=== PATIENT | male | born 2000 | race Caucasian/White ===

== ENCOUNTER 2021-04-06 00:28 | Emergency (ER) | payer OTHER, SELFPAY ==
[2021-04-06 00:33] VITALS: BP 146/77; PULSE 90; RESP 18; TEMP 37; O2SAT 99; BMI 29.0
--- NOTE | 2021-04-06 00:48 | PC.NURSE ---
Mom is in waiting room able to give information- [phone]
--- NOTE | 2021-04-06 02:03 | ED_ITS ---
HPI - Psych General Chief Complaint: Psychiatric Symptoms Stated Complaint: suicidal, depressed Time Seen by Provider: 04/06/21 00:45 Source: patient and family (Mother) Mode of arrival: ambulatory History of Present Illness HPI Narrative: This is a 20-year-old male with a longstanding history of depression who is brought in by his mother for communicating to her that he wished to kill himself. Patient initially is stating that he had overdosed previously on Benadryl and states that that is what his plan is, but when the mother informed the patient that those pills are no longer available patient then states ?I do not know what I would do, but I do not feel like I want to live?. He then asks his mother to leave the room and proceeds to inform me that he had a girlfriend for approximately 1 week and that she ?broke up with me to day and still wants to be friends?. Patient states that this is very difficult and that he is unable to deal with this. He states that while he was with her he felt the best he has in his life and that things were ?possible?. He states that since they have broken up he feels ?worse than before?. He denies any homicidal ideation denies any AVH. Related Data Home Medications Medication Instructions Recorded Confirmed epinephrine 0.3 mg IM NEEDED PRN 04/06/21 04/06/21 fluoride (sodium) 1 appl PO DIRECTED 04/06/21 04/06/21 temazepam 2 cap PO DAILY 04/06/21 04/06/21 trazodone 1 tab PO DAILY 04/06/21 04/06/21 Allergies Allergy/AdvReac Type Severity Reaction Status Date / Time peanut [PEANUT] Allergy Severe ANAPHYLAXIS Verified 04/06/21 00:57 Review of Systems Review of Systems: Pertinent positives and negatives as stated in HPI 10 point review of systems is otherwise negative. PMFSH Past Medical History Source: nursing notes reviewed Medical History Autism Depression Hypospadias Infected dog bite of face OCD (obsessive compulsive disorder) Surgical History History of tonsillectomy Social History Social History Advance Directives: No Advance Directives Information Provided: No Physical Exam Vital Signs: Vital Signs: Last Vital Signs Temp 98.6 F 04/06/21 00:33 Pulse 90 04/06/21 00:33 Resp 18 04/06/21 00:33 BP 146/77 H 04/06/21 00:33 Pulse Ox 99 04/06/21 00:33 Body Mass Index 29.0 VITAL SIGNS: Reviewed. GENERAL: Well developed, well nourished, in no acute distress. HEAD: Normocephalic/atraumatic EYES: PERRLA, EOMI OROPHARYNX: no oral lesions noted, posterior pharynx clear NECK: Supple, no adenopathy LUNGS: Normal breath sounds. SpO2<99> CARDIOVASCULAR: Regular rate and rhythm without noted murmurs ABDOMEN: Soft, non-tender, non-distended with bowel sounds. SKIN: Inspection of the skin reveals no rashes NEUROLOGIC: Alert and oriented x 4. Course Course Course Narrative: 20-year-old male with history and clinical presentation consistent with depression and prior SI with attempt with pills. Of note, mother endorses that his medication was recently decreased and patient admitted during interview that this may contribute to his overall increase in feelings of sadness. Patient to undergo evaluation by the crisis team. Discussion with the crisis team, they feel that patient has excellent support systems and that although he is feeling very sad and depressed he does not have concerning features or plans for killing himself and they feel that he is a safe discharge with enrollment in partial outpatient program for therapy. Patient and mother are agreeable to the partial care plan and prefer this as the patient states that last time he was an inpatient it was a traumatic experience. Therefore, given patient has strong support systems, lack of access to pills as his mother is actively involved in his care, and combination with plans for re- evaluation by the crisis team in the outpatient setting with a safety plan in place patient will be discharged home in the care of his mother. Discharge Plan Discharge Clinical Impression: Depression Patient Disposition: Home, Self-Care Instructions: Depression (ED) Additional Instructions: Resume all home medications as prescribed. Return to the ER for any acute worsening thoughts or feelings about hurting yourself. Prescriptions: No Action trazodone 50 mg tablet 1 tab PO DAILY RF: 0 temazepam 15 mg capsule 2 cap PO DAILY RF: 0 epinephrine 0.3 mg/0.3 mL auto-injector 0.3 mg IM NEEDED PRN (Reason: Anaphylaxis) RF: 0 fluoride (sodium) 1.1 % paste 1 appl PO DIRECTED RF: 0 Referrals: Physician,Unknown [Primary Care Provider] - 2 days
--- NOTE | 2021-04-06 03:22 | MHC.CARE ---
Pt presents to the ED accompanied by his mother for worsening depression and suicidal ideation. Pt's mother reports pt was diagnosed with asphergres d/0 at 6 years old and pt struggles with social interactions therefore internalizes a lot of thoughts/feelings. Mother reports that at baseline, he is depressed and reports suicidal ideation, however today was different. She reports that he disclosed that he wanted to end his life and and I'm really going to do it this time . Pt reports he is painfully tired and shares that he has been hopeless/helpless for many years. He shares that the pandemic and isolation was somewhat comforting to him as he felt now people can get a sense of how I feel every day and for my entire life . He states the pandemic actually did the opposite for him and motivated him, gave him hope and he met many people online that he doesn't feel he would if there was not an pandemic. Pt reports his sleep is poor but has always been poor and appetite is WNL. He appears depressed with no eye contact and affect is flat. He talks about the precipitant being a recent break up. He explains that he met a girl online, had talked to her constantly and at one point in my life I was happy . he ended up going to [place] to meet her and spent the day with her. The following day, she terminated the relationship reporting they are better suited as friends and that the distance could strain their relationship. He reports that she still is interested in remaining friends with him and talk to him everyday but this destroyed him and I want more than what she can give me . He states he is devastated and keeps asking himself if life is really worth it. He shares that one of his moms, he is really close to but the other one he struggles with. He states she recently had a stroke and explains this did some damage on her brain. He shares that it is challenging for him because she just isn't the same . Pt discloses suicidal thinking, denies plan or intent. 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 He states I really don't want to do anything, but I think about it a lot. I have been picking up extra jobs to commit to so that I can say to myself that people need me . He is able to verbalize that he can remain safe and return home. He denies current suicidal ideation and a safety plan was discussed and written. Pt's mother reports that when he was in 7th grade, he ingested several pills of Benadryl and was admitted to ICU and then to [facility]. [place] was not helpful to him and was very traumatizing that this always deterred him from any suicide attempt. Mom ([place]) reports that she does not believe pt has the energy or motivation to carry out a plan or attempt. She adds that he wouldn't know how, he doesn't know what to do with a knife and he would be too scared to . She describes when he ingested the Benadryl this was not classified as a suicide attempt, she reports he just wanted to sleep, in his mind he thought was an reasonable action. Both mother and pt deny any recent attempts. Pt has a therapist, Dr. Timoteo Duarte that pt sees for individual therapy and family sessions. His psychiatrist is Dr. Parker Reyes. Mom reports that he has been tapered off of his antidepressants and has not seen any difference than when he was on them. 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 [facility] was discussed with him and mom in which he was receptive to. He will call [facility] tomorrow to clarify if it is all remote or in person. He will then complete an intake when necessary and start treatment. Safety plan was conducted and he agreed to follow. Pt is requesting to be discharged and wants to sleep.
--- NOTE | 2021-04-06 03:28 | PC.NURSE ---
Patient calm and quiet in his room with mother at bedside, care team completed assessment, disposition is to d/c home with safety plan, patient and provider aware of it, awaiting d/c paper, no distress reported, will continue to monitor
== END 2021-04-06 04:30 | disposition home or self-care (01) ==
PROVIDERS: Emergency Provider Student in an Organized Health Care Education/Training Program
DX: F32.9 Major depressive disorder, single episode, unspecified (principal); F84.0 Autistic disorder; Z91.5 Personal history of self-harm
CPT/HCPCS: 99283

== ENCOUNTER 2023-03-19 23:09 | Inpatient (IN) | payer OTHER, SELFPAY ==
[2023-03-19 23:11] VITALS: BP 146/88; PULSE 127; RESP 18; TEMP 36.6; O2SAT 97; BMI 24.2
[2023-03-19 23:50] VITALS: BP 149/102; PULSE 114; RESP 20; TEMP 37.1; O2SAT 97
[2023-03-19 23:53] LABS: MANUAL DIFF FLAG NO
[2023-03-19 23:54] LABS: Basophils Percent Auto 0.2 % (0-2); Eosinophils Percent Auto 0.2 % (0-4); Hematocrit 45.7 % (42.0-52.0); Hemoglobin 15.6 g/dl (14.0-18.0); Imm Gran Abs Auto 0.03 X10*3/uL (0.00-0.03); Imm Gran Pct Auto 0.2 % (0.0-0.4); Lymphocytes Absolute Auto 2.4 X10*3/uL (1.2-4.9); Lymphocytes Percent Auto 19.8 % (20-40); Mean Corpuscular HGB Conc 34.1 g/dl (31.0-36.0); Mean Corpuscular Hemoglobin 31.3 pg (27.0-33.0); Mean Corpuscular Volume 91.8 fL (80.0-98.0); Mean Platelet Volume 9.7 fL (9.4-12.4); Monocytes Absolute Auto 0.5 X10*3/uL (0.1-1.2); Neutrophils Absolute Auto 9.2 x10*3/uL (2.0-8.3); Neutrophils Percent Auto 75.6 % (45-73); Platelet Count 306 X10*3/uL (160-400); Red Blood Count 4.98 X10*6/uL (4.60-5.80); Red Cell Distribution Width 11.8 % (11.0-16.0); White Blood Count 12.1 X10*3/uL (4.8-10.8)
[2023-03-19 23:58] LABS: Appearance Urine Clear; Color Urine Yellow; Glucose Urine UA Negative (Negative); Leukocyte Esterase Urine Negative (Negative); Nitrite Urine Negative (Negative); PH 8.5 (5.0-9.0); Urine Blood Negative (Negative); Urine Ketones Negative (Negative); Urine Protein Trace mg/dL (Neg-Trace)
[2023-03-20] MEDS: LORazepam 1 MG TABLET 2 MG PO
[2023-03-20 00:04] LABS: Amphetamine Screen Urine Not Detected (Not Detect); Barbiturates, Urine Not Detected (Not Detect); Benzodiazepines Screen Urine Not Detected (Not Detect); Cannabinoid Screen Urine POSITIVE (Not Detect); Cocaine Screen Urine Not Detected (Not Detect); Fentanyl, urine Not Detected (Not Detect); Opiate Screen Urine Not Detected (Not Detect); Phencyclidine Screen Urine Not Detected (Not Detect)
[2023-03-20 00:11] LABS: Alanine Aminotransferase 17 U/L (0-40); Albumin Level 4.9 g/dL (3.5-5.0); Alkaline Phosphatase 73 U/L (39-117); Anion Gap 16 (12-20); Aspartate Amino Transferase 17 U/L (5-37); Bilirubin Total 0.7 mg/dL (0.0-1.0); Blood Urea Nitrogen 8 mg/dL (9-16); Calcium 9.6 mg/dL (8.4-10.2); Carbon Dioxide 21 mmol/L (22-29); Chloride 108 mmol/L (96-108); Estimated Glomerular Filt Rate > 60; Ethanol < 10 mg/dL; Glucose Random 102 mg/dL (60-115); Potassium 3.9 mmol/L (3.3-5.1); Sodium 141 mmol/L (135-145); Total Protein 8.2 g/dL (6.5-8.0)
--- NOTE | 2023-03-20 00:36 | ED_ITS ---
HPI - Psych General Chief Complaint: Psychiatric Symptoms Stated Complaint: psych, hand lac Time Seen by Provider: 03/19/23 23:52 Source: patient Mode of arrival: ambulatory Limitations: no limitations History of Present Illness HPI Narrative: Patient's history of autism feeling increasingly depressed with suicidal thought tried to hurt himself with history of same in the past selling all his belongings in preparation for SI attempt. Related Data Home Medications Medication Instructions Recorded Confirmed temazepam 15 mg capsule 30 mg PO DAILY 03/19/23 03/19/23 trazodone 50 mg tablet 75 mg PO DAILY 03/19/23 03/19/23 venlafaxine 37.5 mg 37.5 mg PO DAILY 03/19/23 03/19/23 capsule,extended release 24 hr cetirizine 10 mg tablet (Zyrtec) 10 mg PO BEDTIME 03/20/23 03/20/23 Allergies Allergy/AdvReac Type Severity Reaction Status Date / Time peanut [PEANUT] Allergy Severe ANAPHYLAXIS Verified 04/06/21 00:57 Review of Systems Review of Systems: Yes all other systems are reviewed and are negative PMF Past Medical History Medical History Autism Depression Hypospadias Infected dog bite of face OCD (obsessive compulsive disorder) Surgical History History of tonsillectomy Social History Social History Advance Directives: No Advance Directives Information Provided: No Physical Exam Vital Signs: Vital Signs: Last Vital Signs Temp 98.8 F 03/19/23 23:50 Pulse 114 H 03/19/23 23:50 Resp 17 03/20/23 06:23 BP 149/102 H 03/19/23 23:50 Pulse Ox 97 03/19/23 23:50 O2 Del Method Room Air 03/20/23 06:23 BMI result Body Mass Index 24.2 Appearance: Alert. Oriented X3. No acute distress. Looks anxious Eyes: PERRLA, No Nystagmus ENT: Pharynx normal. Oral Mucosa moist Neck: Normal inspection. Neck supple. CVS: Normal heart rate and rhythm. Pulses normal. Respiratory: No respiratory distress. Equal air entry bilateral, no wheezing/rales/rhonchi Abdomen: Soft and nontender. Bowel sounds are present, no mass palpable, no CVA tenderness Skin: Skin warm and dry. Normal skin color. Normal skin turgor. Extremities: No lower extremity edema. No calf tenderness psych: Anxious with SI thoughts no HI or hallucination Neuro: Oriented X 3. No motor deficit. No sensory deficit.No cerebellar signs , cranial nerves II-XII intact Medications Administered Generic Name Dose Route Start Last Admin Trade Name Freq PRN Reason Stop Dose Admin Temazepam 30 mg 03/20/23 09:00 03/20/23 02:13 Temazepam 15 Mg Capsule PO 30 mg DAILY ALAN Administration Trazodone HCl 75 mg 03/20/23 09:00 03/20/23 02:13 Trazodone Hcl 25 Mg Halftab PO 75 mg DAILY ALAN Administration Venlafaxine HCl 37.5 mg 03/20/23 09:00 03/20/23 02:13 Venlafaxine Hcl Er 37.5 Mg Cap.Er.24h PO 37.5 mg DAILY ALAN Administration Discontinued Medications Generic Name Dose Route Start Last Admin Trade Name Freq PRN Reason Stop Dose Admin Loratadine 10 mg 03/20/23 02:20 03/20/23 02:26 Loratadine 10 Mg Tablet PO 03/20/23 02:21 10 mg ONCE ONE Administration Lorazepam 2 mg 03/19/23 23:57 03/20/23 00:00 Lorazepam 1 Mg Tablet PO 03/19/23 23:58 2 mg ONCE ONE Administration Medical Decision Making Medical Decision Making [facility] Narrative: Patient with autism spectrum depression will be seen by [facility] time disposition according to their decision Lab Data [facility] Lab Attestation statement: I reviewed the patient's lab results. 03/19/23 23:48 03/19/23 23:48 Labs: Lab Results 03/19/23 03/19/23 03/19/23 Range/Units 23:48 23:48 23:48 WBC 12.1 H (4.8-10.8) X10*3/uL RBC 4.98 (4.60-5.80) X10*6/uL Hgb 15.6 (14.0-18.0) g/dl Hct 45.7 (42.0-52.0) % MCV 91.8 (80.0-98.0) fL MCH 31.3 (27.0-33.0) pg MCHC 34.1 (31.0-36.0) g/dl RDW 11.8 (11.0-16.0) % Plt Count 306 (160-400) X10*3/uL MPV 9.7 (9.4-12.4) fL Immature Gran % (Auto) 0.2 (0.0-0.4) % Neut % (Auto) 75.6 H (45-73) % Lymph % (Auto) 19.8 L (20-40) % [place] % (Auto) 4.0 (2-11) % Eos % (Auto) 0.2 (0-4) % Baso % (Auto) 0.2 (0-2) % Lymph # (Auto) 2.4 (1.2-4.9) X10*3/uL [place] # (Auto) 0.5 (0.1-1.2) X10*3/uL Eos # (Auto) 0.0 (0.0-0.4) X10*3/uL Baso # (Auto) 0.0 (0.0-0.2) X10*3/uL Abs Immat Gran (auto) 0.03 (0.00-0.03) X10*3/uL Absolute Neuts (auto) 9.2 H (2.0-8.3) x10*3/uL Absolute Nucleated RBC 0.000 (0.0-0.012) X10*3/uL Nucleated RBC % (auto) 0.0 (0.0-0.2) /100WBC Sodium 141 (135-145) mmol/L Potassium 3.9 (3.3-5.1) mmol/L Chloride 108 (96-108) mmol/L Carbon Dioxide 21 L (22-29) mmol/L Anion Gap 16 (12-20) BUN 8 L (9-16) mg/dL Creatinine 0.83 (0.5-1.4) mg/dL Estim Creat Clear Calc 127.0 Estimated GFR > 60 Random Glucose 102 (60-115) mg/dL Calcium 9.6 (8.4-10.2) mg/dL Total Bilirubin 0.7 (0.0-1.0) mg/dL AST 17 (5-37) U/L ALT 17 (0-40) U/L Alkaline Phosphatase 73 (39-117) U/L Total Protein 8.2 H (6.5-8.0) g/dL Albumin 4.9 (3.5-5.0) g/dL Urine Color Urine Appearance Urine pH (5.0-9.0) Ur Specific [place] (1.005-1.025) Urine Protein (Neg-Trace) mg/dL Urine Glucose (UA) (Negative) mg/dL Urine Ketones (Negative) mg/dL Urine Blood (Negative) Urine Nitrite (Negative) Ur Leukocyte Esterase (Negative) Urine Opiates Screen Not Detected (Not Detect) Urine Fentanyl Screen Not Detected (Not Detect) Ur Barbiturates Screen Not Detected (Not Detect) Ur Phencyclidine Scrn Not Detected (Not Detect) Ur Amphetamines Screen Not Detected (Not Detect) U Benzodiazepines Scrn Not Detected (Not Detect) Urine Cocaine Screen Not Detected (Not Detect) U Marijuana (THC) Screen POSITIVE H (Not Detect) Ethyl Alcohol < 10 mg/dL 03/19/23 Range/Units 23:48 WBC (4.8-10.8) X10*3/uL RBC (4.60-5.80) X10*6/uL Hgb (14.0-18.0) g/dl Hct (42.0-52.0) % MCV (80.0-98.0) fL MCH (27.0-33.0) pg MCHC (31.0-36.0) g/dl RDW (11.0-16.0) % Plt Count (160-400) X10*3/uL MPV (9.4-12.4) fL Immature Gran % (Auto) (0.0-0.4) % Neut % (Auto) (45-73) % Lymph % (Auto) (20-40) % [place] % (Auto) (2-11) % Eos % (Auto) (0-4) % Baso % (Auto) (0-2) % Lymph # (Auto) (1.2-4.9) X10*3/uL [place] # (Auto) (0.1-1.2) X10*3/uL Eos # (Auto) (0.0-0.4) X10*3/uL Baso # (Auto) (0.0-0.2) X10*3/uL Abs Immat Gran (auto) (0.00-0.03) X10*3/uL Absolute Neuts (auto) (2.0-8.3) x10*3/uL Absolute Nucleated RBC (0.0-0.012) X10*3/uL Nucleated RBC % (auto) (0.0-0.2) /100WBC Sodium (135-145) mmol/L Potassium (3.3-5.1) mmol/L Chloride (96-108) mmol/L Carbon Dioxide (22-29) mmol/L Anion Gap (12-20) BUN (9-16) mg/dL Creatinine (0.5-1.4) mg/dL Estim Creat Clear Calc Estimated GFR Random Glucose (60-115) mg/dL Calcium (8.4-10.2) mg/dL Total Bilirubin (0.0-1.0) mg/dL AST (5-37) U/L ALT (0-40) U/L Alkaline Phosphatase (39-117) U/L Total Protein (6.5-8.0) g/dL Albumin (3.5-5.0) g/dL Urine Color Yellow Urine Appearance Clear Urine pH 8.5 (5.0-9.0) Ur Specific [place] 1.020 (1.005-1.025) Urine Protein Trace (Neg-Trace) mg/dL Urine Glucose (UA) Negative (Negative) mg/dL Urine Ketones Negative (Negative) mg/dL Urine Blood Negative (Negative) Urine Nitrite Negative (Negative) Ur Leukocyte Esterase Negative (Negative) Urine Opiates Screen (Not Detect) Urine Fentanyl Screen (Not Detect) Ur Barbiturates Screen (Not Detect) Ur Phencyclidine Scrn (Not Detect) Ur Amphetamines Screen (Not Detect) U Benzodiazepines Scrn (Not Detect) Urine Cocaine Screen (Not Detect) U Marijuana (THC) Screen (Not Detect) Ethyl Alcohol mg/dL Discharge Plan Discharge Clinical Impression: Autism, Depression Patient Disposition: Still a Patient Prescriptions: No Action venlafaxine 37.5 mg capsule,extended release 24hr 37.5 mg PO DAILY trazodone 50 mg tablet 75 mg PO DAILY temazepam 15 mg capsule 30 mg PO DAILY cetirizine [Zyrtec] 10 mg Tablet 10 mg PO BEDTIME Interventions: [place]-Suicide Risk Severity Scale Last Done: 03/20/23 00:43
[2023-03-20] MEDS: Venlafaxine HCl ER 37.5 MG CAP.ER.24H PO ×2 (02:13→22:16)
[2023-03-20] MEDS: traZODone HCL 25 MG HALFTAB 75 MG PO ×2 (02:13→22:15)
[2023-03-20] MEDS: Temazepam 15 MG CAPSULE 30 MG PO ×2 (02:13→22:15)
[2023-03-20] MEDS: Loratadine 10 MG TABLET PO ×2 (02:26→22:22)
--- NOTE | 2023-03-20 06:21 | PC.NURSE ---
Patient struggle to fall sleep but slept through the night, Ativan 2 mg PO administered at 0000 followed by HS medication, medication compliant, no distress observed/reported, emotionally labile behavior non concerning but unpredictable, care consult ordered/pending evaluation, will continue to monitor
[2023-03-20 06:23] VITALS: RESP 17
[2023-03-20 13:31] VITALS: BP 134/79; PULSE 100; RESP 20; TEMP 37; O2SAT 99
--- NOTE | 2023-03-20 19:40 | MHC.CARE ---
Patient evaluated by the CARE Team, disposition inpatient psychiatric admission. Is pre-accepted for tomorrow but there are detail to work out, mainly if will patient be able to listen to music while on a unit. CARE Team/ Director will discuss at Rounds tomorrow morning.
[2023-03-20 23:51] VITALS: BP 115/70; PULSE 81; RESP 17; TEMP 36.4; O2SAT 95
[2023-03-20 23:55] LABS: IDNOW Serial# 08D9AD1C
[2023-03-20 23:56] LABS: COVID-19 Test Negative (Negative)
--- NOTE | 2023-03-21 08:00 | PC.NURSE ---
Pt visualized on room camera. Sleeping comfortably on stretcher.
--- NOTE | 2023-03-21 10:06 | PC.NURSE ---
Pt visualized on camera. He is resting comfortably on stretcher, repositioning self.
--- NOTE | 2023-03-21 10:30 | PC.NURSE ---
Pt sleeping all morning. pt awake at this time, reports intrusive thoughts and feeling unsafe at home. pt offered food and declined at this time.
--- NOTE | 2023-03-21 12:02 | PC.NURSE ---
Pt sitting in common area visiting with mother. Calm and cooperative at this time.
--- NOTE | 2023-03-21 13:03 | PC.NURSE ---
Meal offered. pt declined. pt was offered cereal that mom brought in, declined that as well.
--- NOTE | 2023-03-21 16:15 | PC.NURSE ---
Pt sitting in common area watching TV. calm and cooperative.
--- NOTE | 2023-03-21 17:03 | PC.NURSE ---
Nurse to nurse to Will, RN on M5
[2023-03-21 17:07] VITALS: BP 123/73; PULSE 92; RESP 16; TEMP 37.2; O2SAT 96
[2023-03-21 18:20] VITALS: BP 129/83; PULSE 93; RESP 18; TEMP 36.4; O2SAT 99
[2023-03-21 19:35] VITALS: BMI 23.5
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
[2023-03-22] MEDS: Temazepam 15 MG CAPSULE 30 MG PO ×2 (00:05→21:56)
[2023-03-22] MEDS: traZODone HCL 25 MG HALFTAB 75 MG PO ×2 (00:08→21:56)
[2023-03-22 08:00] VITALS: BP 118/78; PULSE 81; RESP 18; TEMP 36.5; O2SAT 98
[2023-03-22] MEDS: Venlafaxine HCl ER 37.5 MG CAP.ER.24H PO ×2 (08:17→13:44)
[2023-03-22 08:53] LABS: Estimated Average Glucose 91 mg/dL; Hemoglobin A1c % 4.8 %
[2023-03-22 09:08] LABS: Alanine Aminotransferase 15 U/L (0-40); Alkaline Phosphatase 64 U/L (39-117); Anion Gap 17 (12-20); Aspartate Amino Transferase 17 U/L (5-37); Bilirubin Total 1.6 mg/dL (0.0-1.0); Blood Urea Nitrogen 10 mg/dL (9-16); Calcium 10.1 mg/dL (8.4-10.2); Carbon Dioxide 23 mmol/L (22-29); Chloride 105 mmol/L (96-108); Cholesterol 178 mg/dL; Creatinine Clr Calc Pharmacy 103.3; Estimated Glomerular Filt Rate > 60; Glucose Fasting 89 mg/dL (60-99); HDL Cholesterol 42 mg/dL; LDL Cholesterol Calculated 115 mg/dl; Potassium 3.8 mmol/L (3.3-5.1); Sodium 141 mmol/L (135-145); Total Protein 8.4 g/dL (6.5-8.0); Triglycerides 106 mg/dL
[2023-03-22 09:25] LABS: Thyroid Stimulating Hormone 1.22 uIU/mL (0.32-4.0)
[2023-03-22 09:33] LABS: Folate 16.1 ng/mL (> or = 4.0); Vitamin B12 1454 pg/mL (200-900)
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
[2023-03-22] MEDS: lamoTRIgine 25 MG TABLET PO (13:44)
[2023-03-22 18:00] VITALS: BP 128/86; PULSE 92; RESP 18; TEMP 36.1; O2SAT 98
[2023-03-22] MEDS: cloNIDine HCL 0.1 MG TABLET PO ×2 (18:08→23:02)
[2023-03-22] MEDS: hydrOXYzine HCL 25 MG TABLET PO (21:56)
[2023-03-22 22:50] VITALS: BP 118/69; PULSE 81; RESP 18; O2SAT 99
[2023-03-23 09:35] VITALS: BP 122/65; PULSE 76; RESP 18; TEMP 36.2; O2SAT 99
[2023-03-23] MEDS: Venlafaxine HCl ER 75 MG CAP.ER.24H PO (09:39)
[2023-03-23] MEDS: lamoTRIgine 25 MG TABLET PO (09:39)
[2023-03-23 15:45] VITALS: BP 119/72; PULSE 82; TEMP 36; O2SAT 99
[2023-03-23] MEDS: cloNIDine HCL 0.1 MG TABLET PO ×2 (15:47→22:12)
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
[2023-03-23] MEDS: Temazepam 15 MG CAPSULE 30 MG PO (22:50)
[2023-03-23] MEDS: traZODone HCL 25 MG HALFTAB 75 MG PO (22:50)
--- NOTE | 2023-03-24 08:55 | HO.PSYCHPN ---
Subjective Subjective Date of Service: 03/24/23 Reason For Visit: SI Interim History: Pt engaged in milieu, and interacting with peers. Discussed with the team. Plan of care reviewed. Reports appetite and sleep are adequate, no dangerous behavioral symptoms reported. No medication changes today. Medication Compliance: Yes Side effects from medications: No Attending Groups: Intermittent Review of Systems Acute medical concerns: No Medical Review of Systems: unchanged Mental Status Exam Mental Status Exam Patient Appearance: Appropriate Patient Orientation: Person, Place, Time and Situation Level of Consciousness: Alert Patient Behavior: Talkative and Good Eye Contact Mood Description: Anxious Affect Description: Anxious Patient Cognition Impaired: No Ability to Follow Directions: Good Speech Pattern: Spontaneous Speech Memory Description: Intact Hallucinations: None Delusions: Not Present Perceptual Disturbances: Derealization Thought Process: Rumination Thought Content: positive for Perseveration Depressive Symptoms: Increased Anxiety Abnormal Motor Activity Signs and Symptoms: Restlessness Judgement: Fair Diagnostics Vital Signs (24Hr): Vital Signs - 24 hr 03/23/23 09:35 03/23/23 15:45 Temperature 97.1 F 96.8 F Pulse Rate 76 82 Respiratory Rate 18 Blood Pressure 122/65 119/72 Pulse Oximetry 99 99 Oxygen Delivery Method Room Air Room Air BMI result Body Mass Index 23.5 Labs 03/19/23 23:48 03/22/23 08:13 Labs: Laboratory Results - last 48 hr 03/22/23 03/22/23 08:13 08:13 Sodium 141 Potassium 3.8 Chloride 105 Carbon Dioxide 23 Anion Gap 17 BUN 10 Creatinine 1.02 Estim Creat Clear Calc 103.3 Estimated GFR > 60 Fasting Glucose 89 Calcium 10.1 Total Bilirubin 1.6 H AST 17 ALT 15 Alkaline Phosphatase 64 Total Protein 8.4 H Albumin 5.0 Triglycerides 106 Cholesterol 178 LDL Cholesterol, Calc 115 HDL Cholesterol 42 Vitamin B12 1454 H Folate 16.1 TSH 1.22 Medications Medications Current Medications Acetaminophen (Acetaminophen 325 Mg Tablet) 650 mg PO Q6H PRN PRN Reason: Headache/Pain Mild Scale (1-3) Al Hydroxide/Mg Hydroxide (Magnesium Hydrox/Alum Hydrox 30 Ml Oral.Susp) 30 ml PO Q6H PRN PRN Reason: Heartburn/Nausea Clonidine HCl (Clonidine Hcl 0.1 Mg Tablet) 0.1 mg PO Q4H PRN; Protocol PRN Reason: anxiety Last Admin: 03/23/23 22:12 Dose: 0.1 mg Hydroxyzine HCl (Hydroxyzine Hcl 25 Mg Tablet) 25 mg PO Q6H PRN PRN Reason: Anxiety Last Admin: 03/22/23 21:56 Dose: 25 mg Lamotrigine (Lamotrigine 25 Mg Tablet) 25 mg PO DAILY [facility] Last Admin: 03/23/23 09:39 Dose: 25 mg Magnesium Hydroxide (Milk Of Magnesia 30 Ml Oral.Susp) 30 ml PO DAILY PRN PRN Reason: Constipation Temazepam (Temazepam 15 Mg Capsule) 30 mg PO BEDTIME ALAN Last Admin: 03/23/23 22:50 Dose: 30 mg Trazodone HCl (Trazodone Hcl 25 Mg Halftab) 75 mg PO BEDTIME ALAN Last Admin: 03/23/23 22:50 Dose: 75 mg Trazodone HCl (Trazodone Hcl 50 Mg Tablet) 50 mg PO BEDTIME PRN PRN Reason: Insomnia Venlafaxine HCl (Venlafaxine Hcl Er 75 Mg Cap.Er.24h) 75 mg PO DAILY [facility] Last Admin: 03/23/23 09:39 Dose: 75 mg Allergies Allergies Allergy/AdvReac Type Severity Reaction Status Date / Time peanut [PEANUT] Allergy Severe ANAPHYLAXIS Verified 04/06/21 00:57 Assessment & Plan Assessment & Plan (1) MDD (major depressive disorder), recurrent episode, severe: Status: Acute Code(s): F33.2 - Major depressive disorder, recurrent severe without psychotic features (2) Chronic post-traumatic stress disorder (PTSD): Status: Acute Code(s): F43.12 - Post-traumatic stress disorder, chronic (3) OCD (obsessive compulsive disorder): Status: Acute Code(s): F42.9 - Obsessive-compulsive disorder, unspecified (4) Autism: Status: Acute Code(s): F84.0 - Autistic disorder (5) Bulimia: Status: Acute Code(s): F50.2 - Bulimia nervosa Plan Patient is a 22-year-old male with history of ASD, PTSD, depression, chronic SI and emotional reactivity who presents with SI, feeling emotionally dysregulated due to continued upsetting interactions with mother (Dione), and other psychosocial stressors. -patient meets criteria for OCD in addition to PTSD, depression; patient has diagnosis of ASD with some accompanied symptoms though patient is quite high functioning, makes good eye contact, welcomes touch... Patient also exhibiting borderline traits which are very likely contributory. -patient has not had any adequate medication trials. Will increase venlafaxine since he has tolerated thus far; will also start Lamictal for combination of PTSD, OCD, borderline traits and depression; reviewed risks/side effects with both patient and his mother and they both agree. -Patient reports that he has chronic SI in the form of passive wish but that all active SI has now fully resolved and he is able to ignore the intermittent chronic passive wish thoughts. Allowed to use ear buds 15/04 including during sleep; iPhone and I phone labeling associate to be kept at nurse's station; patient can request music changes; cleared with administration Patient explains that he damián with his autism by listening to specific music, almost consistently throughout the day and night. Patient has specific albums on his phone that he listens to to help him cope through specific activities. He says that without it he has a very hard time thinking clearly or even talking with this insurance underwriter. Patient's mother Philly corroborates that patient has been utilizing this coping strategy since young childhood and that for his entire life time they have carried around CDs which he listens to near continuously and without, quickly gets emotionally dysregulated. Philly explains that as a part of his IEP in school, he was allowed to use his ear phone/music even while taking tests. She corroborates that Without it patient has a hard time eating and is unable to sleep. PLAN: CV Q 15 minute checks Increase venlafaxine ER to 75 mg daily; will likely continue to titrate as patient has OCD and will likely need higher than normal doses Start Lamictal 25 mg daily; discussed risks/side effects with patient and his mother who both understand and would like to proceed with this medication HOSPITAL COURSE 03/24/23: Continue current regime and plan of care. Informed Consent: understands Reason for continued inpatient stay Substantial Risk for: harm to self and rapid decompensation Time Spent With Patient Time: Total time managing care of this patient today ____ minutes.
[2023-03-24 09:10] VITALS: BP 127/66; PULSE 67; RESP 18; TEMP 36.5; O2SAT 100
[2023-03-24] MEDS: lamoTRIgine 25 MG TABLET PO (09:13)
[2023-03-24] MEDS: Venlafaxine HCl ER 75 MG CAP.ER.24H PO (09:13)
[2023-03-24] MEDS: cloNIDine HCL 0.1 MG TABLET PO ×3 (13:51→22:46)
[2023-03-24 18:00] VITALS: BP 128/76; PULSE 84; RESP 18; TEMP 36.5; O2SAT 99
[2023-03-24] MEDS: traZODone HCL 50 MG TABLET PO (22:46)
[2023-03-24] MEDS: Temazepam 15 MG CAPSULE 30 MG PO (22:47)
[2023-03-24] MEDS: traZODone HCL 25 MG HALFTAB 75 MG PO (22:47)
[2023-03-25] MEDS: lamoTRIgine 25 MG TABLET PO (08:13)
[2023-03-25] MEDS: Venlafaxine HCl ER 75 MG CAP.ER.24H PO (08:13)
[2023-03-25 08:15] VITALS: BP 119/71; PULSE 83; RESP 18; TEMP 35.9; O2SAT 100
--- NOTE | 2023-03-25 10:06 | HO.PSYCHPN ---
Subjective Subjective Date of Service: 03/25/23 Reason For Visit: SI Interim History: met with patient; Discussed with team Patient reports he is feeling better. Still dealing with anxiety however feels it is under better control. Patient shared he remains struggling with self-deprecating thoughts or self defeating thoughts that he will never achieve his goals; patient says he is working to challenge himself on how he thinks and how he perceives things. Still has intermittent daily suicidality since he would no longer have the struggles he does if he were however this is the chronic low level type that can be ignored and he is without an active plan or intent; patient remains future oriented, wanting to learn how to cope through such feelings. Engaged in CBT discussion about automatic thoughts. Discussed some of the rigidity associated with ASD Mental Status Exam Mental Status Exam Narrative: Pt is alert and oriented; behavior is cooperative, friendly and calm; patient is not in distress; dressed in casual attire with unkempt hair and scruffy sands but adequate hygiene; mood is described as good and affect congruent; eye contact appropriate; Speech is normal rate, volume and prosody and not pressured; no psychomotor agitation/retardation present; thought process is organized and goal directed; Thought content is on tx; otherwise pertinent to relevant topics and without any delusional content, paranoid ideations or grandiosity; intermittent SI but chronic and able to be ignored; no HI. There is no evidence of perceptual disturbance. Patients insight and judgment improved, fair and at baseline. Diagnostics Vital Signs (24Hr): Vital Signs - 24 hr 03/24/23 18:00 03/25/23 08:15 Temperature 97.7 F 96.7 F L Pulse Rate 84 83 Respiratory Rate 18 18 Blood Pressure 128/76 119/71 Pulse Oximetry 99 100 Oxygen Delivery Method Room Air Room Air BMI result Body Mass Index 23.5 Labs 03/19/23 23:48 03/22/23 08:13 Medications Medications Current Medications Acetaminophen (Acetaminophen 325 Mg Tablet) 650 mg PO Q6H PRN PRN Reason: Headache/Pain Mild Scale (1-3) Al Hydroxide/Mg Hydroxide (Magnesium Hydrox/Alum Hydrox 30 Ml Oral.Susp) 30 ml PO Q6H PRN PRN Reason: Heartburn/Nausea Clonidine HCl (Clonidine Hcl 0.1 Mg Tablet) 0.1 mg PO Q4H PRN; Protocol PRN Reason: anxiety Last Admin: 03/24/23 22:46 Dose: 0.1 mg Hydroxyzine HCl (Hydroxyzine Hcl 25 Mg Tablet) 25 mg PO Q6H PRN PRN Reason: Anxiety Last Admin: 03/22/23 21:56 Dose: 25 mg Lamotrigine (Lamotrigine 25 Mg Tablet) 25 mg PO DAILY [facility] Last Admin: 03/25/23 08:13 Dose: 25 mg Magnesium Hydroxide (Milk Of Magnesia 30 Ml Oral.Susp) 30 ml PO DAILY PRN PRN Reason: Constipation Temazepam (Temazepam 15 Mg Capsule) 30 mg PO BEDTIME [facility] Last Admin: 03/24/23 22:47 Dose: 30 mg Trazodone HCl (Trazodone Hcl 25 Mg Halftab) 75 mg PO BEDTIME [facility] Last Admin: 03/24/23 22:47 Dose: 75 mg Trazodone HCl (Trazodone Hcl 50 Mg Tablet) 50 mg PO BEDTIME PRN PRN Reason: Insomnia Last Admin: 03/24/23 22:46 Dose: 50 mg Venlafaxine HCl (Venlafaxine Hcl Er 75 Mg Cap.Er.24h) 75 mg PO DAILY [facility] Last Admin: 03/25/23 08:13 Dose: 75 mg Allergies Allergies Allergy/AdvReac Type Severity Reaction Status Date / Time peanut [PEANUT] Allergy Severe ANAPHYLAXIS Verified 04/06/21 00:57 Assessment & Plan Assessment & Plan (1) MDD (major depressive disorder), recurrent episode, severe: Status: Acute Code(s): F33.2 - Major depressive disorder, recurrent severe without psychotic features (2) Chronic post-traumatic stress disorder (PTSD): Status: Acute Code(s): F43.12 - Post-traumatic stress disorder, chronic (3) OCD (obsessive compulsive disorder): Status: Acute Code(s): F42.9 - Obsessive-compulsive disorder, unspecified (4) Autism: Status: Acute Code(s): F84.0 - Autistic disorder (5) Bulimia: Status: Acute Code(s): F50.2 - Bulimia nervosa Plan Patient is a 22-year-old male with history of ASD, PTSD, depression, chronic SI and emotional reactivity who presents with SI, feeling emotionally dysregulated due to continued upsetting interactions with mother (Dione), and other psychosocial stressors. -patient meets criteria for OCD in addition to PTSD, depression; patient has diagnosis of ASD with some accompanied symptoms though patient is quite high functioning, makes good eye contact, welcomes touch... Patient also exhibiting borderline traits which are very likely contributory. -patient has not had any adequate medication trials. Will increase venlafaxine since he has tolerated thus far; will also start Lamictal for combination of PTSD, OCD, borderline traits and depression; reviewed risks/side effects with both patient and his mother and they both agree. -Patient reports that he has chronic SI in the form of passive wish but that all active SI has now fully resolved and he is able to ignore the intermittent chronic passive wish thoughts. Allowed to use ear buds 15/04 including during sleep; iPhone and I phone home care aide to be kept at nurse's station; patient can request music changes; cleared with administration Patient explains that he damián with his autism by listening to specific music, almost consistently throughout the day and night. Patient has specific albums on his phone that he listens to to help him cope through specific activities. He says that without it he has a very hard time thinking clearly or even talking with this personal lines underwriter. Patient's mother Philly corroborates that patient has been utilizing this coping strategy since young childhood and that for his entire life time they have carried around CDs which he listens to near continuously and without, quickly gets emotionally dysregulated. Philly explains that as a part of his IEP in school, he was allowed to use his ear phone/music even while taking tests. She corroborates that Without it patient has a hard time eating and is unable to sleep. HOSPITAL COURSE 03/24/23: Continue current regime and plan of care. 03/25 improving. Social in the milieu. Coping; increasing Effexor; patient reports doing better and no SI. Feels like he will be able to handle upsetting feelings from his mother PLAN: CV Q 15 minute checks Increased venlafaxine ER to 112.5 mg daily; will likely continue to titrate as patient has OCD and will likely need higher than normal doses Start Lamictal 25 mg daily; discussed risks/side effects with patient and his mother who both understand and would like to proceed with this medication Patient educated on: diagnosis, medication risk/benefits and therapeutic strategies Informed Consent: understands Reason for continued inpatient stay Substantial Risk for: stable for discharge Time Spent With Patient Time: Total time managing care of this patient today ____ minutes.
[2023-03-25] MEDS: cloNIDine HCL 0.1 MG TABLET PO ×2 (18:21→22:56)
[2023-03-25 18:25] VITALS: BP 120/60; PULSE 87; RESP 18; TEMP 35.8; O2SAT 99
[2023-03-25] MEDS: traZODone HCL 25 MG HALFTAB 75 MG PO (22:52)
[2023-03-25] MEDS: Temazepam 15 MG CAPSULE 30 MG PO (22:52)
[2023-03-26 08:40] VITALS: BP 123/66; PULSE 84; RESP 18; TEMP 36.1; O2SAT 100
[2023-03-26] MEDS: lamoTRIgine 25 MG TABLET PO (08:47)
[2023-03-26] MEDS: Venlafaxine HCl ER 75 MG CAP.ER.24H PO (08:47)
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
[2023-03-26 12:35] VITALS: BP 112/69
[2023-03-26] MEDS: cloNIDine HCL 0.1 MG TABLET PO ×2 (12:43→19:11)
[2023-03-26 19:10] VITALS: BP 115/64; PULSE 95; RESP 16; TEMP 36.1; O2SAT 100
[2023-03-26] MEDS: Temazepam 15 MG CAPSULE 30 MG PO (23:31)
[2023-03-26] MEDS: traZODone HCL 25 MG HALFTAB 75 MG PO (23:32)
[2023-03-27 08:05] VITALS: BP 132/74; PULSE 83; RESP 18; TEMP 36.2; O2SAT 100
[2023-03-27] MEDS: Venlafaxine HCl ER 75 MG CAP.ER.24H PO (08:47)
[2023-03-27] MEDS: lamoTRIgine 25 MG TABLET PO (08:47)
[2023-03-27] MEDS: cloNIDine HCL 0.1 MG TABLET PO ×2 (08:49→13:59)
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
[2023-03-27 18:00] VITALS: BP 130/77; PULSE 90; TEMP 36.4; O2SAT 98
[2023-03-27] MEDS: hydrOXYzine HCL 25 MG TABLET PO (18:54)
[2023-03-27] MEDS: Temazepam 15 MG CAPSULE 30 MG PO (22:58)
[2023-03-27] MEDS: traZODone HCL 25 MG HALFTAB 75 MG PO (22:58)
[2023-03-28] MEDS: Venlafaxine HCl ER 75 MG CAP.ER.24H PO (08:46)
[2023-03-28] MEDS: lamoTRIgine 25 MG TABLET PO (08:46)
[2023-03-28 08:55] VITALS: BP 121/64; PULSE 77; RESP 18; TEMP 36.4; O2SAT 100
--- NOTE | 2023-03-28 09:53 | HO.PSYCHPN ---
Subjective Subjective Date of Service: 03/28/23 Reason For Visit: SI Interim History: Met with patient; discussed with team Patient continues to feel that he is doing well. Had an unpleasant interaction with a peer but was able to walk away and collect himself and stay calm and in good behavioral and impulse control. Patient feels ready for discharge. Mental Status Exam Mental Status Exam Narrative: Pt is alert and oriented; behavior is cooperative, friendly and calm; patient is not in distress; dressed in casual attire with unkempt hair and scruffy sands but adequate hygiene; mood is described as good and affect congruent; eye contact appropriate; Speech is normal rate, volume and prosody and not pressured; no psychomotor agitation/retardation present; thought process is organized and goal directed, though also circumstantial; Thought content is on tx, future oriented plans; otherwise pertinent to relevant topics and without any delusional content, paranoid ideations or grandiosity; intermittent SI but able to be ignored/no HI. There is no evidence of perceptual disturbance. Patients insight and judgment fair Diagnostics Vital Signs (24Hr): Vital Signs - 24 hr 03/27/23 18:00 03/28/23 08:55 Temperature 97.6 F 97.6 F Pulse Rate 90 77 Respiratory Rate 18 Blood Pressure 130/77 121/64 Pulse Oximetry 98 100 Oxygen Delivery Method Room Air Room Air BMI result Body Mass Index 23.5 Labs 03/19/23 23:48 03/22/23 08:13 Medications Medications Current Medications Acetaminophen (Acetaminophen 325 Mg Tablet) 650 mg PO Q6H PRN PRN Reason: Headache/Pain Mild Scale (1-3) Al Hydroxide/Mg Hydroxide (Magnesium Hydrox/Alum Hydrox 30 Ml Oral.Susp) 30 ml PO Q6H PRN PRN Reason: Heartburn/Nausea Clonidine HCl (Clonidine Hcl 0.1 Mg Tablet) 0.1 mg PO Q4H PRN; Protocol PRN Reason: anxiety Last Admin: 03/27/23 13:59 Dose: 0.1 mg Hydroxyzine HCl (Hydroxyzine Hcl 25 Mg Tablet) 25 mg PO Q6H PRN PRN Reason: Anxiety Last Admin: 03/27/23 18:54 Dose: 25 mg Lamotrigine (Lamotrigine 25 Mg Tablet) 25 mg PO DAILY [facility]AN Last Admin: 03/28/23 08:46 Dose: 25 mg Magnesium Hydroxide (Milk Of Magnesia 30 Ml Oral.Susp) 30 ml PO DAILY PRN PRN Reason: Constipation Temazepam (Temazepam 15 Mg Capsule) 30 mg PO BEDTIME [facility] Last Admin: 03/27/23 22:58 Dose: 30 mg Trazodone HCl (Trazodone Hcl 25 Mg Halftab) 75 mg PO BEDTIME [facility]AN Last Admin: 03/27/23 22:58 Dose: 75 mg Trazodone HCl (Trazodone Hcl 50 Mg Tablet) 50 mg PO BEDTIME PRN PRN Reason: Insomnia Last Admin: 03/24/23 22:46 Dose: 50 mg Venlafaxine HCl (Venlafaxine Hcl Er 75 Mg Cap.Er.24h) 75 mg PO DAILY [facility] Last Admin: 03/28/23 08:46 Dose: 75 mg Venlafaxine HCl (Venlafaxine Hcl Er 37.5 Mg Cap.Er.24h) 37.5 mg PO DAILY [facility] Last Admin: 03/28/23 08:46 Dose: 37.5 mg Allergies Allergies Allergy/AdvReac Type Severity Reaction Status Date / Time peanut [PEANUT] Allergy Severe ANAPHYLAXIS Verified 04/06/21 00:57 Assessment & Plan Assessment & Plan (1) MDD (major depressive disorder), recurrent episode, severe: Status: Acute Code(s): F33.2 - Major depressive disorder, recurrent severe without psychotic features (2) Chronic post-traumatic stress disorder (PTSD): Status: Acute Code(s): F43.12 - Post-traumatic stress disorder, chronic (3) OCD (obsessive compulsive disorder): Status: Acute Code(s): F42.9 - Obsessive-compulsive disorder, unspecified (4) Autism: Status: Acute Code(s): F84.0 - Autistic disorder (5) Bulimia: Status: Acute Code(s): F50.2 - Bulimia nervosa Plan Patient is a 22-year-old male with history of ASD, PTSD, depression, chronic SI and emotional reactivity who presents with SI, feeling emotionally dysregulated due to continued upsetting interactions with mother (Dione), and other psychosocial stressors. -patient meets criteria for OCD in addition to PTSD, depression; patient has diagnosis of ASD with some accompanied symptoms though patient is quite high functioning, makes good eye contact, welcomes touch... Patient also exhibiting borderline traits which are very likely contributory. -patient has not had any adequate medication trials. Will increase venlafaxine since he has tolerated thus far; will also start Lamictal for combination of PTSD, OCD, borderline traits and depression; reviewed risks/side effects with both patient and his mother and they both agree. -Patient reports that he has chronic SI in the form of passive wish but that all active SI has now fully resolved and he is able to ignore the intermittent chronic passive wish thoughts. Allowed to use ear buds 15/04 including during sleep; iPhone and I phone precision devices inspector/tester to be kept at nurse's station; patient can request music changes; cleared with administration Patient explains that he damián with his autism by listening to specific music, almost consistently throughout the day and night. Patient has specific albums on his phone that he listens to to help him cope through specific activities. He says that without it he has a very hard time thinking clearly or even talking with this financial underwriter. Patient's mother Philly corroborates that patient has been utilizing this coping strategy since young childhood and that for his entire life time they have carried around CDs which he listens to near continuously and without, quickly gets emotionally dysregulated. Philly explains that as a part of his IEP in school, he was allowed to use his ear phone/music even while taking tests. She corroborates that Without it patient has a hard time eating and is unable to sleep. HOSPITAL COURSE 03/24/23: Continue current regime and plan of care. 03/25 improving. Social in the milieu. Coping; increasing Effexor; patient reports doing better and no SI. Feels like he will be able to handle upsetting feelings from his mother 03/26: Tolerating med changes. Continue current treatment plan. 03/27 patient remains significantly improved, no SI, no AVH, future oriented and feeling much more stable, hopeful; feels much more able to navigate problematic relationship with 1 of his parent's. Discussing aftercare. Will leave medications as they are for now. 03/28 patient remains stable, intermittent passive SI but patient says it is low level and able to be ignored; remains optimistic and feeling ready for discharge. Patient is not in imminent risk for harm to self or others; he is appropriate to continue treatment in the community and request for discharge honored. PLAN: CV Q 15 minute checks Continue venlafaxine ER to 112.5 mg daily; will likely continue to titrate as patient has OCD and will likely need higher than normal doses continue Lamictal 25 mg daily; discussed risks/side effects with patient and his mother who both understand and would like to proceed with this medication Patient educated on: diagnosis, medication risk/benefits and therapeutic strategies Informed Consent: understands Reason for continued inpatient stay Substantial Risk for: stable for discharge Time Spent With Patient Time: Total time managing care of this patient today ____ minutes.
[2023-03-28 13:05] VITALS: BP 113/62; PULSE 91
[2023-03-28 13:35] VITALS: BP 129/84; PULSE 78
[2023-03-28] MEDS: cloNIDine HCL 0.1 MG TABLET PO ×2 (13:35→19:49)
[2023-03-28 14:51] VITALS: BMI 23.2
[2023-03-28 16:27] VITALS: BP 115/63; PULSE 94; RESP 18; TEMP 36; O2SAT 98
[2023-03-28] MEDS: traZODone HCL 25 MG HALFTAB 75 MG PO (22:36)
[2023-03-28] MEDS: Temazepam 15 MG CAPSULE 30 MG PO (22:36)
--- NOTE | 2023-03-29 07:17 | P.DS_ITS ---
DS: Providers Provider Date of Service: 03/29/23 Date of admission: 03/21/23 17:37 Date of discharge: 03/29/23 Primary care physician: Unknown Physician Attending physician on admission: Rick Goncalves Attending physician on discharge: Rick Goncalves DS: Diagnosis Discharge Diagnosis (1) MDD (major depressive disorder), recurrent episode, severe: Status: Acute (2) Chronic post-traumatic stress disorder (PTSD): Status: Acute (3) OCD (obsessive compulsive disorder): Status: Acute (4) Autism: Status: Acute (5) Bulimia: Status: Acute DS: Medications Discharge Medications Home Medications: Previous Rx's Medication Instructions Recorded clonidine HCl 0.1 mg tablet 0.1 mg PO Q4H PRN anxiety 30 days 03/29/23 #120 tabs hydroxyzine HCl 25 mg tablet 25 mg PO Q6H PRN Anxiety 30 days 03/29/23 #90 tabs lamotrigine 100 mg tablet 100 mg PO DAILY 30 days #30 tabs 03/29/23 (Lamictal) lamotrigine 25 mg tablet See Rx Instructions .Route 03/29/23 .COMPLEX #35 tabs temazepam 15 mg capsule 30 mg PO DAILY PRN sleep 30 days 03/29/23 #60 caps trazodone 50 mg tablet 75 mg PO DAILY PRN insomnia 30 03/29/23 days #45 tabs venlafaxine 37.5 mg 37.5 mg PO DAILY 30 days #30 caps 03/29/23 capsule,extended release 24 hr venlafaxine 75 mg capsule,extended 75 mg PO DAILY 30 days #30 caps 03/29/23 release 24 hr Mental Status Exam Mental Status Exam Narrative: Pt is alert and oriented; behavior is cooperative, friendly and calm; patient is not in distress; dressed in casual attire with unkempt hair and scruffy sands but adequate hygiene; mood is described as good and affect congruent; eye contact appropriate; Speech is normal rate, volume and prosody and not pressured; no psychomotor agitation/retardation present; thought process is organized and goal directed, though also circumstantial; Thought content is on tx, future oriented plans; otherwise pertinent to relevant topics and without any delusional content, paranoid ideations or grandiosity; intermittent SI but able to be ignored/no HI. There is no evidence of perceptual disturbance. Patients insight and judgment fair Data Data Completed and Pending Completed studies during hospitalization [Text1]: 03/22/23 03/22/23 03/22/23 08:13 08:13 08:13 Sodium 141 Potassium 3.8 Chloride 105 Carbon Dioxide 23 Anion Gap 17 BUN 10 Creatinine 1.02 Estim Creat Clear Calc 103.3 Estimated GFR > 60 Fasting Glucose 89 Estimat Average Glucose 91 Hemoglobin A1c % 4.8 Calcium 10.1 Total Bilirubin 1.6 H AST 17 ALT 15 Alkaline Phosphatase 64 Total Protein 8.4 H Albumin 5.0 Triglycerides 106 Cholesterol 178 LDL Cholesterol, Calc 115 HDL Cholesterol 42 Vitamin B12 1454 H Folate 16.1 TSH 1.22 DS: Summary Hospital Course Hospital Course: Patient is a 22-year-old male with history of ASD, PTSD, depression, chronic SI and emotional reactivity who presents with SI, feeling emotionally dysregulated due to continued upsetting interactions with mother (Dione), and other psychosocial stressors.? -patient meets criteria for OCD in addition to PTSD, depression; patient has diagnosis of ASD with some accompanied symptoms though patient is quite high functioning, makes good eye contact, welcomes touch...? Patient also exhibiting borderline traits which are very likely contributory. -patient has not had any adequate medication trials.? Will increase venlafaxine since he has tolerated thus far; will also start Lamictal for combination of PTSD, OCD, borderline traits and depression; reviewed risks/side effects with both patient and his mother and they both agree.? -Patient reports that he has chronic SI in the form of passive wish but that all active SI has now fully resolved and he is able to ignore the intermittent chronic passive wish thoughts. Allowed to use ear buds 15/04 including during sleep;?iPhone and I phone electric frying pan repairer to be kept at nurse's station; patient can request music changes; cleared with administration Patient explains that he damián with his autism by listening to specific music, almost consistently throughout the day and night.? Patient has specific albums on his phone that he listens to to help him cope through specific activities.? He says that without it he has a very hard time thinking clearly or even talking with this medical technical writer.? Patient's mother Philly corroborates that patient has been utilizing this coping strategy since young childhood and that for his entire life time they have carried around CDs which he listens to near continuously and without, quickly gets emotionally dysregulated.? Philly explains that as a part of his IEP in school, he was allowed to use his ear phone/music even while taking tests.? She corroborates that Without it patient has a hard time eating and is unable to sleep. HOSPITAL COURSE Very anxious on admission, agreed to titrating venlafaxine which proved effective. He was also started on Lamictal. SI resolved, with only some chronic intermittent passive SI that was able to be ignored. Mood improved as well as affect which was clearly brighter and more calm. Anxiety significantly decreased and eventually patient did not need ear buds or music all the time, something he typically uses every day all day long.? Feels like he will be able to handle upsetting feelings from his mother. Throughout the admission patient remained in good behavioral and impulse control. He was appropriate with peers and staff and engaged in treatment, attending groups and forthcoming in 1 on 1 sessions. His symptoms remained significantly improved, no SI, no AVH, future oriented and feeling much more stable, hopeful; feels much more able to navigate problematic relationship with 1 of his parent's.? Discussing aftercare.? Will leave medications as they are for now. Patient optimistic and feeling ready for discharge.? Patient is not in imminent risk for harm to self or others; he is appropriate to continue treatment in the community and request for discharge honored. Time spent discussing smoking cessation with patient: 3 to 10 minutes Status at Discharge Functional status at discharge: independent ambulation Overall status at discharge: patient is back to baseline Time Spent with Patient Time attestation: Total time managing care of this patient today ____ minutes. Time spent: Less than 30 minutes Discharge Plan Discharge Anticipated Discharge Date/Time: 03/29/23 11:30 Patient Disposition: Home, Self-Care Discharge Diagnosis: OCD, ASD Referrals: Medication Management [facility] [Other] - 04/25/23 9:30 am (Texting Amber is best, calling secondary preference. Per Александр's request, Philly's contact information will also be given to Amber.) Therapy with Timoteo Duarte [Other] - 04/10/23 12:00 pm [facility] [place] [facility] Partial Hospitalization Program [Other] - 04/23/23 8:00 am (Parking lot C in the Behavioral Health Building. You are also on the cancellation wait-list - please be advised you will receive short notice for an appointment. Per Александр's request Philly's contact information has been included for contact.) [facility] [Other] (Walk in if needed) Discharge Medications: New clonidine HCl 0.1 mg Tablet 0.1 mg PO Q4H PRN (Reason: anxiety) 30 Days Qty: 120 2RF Protocol: Hold for SBP< HOLD for SBP < : 90 venlafaxine 75 mg Capsule,Extended Release 24hr 75 mg PO DAILY 30 Days Qty: 30 2RF Rx Instructions: take with 37.5mg capsule hydroxyzine HCl 25 mg Tablet 25 mg PO Q6H PRN (Reason: Anxiety) 30 Days Qty: 90 2RF venlafaxine 37.5 mg Capsule,Extended Release 24hr 37.5 mg PO DAILY 30 Days Qty: 30 2RF Rx Instructions: take with 75mg capsule lamotrigine 25 mg Tablet See Rx Instructions .ROUTE .COMPLEX Qty: 35 0RF Rx Instructions: take 1 tab daily for 7 days; then take 2 tabs daily for 14 days lamotrigine [Lamictal] 100 mg tablet 100 mg PO DAILY 30 Days Qty: 30 1RF Rx Instructions: take daily AFTER completed 2 weeks of 50mg Changed trazodone 50 mg tablet 75 mg PO DAILY PRN (Reason: insomnia) 30 Days Qty: 45 2RF temazepam 15 mg capsule 30 mg PO DAILY PRN (Reason: sleep) 30 Days Qty: 60 1RF Discontinued venlafaxine 37.5 mg capsule,extended release 24hr 37.5 mg PO DAILY cetirizine [Zyrtec] 10 mg Tablet 10 mg PO BEDTIME Discharge Orders: Discharge Order (Routine); Ordered 03/29/23 Ordered By: Rick Goncalves Diet: Regular diet Activity on Discharge: As tolerated Stand Alone Forms: Patient Portal Discharge page, Community Support Care Plan Goals: Maintain mood and safe behaviors Take medications as prescribed Practice coping skills Continue with outpatient providers and reach out to them as needed Health Concerns: Mood stability and behaviors Plan of Treatment: Follow up with your PCP, psychiatric provider and other outpatient providers regarding above concerns Take medications as prescribed Assessment: Risk assessment at time of discharge:? Patient was interviewed prior to discharge and found to be fully oriented and without any SI or HI. Patient has insight and demonstrates good judgment in terms of wanting to pursue treatment. Patient is not in imminent risk of harm to self or others and has a safety plan that includes presenting to the closest ER or calling 911 if feeling unsafe.? Patient has been observed closely by nursing and unit staff throughout admission; patient has not engaged in any behaviors that suggest dangerousness to self or others and has demonstrated appropriate behaviors and impulse control Discharge Date/Time: 03/29/23 11:43
[2023-03-29 08:19] VITALS: BP 124/70; PULSE 72; RESP 16; TEMP 36.6; O2SAT 100
[2023-03-29] MEDS: Venlafaxine HCl ER 75 MG CAP.ER.24H PO (09:02)
[2023-03-29] MEDS: lamoTRIgine 25 MG TABLET PO (09:02)
== END 2023-03-29 11:43 | disposition home or self-care (01) | DRG 751 ==
LOC: HO.ED 03-20 06:29 → HO.PM5 03-21 17:51
PROVIDERS: Admitting Provider Social Worker; Emergency Provider Internal Medicine; Visit Provider Psychiatry & Neurology Psychiatry
DX: F33.2 Major depressive disorder, recurrent severe without psychotic features (principal); F50.2 Bulimia nervosa; R45.851 Suicidal ideations; F84.0 Autistic disorder; F43.12 Post-traumatic stress disorder, chronic; F42.9 Obsessive-compulsive disorder, unspecified; Z68.23 Body mass index [BMI] 23.0-23.9, adult; Z79.899 Other long term (current) drug therapy
CPT/HCPCS: 36415; 80053; 80061; 80307; 81003; 82607; 82746; 83036; 84443; 85025; 87635; 99285; S9485

== ENCOUNTER → 2023-03-21 17:37 | Outpatient (BNV) | payer OTHER, SELFPAY | PROVIDERS: Admitting Provider Social Worker; Emergency Provider Internal Medicine; Visit Provider Psychiatry & Neurology Psychiatry | DX: F33.2 Major depressive disorder, recurrent severe without psychotic features (principal); F43.12 Post-traumatic stress disorder, chronic; F42.9 Obsessive-compulsive disorder, unspecified; F84.0 Autistic disorder; F50.2 Bulimia nervosa | CPT/HCPCS: 90792; 99231; 99232; 99238 ==

== ENCOUNTER → 2023-04-16 08:00 | Outpatient (BNV) | payer OTHER, SELFPAY | PROVIDERS: Visit Provider Psychiatry & Neurology Psychiatry | DX: F50.2 Bulimia nervosa (principal); F42.9 Obsessive-compulsive disorder, unspecified; F43.12 Post-traumatic stress disorder, chronic; F33.2 Major depressive disorder, recurrent severe without psychotic features; F84.0 Autistic disorder | CPT/HCPCS: 90792 ==

== ENCOUNTER 2023-04-20 18:52 | Emergency (ER) | payer OTHER, SELFPAY ==
--- NOTE | ~2023-04-20 | CT_ITS ---
EXAMINATION: CT ABDOMEN AND PELVIS WITH CONTRAST CLINICAL INFORMATION: Right lower quadrant pain, rule out acute appendicitis COMPARISON: None available. TECHNIQUE: Multidetector volumetric images were obtained from the superior aspect of the liver through the pubic symphysis following administration 85 mL of Omnipaque 350 intravenous contrast. Sagittal and coronal reformatted images were obtained on the technologist's workstation. Oral contrast: No This CT examination was performed using dose optimization techniques as appropriate, variously including the following: *Automated exposure control *Adjustment of mA and/or kV according to patient size (this includes techniques or standardized protocols for targeted exams where dose is matched to indication/reason for exam; i.e. extremities or head) *Use of iterative reconstruction technique DLP: 396 mGy-cm FINDINGS: LUNG BASES: The visualized lung bases are unremarkable. LIVER, GALLBLADDER, AND BILIARY TREE: The liver is normal in size, shape, and attenuation. No focal hepatic lesion or biliary ductal dilatation is present. The gallbladder is unremarkable with no evidence of radiopaque gallstones, gallbladder wall thickening, or obvious pericholecystic inflammatory changes. PANCREAS: Unremarkable. SPLEEN: Unremarkable. ADRENAL GLANDS: Unremarkable. KIDNEYS AND URETERS: Bilateral nephrograms are symmetric. No hydronephrosis or obstructing calculus identified. A few tiny subcentimeter hypodensities bilaterally favor cysts; no follow-up recommended. BLADDER: Unremarkable. GASTROINTESTINAL TRACT: No evidence of bowel obstruction or significant wall thickening. The appendix is unremarkable. No free fluid or free air is seen. ABDOMINAL WALL: No significant hernia is appreciated. LYMPH NODES: Normal. VASCULAR: Unremarkable. PELVIC VISCERA: Unremarkable. OSSEOUS STRUCTURES: Unremarkable. CT/CT abdomen pelvis w IV con IMPRESSION: No acute findings identified in the abdomen/pelvis. Normal appendix.
--- NOTE | 2023-04-20 19:18 | ED.GENADULT ---
HPI - General Adult General Chief complaint: Abdominal Pain Stated complaint: right lower abd pain Time Seen by Provider: 04/20/23 20:29 Source: patient Mode of arrival: ambulatory Limitations: no limitations History of Present Illness HPI narrative: 22 yo male with history of depression, OCD, PTSD, autism, bulimia here with complaints of 2 hrs of right lower abdominal pain. No nausea, vomiting, diarrhea, constipation, urinary symptoms, fevers, chills. Last BM today. Patient also concerned because he has been unable to maintain an erection x 2 weeks. He tells me he violently masturbates and has been trying to masturbate but has been unable to maintain an erection. States I might have overdone it as I am a little sore. No testicular pain, penile discharge. No new sexual partners. Feels his inability to maintain an erection may be related to this abdominal pain. Related Data Previous Rx's Medication Instructions Recorded clonidine HCl 0.1 mg tablet 0.1 mg PO Q4H PRN anxiety 30 days 03/29/23 #120 tabs hydroxyzine HCl 25 mg tablet 25 mg PO Q6H PRN Anxiety 30 days 03/29/23 #90 tabs lamotrigine 100 mg tablet 100 mg PO DAILY 30 days #30 tabs 03/29/23 (Lamictal) lamotrigine 25 mg tablet See Rx Instructions .Route 03/29/23 .COMPLEX #35 tabs temazepam 15 mg capsule 30 mg PO DAILY PRN sleep 30 days 03/29/23 #60 caps trazodone 50 mg tablet 75 mg PO DAILY PRN insomnia 30 03/29/23 days #45 tabs venlafaxine 37.5 mg 37.5 mg PO DAILY 30 days #30 caps 03/29/23 capsule,extended release 24 hr venlafaxine 75 mg capsule,extended 75 mg PO DAILY 30 days #30 caps 03/29/23 release 24 hr Allergies Allergy/AdvReac Type Severity Reaction Status Date / Time peanut [PEANUT] Allergy Severe ANAPHYLAXIS Verified 04/20/23 19:18 Review of Systems Review of Systems: Yes all other systems are reviewed and are negative Constitutional: Constitutional: Reports no additional constitutional complaints, Denies body ache(s), Denies chills, Denies fever(s), Denies headache(s) and Denies weakness Eyes: Eyes: Reports no additional eye complaints and Denies change in vision ENT: Reports system reviewed and no additional complaints, except as documented, Denies dizziness, Denies headache(s), Denies nasal congestion, Denies nasal discharge and Denies neck pain Cardiovascular: Cardiovascular: Reports no additional cardiovascular complaints, Denies chest pain, Denies leg edema and Denies dyspnea Respiratory: Respiratory: Reports no additional respiratory complaints, Denies cough and Denies dyspnea Gastrointestinal: Gastrointestinal: Reports no additional gastrointestinal complaints, Reports abdominal pain, Denies constipation, Denies diarrhea, Denies nausea and Denies vomiting Genitourinary: Genitourinary: Denies urinary incontinence Musculoskeletal: Musculoskeletal: Reports no additional musculoskeletal complaints, Denies back pain, Denies arthralgias, Denies joint swelling, Denies neck pain, Denies numbness and Denies tingling Integumentary/Breasts: Skin/Breast: Reports system reviewed and no additional complaints, except as docu and Denies rash Neurologic: Reports system reviewed and no additional complaints, except as documented, Denies dizziness, Denies headache(s), Denies numbness, Denies tingling and Denies weakness PMFSH Past Medical History Attestation statement: The following information was validated with the patient. Source: old records reviewed and nursing notes reviewed Medical History Autism Bulimia Chronic post-traumatic stress disorder (PTSD) Depression Hypospadias Infected dog bite of face MDD (major depressive disorder), recurrent episode, severe OCD (obsessive compulsive disorder) Surgical History History of tonsillectomy Social History Social History Household Members: Family Housing: House Do you presently have visiting nurse or other home services: No Alcohol intake: former Patient Tobacco Use Status: Never used Tobacco Smoked in Last 30 Days: No Second Hand Smoke Exposure: No Use of substances other than those prescribed or required for medical reasons: No Substance Use Type: Marijuana Advance Directives: No Advance Directives Information Provided: No service: No Sexual orientation: Straight/Heterosexual Physical Exam ED Vital Signs: Vital Signs - 24 hr 04/20/23 19:19 04/20/23 19:52 Temperature 97.6 F 98.3 F Pulse Rate 104 H 80 Respiratory Rate 18 16 Blood Pressure 130/87 143/87 H Pulse Oximetry 96 96 Oxygen Delivery Method Room Air Room Air BMI result Body Mass Index 23.3 Const General: cooperative, healthy appearing, comfortable and no acute distress Orientation/consciousness: patient oriented x3 Limitations: no limitations HENMT Head: Yes normal to inspection Ears: hearing grossly normal bilaterally Eyes General: appearance normal, both eyes and all related structures Pupils: Equal, round and reactive pupils present Neck Neck: Yes normal visual inspection and Yes full ROM Chest Chest palpation & inspection: normal inspection of the chest Resp Effort & Inspection: normal respiratory effort Auscultation: clear to auscultation bilaterally Cardio Rate: regular rate Rhythm: regular rhythm Peripheral pulses: Peripheral pulses 2+ throughout GI Inspection: Yes normal to inspection Palpation (GI): Soft to palpation, Tenderness to palpation present (GI) in the RLQ; with no rebound tenderness and no guarding Auscultation: normal bowel sounds 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: 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 General: Yes no CVA tenderness Male General Exam: Yes normal external exam Penis: normal penis Meatus: meatus normal Scrotum: scrotum normal Testes: Testes normal Back/Spine/Pelvis Back: no CVA tenderness Thoracic/Lumbar Spine: thoracic and lumbar spine normal to inspection Skin General skin exam: no rashes or lesions noted Neuro General: patient oriented x3 and moves all extremities Cranial nerves: Yes Equal, round and reactive pupils present Cognition (Neuro): normal cognition Gait exam (Neuro): Normal gait present Extrem General: Yes normal to inspection Course Course Course Narrative: This is a rapid medical exam: Additional HPI, ROS, PE not included below will be deferred to primary provider. Patient is a 22-year-old male with history of autism, MDD, PTSD, OCD, and bulemia presenting to the emergency department with complaint of acute lower abdominal pain 1-2 hours ago. Nausea which has since resolved. Denies vomiting, diarrhea, or constipation. Denies fevers. Denies urinary symptoms. Abdomen soft, nontender. Patient slightly tachycardic in triage, afebrile, appears anxious. Plan: labs, UA Reevaluation(s) Reevaluation #1: CT shows no acute finding. I did independently visualized the CT scan and the patient has quite a bit of stool specially in the ascending colon. He may have some mild constipation. Recommend follow regimen, increasing fluids and fiber at home. Reviewed worrisome signs and symptoms of when to return to the emergency room. Comfortable plan for discharge home. Medications Administered Discontinued Medications Generic Name Dose Route Start Last Admin Trade Name Mark Anthony PRN Reason Stop Dose Admin Sodium Chloride 1,000 mls @ 999 mls/hr 04/20/23 21:13 04/20/23 21:31 Ns IV 04/20/23 22:13 999 mls/hr .Q1H1M STA Administration Iohexol 100 ml 04/20/23 22:10 04/20/23 22:11 Iohexol 350 Mg/Ml 100 Ml Infus..Btl IV 04/20/23 22:11 85 ml ONCE ONE Administration Ketorolac Tromethamine 15 mg 04/20/23 21:13 04/20/23 21:30 Ketorolac Tromethamine 15 Mg/Ml Vial IVPUSH 04/20/23 21:14 15 mg ONCE ONE Administration Lorazepam 0.5 mg 04/20/23 21:47 04/20/23 21:52 Lorazepam 2 Mg/Ml Vial IVPUSH 04/20/23 21:48 0.5 mg STAT STA Administration Medical Decision Making Medical Decision Making MDM Narrative: 22-year-old male with a history of depression, OCD, PTSD presents to the ER with complaints of right lower quadrant abdominal pain which began today with no complaints of nausea, vomiting, diarrhea, constipation, urinary symptoms, fevers, chills. Patient also complaining of inability to maintain an erection for the last 2 weeks with no complaints of urinary symptoms, penile discharge, testicular pain, rashes or lesions. No new sexual partners or concern for STD. On exam patient tenderness of right lower quadrant no rebound or guarding. Normal bowel sounds. Normal exam. Will check labs, UA, CT Will provide analgesia Differential Diagnosis Differential Diagnoses: The differential diagnosis associated with the presentation includes appendicitis, renal colic, UTI low concern for testicular torsion based on clinical exam, STI-low concern no new sexual partners Lab Data MDM Lab Attestation statement: I reviewed the patient's lab results. I reviewed labs which show mild acidosis w/ elavated anion gap which may be secondary to history of bulimia/purging 04/20/23 19:31 04/20/23 19:31 Labs: Lab Results 07/04/20/23 04/21/23 Range/Units 19:31 19:31 00:27 WBC 10.0 (4.8-10.8) X10*3/uL RBC 5.33 (4.60-5.80) X10*6/uL Hgb 16.8 (14.0-18.0) g/dl Hct 47.3 (42.0-52.0) % MCV 88.7 (80.0-98.0) fL MCH 31.5 (27.0-33.0) pg MCHC 35.5 (31.0-36.0) g/dl RDW 11.6 (11.0-16.0) % Plt Count 343 (160-400) X10*3/uL MPV 9.7 (9.4-12.4) fL Immature Gran % (Auto) 0.3 (0.0-0.4) % Neut % (Auto) 71.4 (45-73) % Lymph % (Auto) 19.7 L (20-40) % [place] % (Auto) 7.8 (2-11) % Eos % (Auto) 0.4 (0-4) % Baso % (Auto) 0.4 (0-2) % Lymph # (Auto) 2.0 (1.2-4.9) X10*3/uL [place] # (Auto) 0.8 (0.1-1.2) X10*3/uL Eos # (Auto) 0.0 (0.0-0.4) X10*3/uL Baso # (Auto) 0.0 (0.0-0.2) X10*3/uL Abs Immat Gran (auto) 0.03 (0.00-0.03) X10*3/uL Absolute Neuts (auto) 7.1 (2.0-8.3) x10*3/uL Absolute Nucleated RBC 0.000 (0.0-0.012) X10*3/uL Nucleated RBC % (auto) 0.0 (0.0-0.2) /100WBC Sodium 141 (135-145) mmol/L Potassium 3.6 (3.3-5.1) mmol/L Chloride 107 (96-108) mmol/L Carbon Dioxide 17 L (22-29) mmol/L Anion Gap 21 H (12-20) BUN 9 (9-16) mg/dL Creatinine 0.95 (0.5-1.4) mg/dL Estim Creat Clear Calc 110.9 Estimated GFR > 60 Random Glucose 137 H (60-115) mg/dL Calcium 10.4 H (8.4-10.2) mg/dL Total Bilirubin 0.7 (0.0-1.0) mg/dL AST 18 (5-37) U/L ALT 17 (0-40) U/L Alkaline Phosphatase 79 (39-117) U/L Total Protein 8.7 H (6.5-8.0) g/dL Albumin 5.2 H (3.5-5.0) g/dL Lipase 22 (8-78) U/L Urine Color Yellow Urine Appearance Clear Urine pH >= 9.0 (5.0-9.0) Ur Specific [place] >= 1.030 H (1.005-1.025) Urine Protein 30 (1+) H (Neg-Trace) mg/dL Urine Glucose (UA) Negative (Negative) mg/dL Urine Ketones Negative (Negative) mg/dL Urine Blood Negative (Negative) Urine Nitrite Negative (Negative) Ur Leukocyte Esterase Negative (Negative) Independent Interpretation I performed an independent interpretation of an: CT Scan Interpretation: I independently reviewed the CT scan of the abdomen/pelvis and agree with the rad report. Radiology Impression Discussion of test interpretation with radiology: I have reviewed the radiologist's reading. Radiologist Impression: [place] [id number] CT Scan Report Signed Patient: Александр Molina MR#: [id number] : 2000 Acct:[id number] Age/Sex: 22 / M ADM Date: 04/20/23 Loc: HO.ED Attending Dr: Ordering Physician: Lilibeth Davis NP Date of Service: 04/20/23 Procedure(s): CT abdomen pelvis w IV con Accession Number(s): [id number] cc: Lilibeth Davis NP~ EXAMINATION: CT ABDOMEN AND PELVIS WITH CONTRAST? CLINICAL INFORMATION: Right lower quadrant pain, rule out acute appendicitis? COMPARISON: None available. TECHNIQUE: Multidetector volumetric images were obtained from the superior aspect of the liver through the pubic symphysis following administration 85 mL of Omnipaque 350 intravenous contrast. Sagittal and coronal reformatted images were obtained on the technologist's workstation.? Oral contrast: No This CT examination was performed using dose optimization techniques as appropriate, variously including the following: *Automated exposure control *Adjustment of mA and/or kV according to patient size (this includes techniques or standardized protocols for targeted exams where dose is matched to indication/reason for exam; i.e. extremities or head) *Use of iterative reconstruction technique DLP: 396 mGy-cm FINDINGS: LUNG BASES: The visualized lung bases are unremarkable.? LIVER, GALLBLADDER, AND BILIARY TREE: The liver is normal in size, shape, and attenuation. No focal hepatic lesion or biliary ductal dilatation is present. The gallbladder is unremarkable with no evidence of radiopaque gallstones, gallbladder wall thickening, or obvious pericholecystic inflammatory changes.? PANCREAS: Unremarkable.? SPLEEN: Unremarkable.? ADRENAL GLANDS: Unremarkable.? KIDNEYS AND URETERS: Bilateral nephrograms are symmetric. No hydronephrosis or obstructing calculus identified. A few tiny subcentimeter hypodensities bilaterally favor cysts; no follow-up recommended. BLADDER: Unremarkable.? GASTROINTESTINAL TRACT: No evidence of bowel obstruction or significant wall thickening. The appendix is unremarkable. No free fluid or free air is seen.? ABDOMINAL WALL: No significant hernia is appreciated.? LYMPH NODES: Normal. VASCULAR: Unremarkable. PELVIC VISCERA: Unremarkable.? OSSEOUS STRUCTURES: Unremarkable.? CT/CT abdomen pelvis w IV con IMPRESSION: No acute findings identified in the abdomen/pelvis. Normal appendix. ? Discharge Plan Discharge Clinical Impression: Abdominal pain Patient Disposition: Still a Patient Instructions: Abdominal Pain (ED) Additional Instructions: Your labwork and urine testing is normal Your CT scan shows no evidence of appendicitis. You do have quite a bit of stool on CT scan so please increase fluids and fiber in the diet. Consider adding a stool softener and miralax for the next few days. Return for any worsening symptoms Prescriptions: No Action clonidine HCl 0.1 mg Tablet 0.1 mg PO Q4H PRN (Reason: anxiety) 30 Days Qty: 120 2RF Protocol: Hold for SBP< HOLD for SBP < : 90 venlafaxine 75 mg Capsule,Extended Release 24hr 75 mg PO DAILY 30 Days Qty: 30 2RF Rx Instructions: take with 37.5mg capsule hydroxyzine HCl 25 mg Tablet 25 mg PO Q6H PRN (Reason: Anxiety) 30 Days Qty: 90 2RF venlafaxine 37.5 mg Capsule,Extended Release 24hr 37.5 mg PO DAILY 30 Days Qty: 30 2RF Rx Instructions: take with 75mg capsule trazodone 50 mg tablet 75 mg PO DAILY PRN (Reason: insomnia) 30 Days Qty: 45 2RF temazepam 15 mg capsule 30 mg PO DAILY PRN (Reason: sleep) 30 Days Qty: 60 1RF lamotrigine 25 mg Tablet See Rx Instructions .ROUTE .COMPLEX Qty: 35 0RF Rx Instructions: take 1 tab daily for 7 days; then take 2 tabs daily for 14 days lamotrigine [Lamictal] 100 mg tablet 100 mg PO DAILY 30 Days Qty: 30 1RF Rx Instructions: take daily AFTER completed 2 weeks of 50mg Referrals: Physician,None [Primary Care Provider] - 1 week
[2023-04-20 19:19] VITALS: BP 130/87; PULSE 104; RESP 18; TEMP 36.4; O2SAT 96; BMI 23.3
[2023-04-20 19:35] LABS: MANUAL DIFF FLAG NO
[2023-04-20 19:40] LABS: Basophils Percent Auto 0.4 % (0-2); Eosinophils Percent Auto 0.4 % (0-4); Hematocrit 47.3 % (42.0-52.0); Hemoglobin 16.8 g/dl (14.0-18.0); Imm Gran Abs Auto 0.03 X10*3/uL (0.00-0.03); Imm Gran Pct Auto 0.3 % (0.0-0.4); Lymphocytes Percent Auto 19.7 % (20-40); Mean Corpuscular HGB Conc 35.5 g/dl (31.0-36.0); Mean Corpuscular Hemoglobin 31.5 pg (27.0-33.0); Mean Corpuscular Volume 88.7 fL (80.0-98.0); Mean Platelet Volume 9.7 fL (9.4-12.4); Monocytes Absolute Auto 0.8 X10*3/uL (0.1-1.2); Monocytes Percent Auto 7.8 % (2-11); Neutrophils Absolute Auto 7.1 x10*3/uL (2.0-8.3); Neutrophils Percent Auto 71.4 % (45-73); Platelet Count 343 X10*3/uL (160-400); Red Blood Count 5.33 X10*6/uL (4.60-5.80); Red Cell Distribution Width 11.6 % (11.0-16.0)
[2023-04-20 19:52] VITALS: BP 143/87; PULSE 80; RESP 16; TEMP 36.8; O2SAT 96
[2023-04-20 20:08] LABS: Alanine Aminotransferase 17 U/L (0-40); Albumin Level 5.2 g/dL (3.5-5.0); Alkaline Phosphatase 79 U/L (39-117); Anion Gap 21 (12-20); Aspartate Amino Transferase 18 U/L (5-37); Bilirubin Total 0.7 mg/dL (0.0-1.0); Blood Urea Nitrogen 9 mg/dL (9-16); Calcium 10.4 mg/dL (8.4-10.2); Carbon Dioxide 17 mmol/L (22-29); Chloride 107 mmol/L (96-108); Creatinine Clr Calc Pharmacy 110.9; Estimated Glomerular Filt Rate > 60; Glucose Random 137 mg/dL (60-115); Lipase 22 U/L (8-78); Potassium 3.6 mmol/L (3.3-5.1); Sodium 141 mmol/L (135-145); Total Protein 8.7 g/dL (6.5-8.0)
[2023-04-20] MEDS: Ketorolac Tromethamine 15 MG/ML VIAL IVPUSH (21:30)
[2023-04-20] MEDS: 0.9 % Sodium Chloride 1,000 ML 999 ML IV (21:31)
[2023-04-20] MEDS: LORazepam 2 MG/ML VIAL 0.5 MG IVPUSH (21:52)
[2023-04-20] MEDS: iohexoL 350 MG/ML 100 ML INFUS..BTL IV (22:11)
[2023-04-21 00:53] LABS: Appearance Urine Clear; Color Urine Yellow; Glucose Urine UA Negative (Negative); Leukocyte Esterase Urine Negative (Negative); Nitrite Urine Negative (Negative); PH >= 9.0 (5.0-9.0); Specific Gravity - Urine >= 1.030 (1.005-1.025); UMIC TRIGGER UACC YES; Urine Blood Negative (Negative); Urine Ketones Negative (Negative); Urine Protein 30 (1+) mg/dL (Neg-Trace)
[2023-04-21 00:58] LABS: Bacteria Urine None Seen (None Seen); Hyaline Casts Urine 0-2 /LPF (0-2); RBC Urine 0-2 /HPF (0-2); Squamous Epithelial Cell Urine 0-2 /HPF (0-2); WBC Urine 0-5 /HPF (0-5)
== END 2023-04-21 01:25 | disposition home or self-care (01) ==
PROVIDERS: Registered Nurse Emergency; Emergency Provider Emergency Medicine Emergency Medical Services
DX: R10.31 Right lower quadrant pain (principal); F41.9 Anxiety disorder, unspecified; F84.0 Autistic disorder; Z79.899 Other long term (current) drug therapy
CPT/HCPCS: 36415; 74177; 80053; 81001; 83690; 85025; 96361; 96374; 96375; 99284; J1885; J2060; Q9967

== ENCOUNTER 2023-04-24 14:21 | Outpatient (AMB) | payer OTHER, SELFPAY ==
--- NOTE | 2023-04-24 14:22 | MHC.OFFWIV ---
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 Patient believes he has a penile fracture. He is not sexually active for the last 2 years. Heterosexual. Patient masturbates regularly and up to 5 times a day. In the past month patient reports he is having difficulty with maintaining erections. His erections are not that strong. He is receiving treatment for mental health. Recently Lamictal and clonidine has been added to the regimen. [facility] Medical History Autism Bulimia Chronic post-traumatic stress disorder (PTSD) Depression Hypospadias Infected dog bite of face MDD (major depressive disorder), recurrent episode, severe OCD (obsessive compulsive disorder) Surgical History History of tonsillectomy Social History Household Members: Family Housing: House Do you presently have visiting nurse or other home services: No Alcohol intake: former Patient Tobacco Use Status: Never used Tobacco Second Hand Smoke Exposure: No Substance Use Type: Marijuana service: No Sexual orientation: Straight/Heterosexual Physical Exam Vital Signs: Last Vital Signs Pulse 97 04/24/23 14:33 BP 102/70 04/24/23 14:33 Pulse Ox 100 04/24/23 14:33 Oxygen Delivery Method Room Air 04/24/23 14:33 Other: Genital area: Penis appears normal. Testicles are normal. Epididymis is nontender. Assessment & Plan Assessment & Plan (1) Erectile dysfunction: Code(s): N52.9 - Male erectile dysfunction, unspecified Plan: Patient was reassured that he has no penile fracture. The mental health medications may be causing his erectile dysfunction. I encouraged him to see his mental health counselor and psychiatrist and discuss the problem with them. 20 minutes was spent in counseling the patient. Coding Level of Care Code New Pt Level 3 (52676) Diagnoses Erectile dysfunction N52.9
[2023-04-24 14:33] VITALS: BP 102/70; PULSE 97; O2SAT 100
== END 2023-04-24 15:06 | disposition home or self-care (01) ==
LOC: HO.HMGWI 14:21
PROVIDERS: Visit Provider Internal Medicine
DX: N52.9 Male erectile dysfunction, unspecified (principal)
CPT/HCPCS: 99203

== ENCOUNTER 2023-04-29 08:00 | Outpatient (RCR) | payer OTHER, SELFPAY ==
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
[2023-04-16 12:45] VITALS: BP 99/84; PULSE 69; RESP 14; TEMP 36.9
--- NOTE | 2023-04-16 15:16 | PC.ADMIT ---
22 year old single male admitted to [facility] on 04/16/23 as a step down after a inpatient stay at [facility]. Diagnosis include: MDD, PTSD, OCD, Autistic disorder, Bulimia Nervosa. Per hospital record patient was feeling emotionally dysregulated due to upsetting relationship with his mother (Dione). Patient lives at home with his two mothers. Patient was brought to the ED because of self harm (cutting) and his report of wanting to end his life. Today patient states SI but clearly states no plan or intent. Patient states he is more able to use his coping skills. Patient is alert and oriented, mood stable. Please note patient is allowed to use ear buds 15/04, patient reports he deals with his autism by listening to music. All medications reconciled with patient and pharmacy. Copy of Safety plan given to patient. Notification of admission to [facility] faxed to out patient provider. Nursing admission assessment completed and charted.
[2023-04-16 16:47] VITALS: BMI 22.3
--- NOTE | 2023-04-18 15:57 | HO.PHP ---
Clients case was reviewed and opened today in treatment team.
--- NOTE | 2023-04-19 11:35 | HO.PHP ---
[facility] staff met with Александр after group two. Александр informed the clinician that he would like to find more tools to utilize to help with expressing himself in group. Александр disclosed that he feels like he does well in a one on one setting but in a group setting he doesn't know how to communicate. [facility] staff provided ways to support Александр by giving him cues in group and encouraged him to write down one thing he would like to talk about in group for the day. Александр was receptive. [facility] staff also encouraged Александр to focus on the here and now and not to dig too deep into past situations, due to that being more for him and his individual therapist. Александр was receptive.
--- NOTE | 2023-04-19 14:41 | HO.PHP ---
[facility] staff followed up with Александр after the third group, since he had made a comment around SI with Intent. Александр mentioned that he has intent. PHP staff asked for clarification by exploring if he has a plan. Александр mentioned he does not have a plan. PHP staff assessed for safety. Александр reported that he is safe and mentioned that he has no plans to act on anything over the weekend and will be here Saturday. Александр disclosed that he is more so struggling with the thoughts of SI at the moment. Александр mentioned he is going to work on writing by changing those distorted thoughts into rational thoughts. Александр presented with no concerns around harming himself.
--- NOTE | 2023-04-22 12:28 | HO.PHP ---
[facility] staff followed up with Александр regarding his comment in the first group around not feeling the program is a good fit. Александр mentioned that he is feeling okay now that he had opened up. Александр talked about the challenges he has with reading others and feeling comfortable enough to open up. Александр disclosed that he would like to still continue in the program and felt more comfortable today, with being in a smaller group and feeling heard. [facility] staff was receptive and encouraged Александр if at any point he does not feel this is a good fit, to inform staff members. Александр was receptive.
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
== END 2023-04-29 23:59 | disposition home or self-care (01) ==
LOC: HO.PHPA 08:00
PROVIDERS: Visit Provider Psychiatry & Neurology Psychiatry
DX: F33.2 Major depressive disorder, recurrent severe without psychotic features (principal); F43.12 Post-traumatic stress disorder, chronic; F50.2 Bulimia nervosa; F42.9 Obsessive-compulsive disorder, unspecified; F84.0 Autistic disorder; Z79.899 Other long term (current) drug therapy
CPT/HCPCS: 90791; 90853

== ENCOUNTER 2023-07-24 19:12 | Emergency (ER) | payer OTHER, SELFPAY ==
[2023-07-24 19:28] VITALS: BP 146/94; PULSE 119; RESP 20; TEMP 37.6; O2SAT 95; BMI 23.7
--- NOTE | 2023-07-24 19:59 | ECG_ITS ---
Test Reason : medical clearance Blood Pressure : / mmHG Vent. Rate : 095 BPM Atrial Rate : 095 BPM P-R Int : 144 ms QRS Dur : 094 ms QT Int : 336 ms P-R-T Axes : 056 070 051 degrees QTc Int : 422 ms Normal sinus rhythm Normal ECG No previous ECGs available Referred By: Generic ED Physician Electronically Signed By:SUKH GARCIA MD
[2023-07-24 20:30] LABS: MANUAL DIFF FLAG NO
[2023-07-24 20:32] LABS: Basophils Absolute Auto 0.1 X10*3/uL (0.0-0.2); Basophils Percent Auto 0.3 % (0-2); Eosinophils Percent Auto 0.2 % (0-4); Hematocrit 46.7 % (42.0-52.0); Hemoglobin 16.4 g/dl (14.0-18.0); Imm Gran Abs Auto 0.32 X10*3/uL (0.00-0.03); Imm Gran Pct Auto 1.7 % (0.0-0.4); Lymphocytes Absolute Auto 2.2 X10*3/uL (1.2-4.9); Lymphocytes Percent Auto 11.5 % (20-40); Mean Corpuscular HGB Conc 35.1 g/dl (31.0-36.0); Mean Corpuscular Hemoglobin 32.2 pg (27.0-33.0); Mean Corpuscular Volume 91.6 fL (80.0-98.0); Mean Platelet Volume 9.5 fL (9.4-12.4); Monocytes Percent Auto 5.5 % (2-11); Neutrophils Absolute Auto 15.2 x10*3/uL (2.0-8.3); Neutrophils Percent Auto 80.8 % (45-73); Platelet Count 349 X10*3/uL (160-400); Red Cell Distribution Width 11.8 % (11.0-16.0); White Blood Count 18.9 X10*3/uL (4.8-10.8)
[2023-07-24 20:34] LABS: Appearance Urine Turbid; Color Urine Dark Yellow; Glucose Urine UA Negative (Negative); Leukocyte Esterase Urine Negative (Negative); Nitrite Urine Negative (Negative); Specific Gravity - Urine 1.025 (1.005-1.025); Urine Blood Negative (Negative); Urine Ketones Negative (Negative); Urine Protein Trace mg/dL (Neg-Trace)
[2023-07-24 20:44] LABS: Alanine Aminotransferase 32 U/L (0-40); Albumin Level 4.7 g/dL (3.5-5.0); Alkaline Phosphatase 77 U/L (39-117); Amphetamine Screen Urine Not Detected (Not Detect); Anion Gap 14 (12-20); Aspartate Amino Transferase 27 U/L (5-37); Barbiturates, Urine Not Detected (Not Detect); Benzodiazepines Screen Urine Not Detected (Not Detect); Bilirubin Total 0.3 mg/dL (0.0-1.0); Blood Urea Nitrogen 14 mg/dL (9-16); Calcium 9.6 mg/dL (8.4-10.2); Cannabinoid Screen Urine POSITIVE (Not Detect); Carbon Dioxide 23 mmol/L (22-29); Chloride 106 mmol/L (96-108); Cocaine Screen Urine Not Detected (Not Detect); Creatinine Clr Calc Pharmacy 137.1; Estimated Glomerular Filt Rate > 60; Fentanyl, urine Not Detected (Not Detect); Glucose Random 98 mg/dL (60-115); Opiate Screen Urine Not Detected (Not Detect); Phencyclidine Screen Urine Not Detected (Not Detect); Sodium 139 mmol/L (135-145); Total Protein 7.9 g/dL (6.5-8.0)
[2023-07-24 20:56] LABS: COVID-19 Test Negative (Negative); IDNOW Serial# BCCEAD1C
--- NOTE | 2023-07-24 21:12 | ED.PSYCH ---
HPI - Psych General Chief Complaint: Psychiatric Symptoms Stated Complaint: crisis eval Time Seen by Provider: 07/24/23 21:00 Source: patient Mode of arrival: ambulatory Limitations: no limitations History of Present Illness HPI Narrative: Comes to the emergency room complaining of chronic suicidal ideation, difficulty coping after an argument with 1 of his parents. According to the patient, when it was at home arguing with 1 of his parents, patient states he was not thinking straight, overwhelmed. States that his parents mean well but sometimes they hurt him on intentionally with thinks that they say. Patient states that he has severe anxiety and depression, 1 of his parents is very understanding while the other 1 gets very frustrated when the patient ?cannot use his words to communicate. Patient states that he has chronic suicidal ideation but never has a plan. 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 Patient states that now that he had time to decompress and has mental clarity, patient states that he has been seen by several therapies, states that he has several tools that help him cope, but when he is extremely stressed, he forgets all about them. Related Data Home Medications Medication Instructions Recorded Confirmed amoxicillin 500 mg capsule 500 mg PO TID 07/24/23 07/24/23 ibuprofen 600 mg tablet 600 mg PO Q6H PRN pain 07/24/23 07/24/23 Previous Rx's Medication Instructions Recorded clonidine HCl 0.1 mg tablet 0.1 mg PO Q4H PRN anxiety 30 days 03/29/23 #120 tabs hydroxyzine HCl 25 mg tablet 25 mg PO Q6H PRN Anxiety 30 days 03/29/23 #90 tabs lamotrigine 100 mg tablet 100 mg PO DAILY 30 days #30 tabs 03/29/23 (Lamictal) lamotrigine 25 mg tablet See Rx Instructions .Route 03/29/23 .COMPLEX #35 tabs temazepam 15 mg capsule 30 mg (2 x 15 mg) PO DAILY PRN 03/29/23 sleep 30 days #60 caps trazodone 50 mg tablet 75 mg (1.5 x 50 mg) PO DAILY PRN 03/29/23 insomnia 30 days #45 tabs venlafaxine 37.5 mg 37.5 mg PO DAILY 30 days #30 caps 03/29/23 capsule,extended release 24 hr venlafaxine 75 mg capsule,extended 75 mg PO DAILY 30 days #30 caps 03/29/23 release 24 hr Allergies Allergy/AdvReac Type Severity Reaction Status Date / Time peanut [PEANUT] Allergy Severe ANAPHYLAXIS Verified 07/24/23 19:27 Review of Systems Review of Systems: Constitutional : No Weight loss, No Fever, No Chills, No Night Sweats, No Fatigue, No Malaise ENT/Mouth : No Hearing loss, No Ear Pain, No Nasal Congestion, No Sinus Pain, No Hoarseness, No sore throat, No Rhinorrhea, No Swallowing Difficulty Eyes: No Eye Pain, No Swelling, No Redness, No Foreign Body, No Discharge, No Vision Changes Cardiovascular : No Chest Pain, No SOB, No Dyspnea on Exertion, No Orthopnea, No Edema, No Palpitations Respiratory : No Cough, No Sputum, No Wheezing, No Smoke Exposure, No Dyspnea Gastrointestinal : No Nausea, No Vomiting, No Diarrhea, No Constipation, No abdominal Pain, No Hematochezia, No Melena Genitourinary : no irregular bleeding, No Dysuria, No Urinary Frequency, No Hematuria, No Urinary Incontinence, No Urgency, No Flank Pain, No Urinary Flow Changes, No Hesitancy Musculoskeletal : No joint pain, No Myalgias, No Joint Swelling Skin : No Skin Lesions, No rash Neuro : No Weakness, No Numbness, No Paresthesias, No Loss of Consciousness, No Dizziness, No Headache Psych : Chronic SI with no plan although no active SI at this time, no HI, feeling overwhelmed and misunderstood by 1 of his parents Heme/Lymph: No Bruising, No Bleeding,No Lymphadenopathy Endocrine : No Polyuria, No Polydipsia, No Temperature Intolerance [facility] Past Medical History Medical History Bulimia Chronic post-traumatic stress disorder (PTSD) MDD (major depressive disorder), recurrent episode, severe Infected dog bite of face Hypospadias OCD (obsessive compulsive disorder) Depression Autism Surgical History History of tonsillectomy Social History Social History Household Members: Family Housing: House Do you presently have visiting nurse or other home services: No Alcohol intake: former Patient Tobacco Use Status: Never used Tobacco Smoked in Last 30 Days: No Second Hand Smoke Exposure: No Use of substances other than those prescribed or required for medical reasons: No Substance Use Type: Marijuana Advance Directives: No Advance Directives Information Provided: No service: No Sexual orientation: Straight/Heterosexual Physical Exam Vital Signs: Vital Signs: Last Vital Signs Temp 99.6 F 07/24/23 19:28 Pulse 119 H 07/24/23 19:28 Resp 20 07/24/23 19:28 BP 146/94 H 07/24/23 19:28 Pulse Ox 95 07/24/23 19:28 O2 Del Method Room Air 07/24/23 19:28 BMI result Body Mass Index 23.7 Const: Other: Appearance: Alert. Oriented X3. No acute distress. Eyes: Pupils equal, round and reactive to light. ENT: Pharynx normal. Neck: Normal inspection. Neck supple. No lymph nodes noted. No crepitus CVS: Normal heart rate and rhythm. Pulses normal. Normal S1 and S2 Respiratory: No respiratory distress. Breath sounds normal. No Wheezing. No rales Abdomen: Soft and nontender. No rigidity. No distention. Skin: Skin warm and dry. Normal skin color. Normal skin turgor. Extremities: No lower extremity edema. No Lacerations. No Rash Neuro: Oriented X 3. No motor deficit. No sensory deficit. Moving all extremities. No slurred speech. CN 2 through 12 grossly intact Psych: calm, cooperative, normal affect Course Course Course Narrative: -care Team consult pending -patient is not suicidal or homicidal, calm, cooperative. At this time, patient is not on a Section 12 -physician observation started at 21:15 Medical Decision Making Medical Decision Making MDM Narrative: My interpretation of labs: Hematology has a white blood cell count of 18.9, patient does not have any signs of infection, no URI or UTI symptoms. Chemistry and urinalysis unremarkable, U tox positive for THC -patient has been calm, cooperative, alert and oriented x3, coherent. Patient states that now that he had his moment of clarity and able to decompress, he is not suicidal, would not act on hurting himself or others, not homicidal. Patient states that he feels mentally well to return home. Patient's other parent who the patient states is understanding, is going to come and pick him up. Patient no longer wants to wait for the care team. -patient is not SI, no HI, not on a Section 12 Differential Diagnosis Differential Diagnoses: The differential diagnosis associated with the presentation includes (Anxiety, depression, anger) Admission/Observation Consideration of admission/observation: Escalation of care including admission/observation considered (Patient will be under observation until care team determines the patient's disposition.) Lab Data 07/24/23 20:22 07/24/23 20:22 Labs: Lab Results 07/24/23 Range/Units 20:22 WBC 18.9 H (4.8-10.8) X10*3/uL RBC 5.10 (4.60-5.80) X10*6/uL Hgb 16.4 (14.0-18.0) g/dl Hct 46.7 (42.0-52.0) % MCV 91.6 (80.0-98.0) fL MCH 32.2 (27.0-33.0) pg MCHC 35.1 (31.0-36.0) g/dl RDW 11.8 (11.0-16.0) % Plt Count 349 (160-400) X10*3/uL MPV 9.5 (9.4-12.4) fL Immature Gran % (Auto) 1.7 H (0.0-0.4) % Neut % (Auto) 80.8 H (45-73) % Lymph % (Auto) 11.5 L (20-40) % [place] % (Auto) 5.5 (2-11) % Eos % (Auto) 0.2 (0-4) % Baso % (Auto) 0.3 (0-2) % Lymph # (Auto) 2.2 (1.2-4.9) X10*3/uL [place] # (Auto) 1.0 (0.1-1.2) X10*3/uL Eos # (Auto) 0.0 (0.0-0.4) X10*3/uL Baso # (Auto) 0.1 (0.0-0.2) X10*3/uL Abs Immat Gran (auto) 0.32 H (0.00-0.03) X10*3/uL Absolute Neuts (auto) 15.2 H (2.0-8.3) x10*3/uL Absolute Nucleated RBC 0.000 (0.0-0.012) X10*3/uL Nucleated RBC % (auto) 0.0 (0.0-0.2) /100WBC Sodium 139 (135-145) mmol/L Potassium 4.0 (3.3-5.1) mmol/L Chloride 106 (96-108) mmol/L Carbon Dioxide 23 (22-29) mmol/L Anion Gap 14 (12-20) BUN 14 (9-16) mg/dL Creatinine 0.79 (0.5-1.4) mg/dL Estim Creat Clear Calc 137.1 Estimated GFR > 60 Random Glucose 98 (60-115) mg/dL Calcium 9.6 D (8.4-10.2) mg/dL Total Bilirubin 0.3 (0.0-1.0) mg/dL AST 27 (5-37) U/L ALT 32 (0-40) U/L Alkaline Phosphatase 77 (39-117) U/L Total Protein 7.9 (6.5-8.0) g/dL Albumin 4.7 (3.5-5.0) g/dL Urine Color Dark Yellow Urine Appearance Turbid Urine pH 8.0 (5.0-9.0) Ur Specific [place] 1.025 (1.005-1.025) Urine Protein Trace (Neg-Trace) mg/dL Urine Glucose (UA) Negative (Negative) mg/dL Urine Ketones Negative (Negative) mg/dL Urine Blood Negative (Negative) Urine Nitrite Negative (Negative) Ur Leukocyte Esterase Negative (Negative) Urine Opiates Screen Not Detected (Not Detect) Urine Fentanyl Screen Not Detected (Not Detect) Ur Barbiturates Screen Not Detected (Not Detect) Ur Phencyclidine Scrn Not Detected (Not Detect) Ur Amphetamines Screen Not Detected (Not Detect) U Benzodiazepines Scrn Not Detected (Not Detect) Urine Cocaine Screen Not Detected (Not Detect) U Marijuana (THC) Screen POSITIVE H (Not Detect) COVID-19 (BENJAMIN) Negative (Negative) COVID-19 Clin Com See Note Discharge Plan Discharge Clinical Impression: Acute anxiety Patient Disposition: Home, Self-Care Instructions: Anxiety (ED) Additional Instructions: Please follow-up with your primary care physician tomorrow. If you have any worsening or new symptoms, please return to the emergency room or call 911 Prescriptions: No Action clonidine HCl 0.1 mg Tablet 0.1 mg PO Q4H PRN (Reason: anxiety) 30 Days Qty: 120 2RF Protocol: Hold for SBP< HOLD for SBP < : 90 venlafaxine 75 mg Capsule,Extended Release 24hr 75 mg PO DAILY 30 Days Qty: 30 2RF Rx Instructions: take with 37.5mg capsule hydroxyzine HCl 25 mg Tablet 25 mg PO Q6H PRN (Reason: Anxiety) 30 Days Qty: 90 2RF venlafaxine 37.5 mg Capsule,Extended Release 24hr 37.5 mg PO DAILY 30 Days Qty: 30 2RF Rx Instructions: take with 75mg capsule trazodone 50 mg tablet 75 mg PO DAILY PRN (Reason: insomnia) 30 Days Qty: 45 2RF temazepam 15 mg capsule 30 mg PO DAILY PRN (Reason: sleep) 30 Days Qty: 60 1RF lamotrigine 25 mg Tablet See Rx Instructions .ROUTE .COMPLEX Qty: 35 0RF Rx Instructions: take 1 tab daily for 7 days; then take 2 tabs daily for 14 days lamotrigine [Lamictal] 100 mg tablet 100 mg PO DAILY 30 Days Qty: 30 1RF Rx Instructions: take daily AFTER completed 2 weeks of 50mg amoxicillin 500 mg capsule 500 mg PO TID ibuprofen 600 mg tablet 600 mg PO Q6H PRN (Reason: pain) Interventions: [place]-Suicide Risk Severity Scale Last Done: 07/24/23 21:41
--- NOTE | 2023-07-24 22:04 | PC.NURSE ---
Med req completed
--- NOTE | 2023-07-24 22:23 | PC.NURSE ---
Pt reports wanting to leave against medical advise as pt is not having any SI at this time and having family providing positive support. notified.
[2023-07-24 23:19] VITALS: BP 135/86; PULSE 105; RESP 12; O2SAT 97
== END 2023-07-24 23:21 | disposition home or self-care (01) ==
PROVIDERS: Emergency Provider Emergency Medicine
DX: F41.9 Anxiety disorder, unspecified (principal); R45.851 Suicidal ideations; Z11.52 Encounter for screening for COVID-19; F33.2 Major depressive disorder, recurrent severe without psychotic features; F42.9 Obsessive-compulsive disorder, unspecified; F43.12 Post-traumatic stress disorder, chronic; F84.0 Autistic disorder; F12.90 Cannabis use, unspecified, uncomplicated; Z79.899 Other long term (current) drug therapy
CPT/HCPCS: 36415; 80053; 80307; 81003; 85025; 87635; 93005; 99285

== ENCOUNTER → 2023-10-07 10:15 | Outpatient (BNV) | payer OTHER, SELFPAY | PROVIDERS: Visit Provider Psychiatry & Neurology Psychiatry | DX: F33.3 Major depressive disorder, recurrent, severe with psychotic symptoms (principal); F43.10 Post-traumatic stress disorder, unspecified; F42.9 Obsessive-compulsive disorder, unspecified; F84.0 Autistic disorder | CPT/HCPCS: 90792; 99213 ==

== ENCOUNTER 2023-10-09 15:08 | Emergency (ER) | payer OTHER, SELFPAY ==
[2023-10-09 15:14] VITALS: BP 135/82; PULSE 94; RESP 20; TEMP 37; O2SAT 99; BMI 25.1
--- NOTE | 2023-10-09 15:14 | ED_ITS ---
HPI - General Adult General Chief complaint: Psychiatric Symptoms Stated complaint: Crisis Time Seen by Provider: 10/09/23 15:22 Source: patient Mode of arrival: ambulatory Limitations: no limitations History of Present Illness HPI narrative: Patient is a 23 year old male who present to the ED for SI without a specific plan. Patient is withdrawn and frustrated, reporting to me that he can not answer any uestions of speak to me unless he can listen to music, as he can not function or be social without music. He does state that I can call his mother to get more histry as he feels unable to speak with me. When ased if he is having any HI he shakes his head no. When asked whether he uses an recreational drugs or alcohol, he shakes his head no. Patient reported initially to triage provider that he previously has a plan but would never act upon it, no attempts at self harm, s unable to enjoy things he typically finds enjoyable. Currently in [facility] outpatient program. He is currently being titrated off of effexor and recently started riperidone. Related Data Home Medications Medication Instructions Recorded Confirmed cetirizine 10 mg tablet (Zyrtec) 10 mg PO BEDTIME PRN allergies 10/01/23 10/09/23 trazodone 50 mg tablet 50 mg PO BEDTIME PRN insomnia 10/01/23 10/09/23 venlafaxine 37.5 mg 75 mg PO DAILY 10/09/23 10/09/23 capsule,extended release 24 hr Previous Rx's Medication Instructions Recorded risperidone 0.25 mg tablet 0.125 mg (1/2 x 0.25 mg) PO 10/03/23 BEDTIME #20 tabs clonazepam 0.5 mg tablet 0.5 mg PO BID as directed #14 tabs 10/08/23 lamotrigine 200 mg tablet 200 mg PO DAILY 30 days #30 tabs 10/08/23 Allergies Allergy/AdvReac Type Severity Reaction Status Date / Time peanut [PEANUT] Allergy Severe ANAPHYLAXIS Verified 10/09/23 15:34 Review of Systems 2 Review of Systems: Yes all other systems are reviewed and are negative PMFSH Past Medical History Attestation statement: The following information was validated with the patient. Source: old records reviewed Onset Date is defined in the Problem List Problems that require an onset date and time if occurred within 24 hrs of arrival to the ED Aortic Dissection and Rupture; Neurologic impairment; Cardiopulmonary Arrest; Endotracheal Intubation; Insertion or Replacement of Mechanical Circulatory Assist Device Medical History Bulimia Chronic post-traumatic stress disorder (PTSD) MDD (major depressive disorder), recurrent episode, severe Infected dog bite of face Hypospadias OCD (obsessive compulsive disorder) Depression Autism Surgical History History of tonsillectomy Social History Social History Household Members: Family Housing: House Do you presently have visiting nurse or other home services: No Alcohol intake: former Patient Tobacco Use Status: Never used Tobacco Smoked in Last 30 Days: No Second Hand Smoke Exposure: No Use of substances other than those prescribed or required for medical reasons: No Substance Use Type: Marijuana Advance Directives: No Advance Directives Information Provided: No service: No Sexual orientation: Straight/Heterosexual Physical Exam ED Vital Signs: Vital Signs - 24 hr 10/09/23 15:14 10/09/23 16:52 Temperature 98.6 F 97.9 F Pulse Rate 94 64 Respiratory Rate 20 16 Blood Pressure 135/82 124/60 Pulse Oximetry 99 96 Oxygen Delivery Method Room Air Room Air BMI result Body Mass Index 25.1 Appearance: Alert.?Oriented to person, place and time. No acute distress.?Normal affect. Eyes: Pupils equal, round and reactive to light.? ENT: Pharynx normal.?? Neck: Normal inspection.? Neck supple.?? CVS: Heart sounds normal. Normal heart rate and rhythm.? Pulses normal.?? Respiratory: No respiratory distress.? Lung sounds clear to auscultation bilaterally?? Abdomen: Soft and non-tender. Normoactive bowel sounds. ? Skin: Skin warm and dry.? Normal skin color.? ?? Extremities: No lower extremity edema.? Neuro: Moves all extremities spontaneously. Sensation intact bilaterally. CN II- XII intact. No focal neuro deficits. Ambulates with normal steady gait. Course Course Course Narrative: RME:?23 yo male hx of OCD, PTSD, MDD, autism here for crisis. Endorses depression and SI wtihout plan. Reports having a plan previously however states he would never act on it. no attempts at self harm. is unable to enjoy things he typically finds enjoyable. denies HI. Currently in [facility] outpatient program. He is currently being titrated off of effexor and recently started riperidone. no physical complaints. plan for medical clearance and care team Full HPI, ROS and PE to be performed by the primary ED provider. Reevaluation(s) Reevaluation #1: Physician observation ended. Patient was evaluated by care to, continues to deny any specific plan or intent, reports baseline suicidality secondary to his depression. Care team also spoke with mother who feels comfortable with bringing him back home. He will complete his outpatient partial program throughout this week. We discussed strict return precautions. Close follow-up with his care providers. Worrisome signs and symptoms that would warrant re- evaluation. Stable for discharge. Time: 20:43 Medical Decision Making Medical Decision Making [facility] Narrative: PAtient is a 23 year old male with pmhx of OCD, PTSD, MDD, autism, bulimia who presents with SI, no specific plan at this time. He is calm, but withdrawn and frustrated, as he does not have personal belonging including ability to listen to music. Vitals stable. Physical examination is benign. Differential Diagnosis Differential Diagnoses: The differential diagnosis associated with the presentation includes (depression, SI, withdrawal SNRI) Admission/Observation Consideration of admission/observation: Escalation of care including admission/observation considered (will require physician observation for CARE team evaluation and determiniation as to whether inpatient psych is required) Placed in physician observation at 18:00 Consult Healthcare Provider Management of the patient was discussed with: Behavioral Health Provider (CARE team) Lab Data [facility] Lab Attestation statement: I reviewed the patient's lab results. CBC and CMP are overall unremarkable. Urinalysis without evidence of infection. Toxicology unremarkable aside from positive for marijuana. 10/09/23 15:50 10/09/23 15:50 Labs: Lab Results 10/09/23 10/09/23 Range/Units 15:50 16:58 WBC 6.7 (4.8-10.8) X10*3/uL RBC 4.93 (4.60-5.80) X10*6/uL Hgb 16.2 (14.0-18.0) g/dl Hct 46.0 (42.0-52.0) % MCV 93.3 (80.0-98.0) fL MCH 32.9 (27.0-33.0) pg MCHC 35.2 (31.0-36.0) g/dl RDW 11.8 (11.0-16.0) % Plt Count 311 (160-400) X10*3/uL MPV 9.3 L (9.4-12.4) fL Immature Gran % (Auto) 0.3 (0.0-0.4) % Neut % (Auto) 58.2 (45-73) % Lymph % (Auto) 31.9 (20-40) % [place] % (Auto) 6.7 (2-11) % Eos % (Auto) 2.5 (0-4) % Baso % (Auto) 0.4 (0-2) % Lymph # (Auto) 2.2 (1.2-4.9) X10*3/uL [place] # (Auto) 0.5 (0.1-1.2) X10*3/uL Eos # (Auto) 0.2 (0.0-0.4) X10*3/uL Baso # (Auto) 0.0 (0.0-0.2) X10*3/uL Abs Immat Gran (auto) 0.02 (0.00-0.03) X10*3/uL Absolute Neuts (auto) 3.9 (2.0-8.3) x10*3/uL Absolute Nucleated RBC 0.000 (0.0-0.012) X10*3/uL Nucleated RBC % (auto) 0.0 (0.0-0.2) /100WBC Sodium 140 (135-145) mmol/L Potassium 3.8 (3.3-5.1) mmol/L Chloride 106 (96-108) mmol/L Carbon Dioxide 25 (22-29) mmol/L Anion Gap 13 (12-20) BUN 11 (9-16) mg/dL Creatinine 0.94 (0.5-1.4) mg/dL Estim Creat Clear Calc 119.2 Estimated GFR > 60 Random Glucose 91 (60-115) mg/dL Calcium 9.8 (8.4-10.2) mg/dL Magnesium 2.3 (1.6-2.6) mg/dL Lipase 33 (8-78) U/L Urine Color Yellow Urine Appearance Turbid Urine pH 8.5 (5.0-9.0) Ur Specific [place] 1.010 (1.005-1.025) Urine Protein Trace (Neg-Trace) mg/dL Urine Glucose (UA) Negative (Negative) mg/dL Urine Ketones Negative (Negative) mg/dL Urine Blood Negative (Negative) Urine Nitrite Negative (Negative) Ur Leukocyte Esterase Negative (Negative) Salicylates < 5.0 L (15-30) mg/dL Urine Opiates Screen Not Detected (Not Detect) Urine Fentanyl Screen Not Detected (Not Detect) Ur Barbiturates Screen Not Detected (Not Detect) Ur Phencyclidine Scrn Not Detected (Not Detect) Ur Amphetamines Screen Not Detected (Not Detect) U Benzodiazepines Scrn Not Detected (Not Detect) Urine Cocaine Screen Not Detected (Not Detect) U Marijuana (THC) Screen POSITIVE H (Not Detect) Ethyl Alcohol < 10 mg/dL Independent Historian Clinical information obtained from an independent historian. History obtained from or confirmed by: Parent (Mother) External Record Review External record reviewed: Outpatient record Discharge Plan Discharge Clinical Impression: Depression, Suicidal ideation Patient Disposition: Home, Self-Care Instructions: Depression (ED), Suicide Prevention (ED) Additional Instructions: Continue taking your medication as prescribed by your doctor. Follow-up closely with your providers. Complete partial program. Return back to emergency department any new or worsening symptoms or concerns. Prescriptions: No Action venlafaxine 37.5 mg capsule,extended release 24hr 75 mg PO DAILY Patient Comments: Patient's mother Philly stated this medication has been decreased from 75 mg to 37.5 mg daily. Rx Instructions: take with 75mg capsule trazodone 50 mg tablet 50 mg PO BEDTIME PRN (Reason: insomnia) Patient Comments: Patient's mother Philly stated patient is taking this at night. cetirizine [Zyrtec] 10 mg Tablet 10 mg PO BEDTIME PRN (Reason: allergies) risperidone 0.25 mg tablet 0.125 mg PO BEDTIME Qty: 20 0RF clonazepam 0.5 mg tablet 0.5 mg PO BID Qty: 14 0RF lamotrigine 200 mg tablet 200 mg PO DAILY 30 Days Qty: 30 0RF Referrals: Raheem Montemayor MD [Primary Care Provider] - Interventions: [place]-Suicide Risk Severity Scale Last Done: 10/09/23 17:20
[2023-10-09 16:00] LABS: MANUAL DIFF FLAG NO
[2023-10-09 16:02] LABS: Basophils Percent Auto 0.4 % (0-2); Eosinophils Absolute Auto 0.2 X10*3/uL (0.0-0.4); Eosinophils Percent Auto 2.5 % (0-4); Hemoglobin 16.2 g/dl (14.0-18.0); Imm Gran Abs Auto 0.02 X10*3/uL (0.00-0.03); Imm Gran Pct Auto 0.3 % (0.0-0.4); Lymphocytes Absolute Auto 2.2 X10*3/uL (1.2-4.9); Lymphocytes Percent Auto 31.9 % (20-40); Mean Corpuscular HGB Conc 35.2 g/dl (31.0-36.0); Mean Corpuscular Hemoglobin 32.9 pg (27.0-33.0); Mean Corpuscular Volume 93.3 fL (80.0-98.0); Mean Platelet Volume 9.3 fL (9.4-12.4); Monocytes Absolute Auto 0.5 X10*3/uL (0.1-1.2); Monocytes Percent Auto 6.7 % (2-11); Neutrophils Absolute Auto 3.9 x10*3/uL (2.0-8.3); Neutrophils Percent Auto 58.2 % (45-73); Platelet Count 311 X10*3/uL (160-400); Red Blood Count 4.93 X10*6/uL (4.60-5.80); Red Cell Distribution Width 11.8 % (11.0-16.0); White Blood Count 6.7 X10*3/uL (4.8-10.8)
[2023-10-09 16:18] LABS: Anion Gap 13 (12-20); Blood Urea Nitrogen 11 mg/dL (9-16); Calcium 9.8 mg/dL (8.4-10.2); Carbon Dioxide 25 mmol/L (22-29); Chloride 106 mmol/L (96-108); Creatinine Clr Calc Pharmacy 119.2; Estimated Glomerular Filt Rate > 60; Ethanol < 10 mg/dL; Glucose Random 91 mg/dL (60-115); Lipase 33 U/L (8-78); Magnesium 2.3 mg/dL (1.6-2.6); Potassium 3.8 mmol/L (3.3-5.1); Salicylate < 5.0 mg/dL (15-30); Sodium 140 mmol/L (135-145)
--- OUTSIDE RECORDS SUMMARY | 2023-10-09 16:19 | XMS_ITS | Continuity of Care Document ---
Author Name [facility] Care Team Providers Care Regional Property Manager Name Role Phone [facility] Unavailable Unavailable
[2023-10-09 16:52] VITALS: BP 124/60; PULSE 64; RESP 16; TEMP 36.6; O2SAT 96
[2023-10-09 17:07] LABS: Appearance Urine Turbid; Color Urine Yellow; Glucose Urine UA Negative (Negative); Leukocyte Esterase Urine Negative (Negative); Nitrite Urine Negative (Negative); PH 8.5 (5.0-9.0); Urine Blood Negative (Negative); Urine Ketones Negative (Negative); Urine Protein Trace mg/dL (Neg-Trace)
[2023-10-09 17:17] LABS: Amphetamine Screen Urine Not Detected (Not Detect); Barbiturates, Urine Not Detected (Not Detect); Benzodiazepines Screen Urine Not Detected (Not Detect); Cannabinoid Screen Urine POSITIVE (Not Detect); Cocaine Screen Urine Not Detected (Not Detect); Fentanyl, urine Not Detected (Not Detect); Opiate Screen Urine Not Detected (Not Detect); Phencyclidine Screen Urine Not Detected (Not Detect)
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
--- NOTE | 2023-10-09 18:56 | PHA.MEDREC ---
Pharmacy Consult ? Medication Reconciliation Pharmacy has reviewed the medication reconciliation completed by Bri. Cat Quinn, AlessiaD
== END 2023-10-09 21:11 | disposition home or self-care (01) ==
PROVIDERS: Physician Assistant Medical; Emergency Provider Internal Medicine; PCP Internal Medicine
DX: F33.2 Major depressive disorder, recurrent severe without psychotic features (principal); F84.0 Autistic disorder; F43.12 Post-traumatic stress disorder, chronic; F42.9 Obsessive-compulsive disorder, unspecified; Z79.899 Other long term (current) drug therapy
CPT/HCPCS: 36415; 80048; 80179; 80307; 81003; 83690; 83735; 85025; 99284; 99285; S9485

== ENCOUNTER 2023-10-14 09:45 | Outpatient (RCR) | payer OTHER, SELFPAY ==
[2023-10-01 11:42] VITALS: BP 111/68; PULSE 72; TEMP 36.8
[2023-10-01 11:44] VITALS: BMI 23.3
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
--- NOTE | 2023-10-03 17:49 | HO.PHP ---
[facility] staff member met with Александр, who expressed concerns around struggling with developing relationships. Александр shared that he feels it is challenging due to there being a stigma around males and how they behave. Александр feels as though he is going to come off as manipulative and does not want that to occur. Александр also voiced that he knows this is something that he needs to process while in program but is worried about being judged. PHP staff member expressed that we are here to support him throughout the groups with being able to process his thoughts and feelings appropriately. Александр was receptive. Александр continued to express his challenges in relationships, in which PHP staff member suggested that he brings this to the group to receive group members support. Александр was able to return to the last group of the day.
--- NOTE | 2023-10-03 18:02 | HO.PHP ---
PHP staff member and Ami were informed that Александр left the group upset and if we could check on him. Александр disclosed that he was frustrated with the conversation being had in group. Александр shared that they were talking about a movie, which then led to talking about one of the actors dating another actor. Александр got upset with this because he does not feel that is love and internalized those emotions. PHP staff explored with Александр what he can do when he is triggered by something group members are talking about. Александр voiced that he can leave. PHP staff asked him what if he is unable to leave, how can he handle that within the group setting. Александр stated he can tell the group his feelings. Александр then expressed worrying about being judged or not understood due to having a different thought process then others. Александр mentioned it is challenging to relate to others. PHP staff validated Raul feelings and voiced that it is okay if he is unable to relate. Александр talked about supressing situations that were traumatic for him and how those are currently impacting him. PHP staff assessed what Александр's goals are while here in the program. Александр had a challenging time identifying his goals. Александр talked about his self-harming behaviors and wanting to be able to not engage in them. Александр also stated that he hears voices and sees people from his memories. Александр acknowledged that he knows they are his thoughts but they feel real. Александр shared they are talking negatively to him and telling him to kill himself. PHP staff asked Max how often this is occurring. Александр reported on a daily basis. PHP staff asked Александр when he goes home tonight and hears those voices will he be able to refrain from acting on them. Александр expressed that he can't guarantee. PHP staff asked Max if he feels he needs to go get evaluated. Александр did not want to get evaluated and was opening up around how he feels. PHP staff informed Александр that she would review with the team. Ami stayed with Александр while the PHP staff member followed up with the team. PHP staff member asked Max to stay so he could meet with Dr. Ingram. Александр was receptive.
--- NOTE | 2023-10-03 18:06 | HO.PHPPROGNO ---
Subjective Subjective Date of Service: 10/03/23 Reason For Visit: MDD,PTSD,OCD Interim History: Patient requesting to be seen. Apparently became very dysregulated by groups today. Non-specific complaints about the various topics covered (finding discussions on relationships to be particularly triggering) and relays being hypersensitive about the opinions of the other patients (which did not pertain to him directly or indirectly) but generally taking offense when people relayed having a cavalier attitude about their own personal relationships or when people demonstrated a lack of empathy or politeness in their interactions with one another. We discussed interpersonal boundaries, projection and other defenses. He recognizes his strong emotional reaction to the group discussions is related to his underlying feelings of vulnerability on these topics, though not necessarily irrational. We discuss starting low dose risperidone to target some of the cognitive rigidity and irritability. Medication Compliance: Yes Side effects from medications: No Attending Groups: Yes Review of Systems Acute medical concerns: No Mental Status Exam Mental Status Exam Narrative: Alert, oriented, in no acute distress. Groomed. Hygiene intact. Ear bud in one ear, fidgets with other ear bud hanging. Cooperative, oddly related. Stilted communication style. Prolonged eye contact, infrequently blinks, slightly offset gaze. Mood angry, frustrated, affect irritable. Normal speech. Thought process linear, coherent without FOI or MARY. Thought content relevant to stressors, feelings of helplessness, hopelessness endorsed. Passive SI without plan or intent. Denies aggressive ideation or HI. Denies AH or VH. No evidence of perceptual disturbance. Cognition grossly intact. Sensorium clear. Insight and judgment fair. Diagnostics Vital Signs (24Hr): BMI result Body Mass Index 23.3 Assessment & Plan Assessment & Plan (1) MDD (major depressive disorder), recurrent episode, severe: Qualifiers: Psychotic features: with psychotic features Qualified Code(s): F33.3 - Major depressive disorder, recurrent, severe with psychotic symptoms Status: Acute Code(s): F33.2 - Major depressive disorder, recurrent severe without psychotic features (2) Complex posttraumatic stress disorder: Status: Acute Code(s): F43.10 - Post-traumatic stress disorder, unspecified (3) OCD (obsessive compulsive disorder): Qualifiers: Obsessive-compulsive disorder type: unspecified Qualified Code(s): F42.9 - Obsessive-compulsive disorder, unspecified Status: Acute Code(s): F42.9 - Obsessive-compulsive disorder, unspecified (4) Autism spectrum disorder: Status: Acute Code(s): F84.0 - Autistic disorder Plan start risperidone 0.25 mg (1/2 tablet+0.125 mg tablet) Patient educated on: diagnosis, medication risk/benefits and therapeutic strategies Informed Consent: understands Certification I certify that partial hospital treatment is medically necessary due to the symptoms and problems resulting from the patient's mental illness and the failure to treat the patient at the partial hospital level of care would likely result in the patient requiring inpatient psychiatric care which could not be prevented at a less intensive level of care. Total time managing care of this patient today _30___ minutes. Discharge Plan Discharge Attending provider: Alee Ingram Medications: New lamotrigine 200 mg tablet 200 mg PO DAILY 30 Days Qty: 30 0RF fluvoxamine 50 mg tablet See Rx Instructions .ROUTE .COMPLEX Qty: 30 0RF Rx Instructions: take 1/2 tablet po daily at bedtime for 6 days then increase to one tablet po daily at bedtime risperidone [Risperdal] 0.5 mg tablet 0.5 mg PO BEDTIME 30 Days Qty: 30 0RF risperidone 0.25 mg tablet See Rx Instructions .ROUTE .COMPLEX 30 Days Qty: 90 0RF Rx Instructions: take one tablet po daily in AM, take one tablet po daily in afternoon, take one tablet po daily as needed for agitation metformin 500 mg tablet 250 - 500 mg PO .QHS Qty: 30 0RF Continued trazodone 50 mg tablet 50 mg PO BEDTIME PRN (Reason: insomnia) Patient Comments: Patient's mother Philly stated patient is taking this at night. cetirizine [Zyrtec] 10 mg Tablet 10 mg PO BEDTIME PRN (Reason: allergies) Changed clonazepam 0.5 mg tablet 0.5 mg PO BID PRN (Reason: as directed) Qty: 14 0RF Discontinued clonidine HCl 0.1 mg Tablet 0.1 mg PO Q4H PRN (Reason: anxiety) 30 Days Qty: 120 2RF Protocol: Hold for SBP< HOLD for SBP < : 90 venlafaxine 37.5 mg capsule,extended release 24hr 75 mg PO DAILY Patient Comments: Patient's mother Philly stated this medication has been decreased from 75 mg to 37.5 mg daily. Rx Instructions: take with 75mg capsule lamotrigine 150 mg tablet 150 mg PO DAILY Stand Alone Forms: Patient Portal Discharge page
--- NOTE | 2023-10-03 19:03 | HO.PHP ---
Client's case has been opened and reviewed in treatment team.
--- NOTE | 2023-10-04 23:41 | HO.PHPPROGNO ---
Subjective Subjective Date of Service: 10/04/23 Reason For Visit: MDD,PTSD,OCD Interim History: Patient requests to speak with provider to discuss medications. He picked up the risperidone but did not start on it yet, as his mother had mentioned that his previous provider spoke about switching him to Seroquel as a mood stabilizer, but that this was not started due to concerns for weight gain. We reviewed the discussion from yesterday regarding our goals for treating with risperidone, which were more cognitive/behavioral rather than affective. We did not anticipate using the risperidone to target depression, but namely to deal with the cognitive inflexibility and irritability that may be hampering the possibility for more effective socialization which was one of the goals/areas of concern cited by the patient. In reviewing his medications, it is noted that the venlafaxine was lowhe reports that it was found to be ineffective and his provider had tapered down with the aim of holding off at the lowest dose, since he was being referred to TMS which requires a person be on an antidepressant. I suggest we consider another AD trial, given that there are still other options he has not yet tried to treat depression. For now, we will continue to explore these options while he lowers the dose to 37.5. Medication Compliance: Yes Side effects from medications: No Attending Groups: Yes Review of Systems Acute medical concerns: No Mental Status Exam Mental Status Exam Narrative: Alert, oriented, in no acute distress. Groomed. Hygiene intact. Ear bud in one ear, fidgets with other ear bud hanging. Calm, but somewhat stiff/prim posture. Cooperative, oddly related. Stilted communication style. Prolonged eye contact, infrequently blinks, slightly offset gaze. Mood depressed, affect flat. Normal speech. Thought process linear, coherent without FOI or MARY. Thought content relevant to stressors, feelings of helplessness, hopelessness endorsed. Denies SI or HI, intention, urge or plan. Denies AH or VH. No evidence of perceptual disturbance. Cognition grossly intact. Sensorium clear. Insight and judgment fair. Diagnostics Vital Signs (24Hr): BMI result Body Mass Index 23.3 Assessment & Plan Assessment & Plan (1) MDD (major depressive disorder), recurrent episode, severe: Status: Acute Code(s): F33.2 - Major depressive disorder, recurrent severe without psychotic features (2) Complex posttraumatic stress disorder: Status: Acute Code(s): F43.10 - Post-traumatic stress disorder, unspecified (3) Autism spectrum disorder: Status: Acute Code(s): F84.0 - Autistic disorder Plan start risperidone 0.125 mg qhs taper off venlafaxine continue other medications may consider increasing dose of Lamictal continue to monitor Patient educated on: diagnosis and medication risk/benefits Informed Consent: understands Reason for contiued partial hosp. stay Substantial Risk for: harm to self, rapid decompensation and med/psych decompensation Certification I certify that partial hospital treatment is medically necessary due to the symptoms and problems resulting from the patient's mental illness and the failure to treat the patient at the partial hospital level of care would likely result in the patient requiring inpatient psychiatric care which could not be prevented at a less intensive level of care. Total time managing care of this patient today __30__ minutes. Discharge Plan Discharge Attending provider: Alee Ingram Medications: New lamotrigine 200 mg tablet 200 mg PO DAILY 30 Days Qty: 30 0RF fluvoxamine 50 mg tablet See Rx Instructions .ROUTE .COMPLEX Qty: 30 0RF Rx Instructions: take 1/2 tablet po daily at bedtime for 6 days then increase to one tablet po daily at bedtime risperidone [Risperdal] 0.5 mg tablet 0.5 mg PO BEDTIME 30 Days Qty: 30 0RF risperidone 0.25 mg tablet See Rx Instructions .ROUTE .COMPLEX 30 Days Qty: 90 0RF Rx Instructions: take one tablet po daily in AM, take one tablet po daily in afternoon, take one tablet po daily as needed for agitation metformin 500 mg tablet 250 - 500 mg PO .QHS Qty: 30 0RF Continued trazodone 50 mg tablet 50 mg PO BEDTIME PRN (Reason: insomnia) Patient Comments: Patient's mother Philly stated patient is taking this at night. cetirizine [Zyrtec] 10 mg Tablet 10 mg PO BEDTIME PRN (Reason: allergies) Changed clonazepam 0.5 mg tablet 0.5 mg PO BID PRN (Reason: as directed) Qty: 14 0RF Discontinued clonidine HCl 0.1 mg Tablet 0.1 mg PO Q4H PRN (Reason: anxiety) 30 Days Qty: 120 2RF Protocol: Hold for SBP< HOLD for SBP < : 90 venlafaxine 37.5 mg capsule,extended release 24hr 75 mg PO DAILY Patient Comments: Patient's mother Philly stated this medication has been decreased from 75 mg to 37.5 mg daily. Rx Instructions: take with 75mg capsule lamotrigine 150 mg tablet 150 mg PO DAILY Stand Alone Forms: Patient Portal Discharge page
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
--- NOTE | 2023-10-09 17:39 | HO.PHP ---
Khadar removed himself from group 4, in which he asked to speak to the clinician due to feeling overwhelmed by the group topic. [facility] staff met with Khadar and explored what was occurring for him. Khadar was able to vocalize his struggles in relationships and being able to relate to individuals. Khadar expressed wanting to be able to have a caring relationship and shared the one time he felt others cared about him. Khadar appears to struggle to identify when people are being supportive of him due to past trauma. Khadar talked about how his past trauma's effect him currently. [facility] staff encouraged Khadar to further explore his past trauma with his therapist. Khadar was receptive. [facility] staff member reviewed his level of risk due to him expressing SI without a plan or intent in group 3. Khadar shared that he struggles with SI on a daily and he often thinks about not wanting to be conscious anymore. Khadar shared the challenges he faces due to his autism and others not understanding him. Khadar expressed that he had SI with a plan in the summer but his attempt did not work. [facility] staff asked if he currently has a plan. Khadar hesitated but stated he does not. [facility] staff member, Leticia, joined. Leticia further explored his level of risk. Due to Khadar not being able to express he would be able to be safe when he goes home, [facility] staff members suggested he gets evaluated. Khadar agreed to this but wanted staff to inform his mother. [facility] staff member contacted his mother, Philly, in which she asked to come in to further review with Khadar and the [facility] staff member. [facility] staff member, Khadar, and Philly engaged in conversation around the safety concerns due to Khadar not being able to contract for safety. Philly informed the [facility] staff member prior to joining with Khadar that there are safety concerns that occur almost on a daily at home. Philly explored with Khadar what was occurring. Khadar shared some of what is occurring for him and noted that he had to contact crisis on Saturday as well. Philly assessed why he had to do that but Khadar was not comfortable with sharing. After Khadar explained what is occurring for him, [facility] staff member asked Philly what her thoughts are around having him evaluated or going home. Khadar noted he will be safe and has no plan to do anything, which, if he did he would tell his mother about it. Philly agreed and said he does talk to her when he does have thoughts of a plan, in which she feels safe with him coming home for the night. [facility] staff informed the mother that she would like to develop a safety plan for tonight. [facility] staff member created a safety plan with Philly and Khadar. Khadar was still not being clear around his safety and stated he believes he would like to be evaluated due to wanting to talk about 2 or 3 more things. [facility] staff member and Philly were in agreement. [facility] staff member also provided the mother with the crisis numbers if they need them. Philly was receptive. The safety plan that was worked on is in his paper file to review. [facility] staff member walked Khadar down to the ER to be evaluated by the care team. While in there Khadar was reporting SI without a plan or intent and was still being unclear around safety. The medical team informed him what the next steps would be and how long he would have to wait to see the care team, which led Khadar to then stating he was fine and just would like to meet with the [facility] staff member to develop a plan for tonight. The medical team informed him that he had concerns around his safety and so did the team, therefore, they are going to have him evaluated. Khadar did not appear to like this response and voiced he was unaware of what he agreed to. The medical team continued to inform him that they would need to assess him first before they discharge him due to safety concerns. Khadar was in agreement. [facility] staff followed up with Slim while Khadar waited for the CareTeam. [facility] staff informed Slim of what had occurred to prompt an evaluation. Slim was receptive and voiced that we can review khadar's file or she can email regarding an update. [facility] staff member was receptive. Slim explored with [facility] staff member if he were cleared, can he return to program. [facility] staff member noted that he could return to program tomorrow. Slim was receptive.
--- NOTE | 2023-10-10 09:35 | PC.NURSE ---
Александр did not show up to [facility] this morning. I spoke to his mother Philly who stated Александр is still sleeping as he had a long night in the ER last night and did not get home until 2099. Stated he is, wiped out and will be at the program on Saturday. [facility] staff is aware.
--- NOTE | 2023-10-11 14:15 | HO.PHP ---
[facility] staff member and Ami, met with Александр due to him struggling within the second group around weekend planning. Александр had shared that he was trying to regulate from the first group since it was challenging for him. Dina acknowledged his struggles and shared what she had observed he was doing in the second group. Александр was unaware of his behaviors while in the group setting. [facility] staff and Ami explored if Александр feels he will be able to continue with the program today or if he needs to go home. Александр expressed that he would like to try to continue. [facility] staff informed Александр if he is continuing to struggle to reach out to us for support. Александр was receptive.
--- NOTE | 2023-10-11 14:28 | HO.PHP ---
[facility] staff member entered the hallway and observed Александр pacing and breathing heavily. [facility] staff member and Leticia met with Александр to assess what was occurring. Александр shared that the topics being discussed today were challenging and he is continuing to struggle with being able to develop healthy relationships. [facility] staff empathized with Александр and discussed how this program may not be the right fit for him at this time. [facility] staff member explored if he has DDS in place, which he noted he does but he does not like to feel he has a disability. Александр expressed that he does not want to continue to go through this and trying to find ways that work. [facility] staff validated his feelings and also acknowledged that this program is challenging. The med provider, then came to get Александр and will further assess risk level and if this program is an appropriate fit.
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
--- NOTE | 2023-10-14 18:57 | HO.PHPPROGNO ---
Subjective Subjective Date of Service: 10/14/23 Reason For Visit: MDD,PTSD,OCD Interim History: Patient reporting having a better weekend. He trialed taking the risperidone during the day on Saturday and again yesterday at 0.125. He says it was helpful and was able to tolerate being in a new environment yesterday and says the try-outs were stressful but was able to enjoy being there without getting overwhelmed. He was able to tell after 2 hours that he was starting to reach max out his social battery but feels more hopeful that the risperidone may make being out around people and interacting much more tolerable. Today he is in a good mood. As planned, he is not joining into the groups today, as we had planned for a low stimulation day so he can be discharged feeling calm. 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 He denies any adverse effects from the fluvoxamine or the Risperdal. He plans to continue the fluvoxamine at 50 mg qhs and will follow up with his OP provider for further medicaiton management. Medication Compliance: Yes Side effects from medications: No Attending Groups: Yes Review of Systems Acute medical concerns: No Mental Status Exam Mental Status Exam Narrative: Alert, oriented, in no acute distress. Groomed. Hygiene intact. Ear bud in one ear, fidgets with other ear bud hanging. Calm, but somewhat stiff/prim posture. Cooperative, oddly related. Stilted communication style. Prolonged eye contact, infrequently blinks, slightly offset gaze. Mood depressed, affect flat. Normal speech. Thought process linear, coherent without FOI or MARY. Thought content relevant to stressors, transient feelings of helplessness, hopelessness endorsed. Denies SI or HI, intention, urge or plan. Denies AH or VH. No evidence of perceptual disturbance. Cognition grossly intact. Sensorium clear. Insight and judgment fair Diagnostics Vital Signs (24Hr): BMI result Body Mass Index 23.3 Assessment & Plan Assessment & Plan (1) MDD (major depressive disorder), recurrent episode, severe: Qualifiers: Psychotic features: with psychotic features Qualified Code(s): F33.3 - Major depressive disorder, recurrent, severe with psychotic symptoms Status: Acute Code(s): F33.2 - Major depressive disorder, recurrent severe without psychotic features (2) OCD (obsessive compulsive disorder): Qualifiers: Obsessive-compulsive disorder type: unspecified Qualified Code(s): F42.9 - Obsessive-compulsive disorder, unspecified Status: Acute Code(s): F42.9 - Obsessive-compulsive disorder, unspecified (3) Complex posttraumatic stress disorder: Status: Acute Code(s): F43.10 - Post-traumatic stress disorder, unspecified (4) Autism spectrum disorder: Status: Acute Code(s): F84.0 - Autistic disorder Plan Discharge from [facility] will schedule risperidone 0.25 mg BID (in AM and early afternoon) hold for sedation continue risperidone 0.5 mg qhs continue fluvoxamine at 50 mg qd (plan for further titration with outpatient provider start metformin 250 mg qhs will defer further medication management to community provider Patient educated on: diagnosis, medication risk/benefits and therapeutic strategies Informed Consent: understands Reason for contiued partial hosp. stay Substantial Risk for: stable for discharge Certification I certify that partial hospital treatment is medically necessary due to the symptoms and problems resulting from the patient's mental illness and the failure to treat the patient at the partial hospital level of care would likely result in the patient requiring inpatient psychiatric care which could not be prevented at a less intensive level of care. Total time managing care of this patient today __30__ minutes. Discharge Plan Discharge Attending provider: Alee Ingram Medications: New lamotrigine 200 mg tablet 200 mg PO DAILY 30 Days Qty: 30 0RF fluvoxamine 50 mg tablet See Rx Instructions .ROUTE .COMPLEX Qty: 30 0RF Rx Instructions: take 1/2 tablet po daily at bedtime for 6 days then increase to one tablet po daily at bedtime risperidone [Risperdal] 0.5 mg tablet 0.5 mg PO BEDTIME 30 Days Qty: 30 0RF risperidone 0.25 mg tablet See Rx Instructions .ROUTE .COMPLEX 30 Days Qty: 90 0RF Rx Instructions: take one tablet po daily in AM, take one tablet po daily in afternoon, take one tablet po daily as needed for agitation metformin 500 mg tablet 250 - 500 mg PO .QHS Qty: 30 0RF Continued trazodone 50 mg tablet 50 mg PO BEDTIME PRN (Reason: insomnia) Patient Comments: Patient's mother Philly stated patient is taking this at night. cetirizine [Zyrtec] 10 mg Tablet 10 mg PO BEDTIME PRN (Reason: allergies) Changed clonazepam 0.5 mg tablet 0.5 mg PO BID PRN (Reason: as directed) Qty: 14 0RF Discontinued clonidine HCl 0.1 mg Tablet 0.1 mg PO Q4H PRN (Reason: anxiety) 30 Days Qty: 120 2RF Protocol: Hold for SBP< HOLD for SBP < : 90 venlafaxine 37.5 mg capsule,extended release 24hr 75 mg PO DAILY Patient Comments: Patient's mother Philly stated this medication has been decreased from 75 mg to 37.5 mg daily. Rx Instructions: take with 75mg capsule lamotrigine 150 mg tablet 150 mg PO DAILY Stand Alone Forms: Patient Portal Discharge page
== END 2023-10-14 23:59 | disposition home or self-care (01) ==
LOC: HO.PHPA 09:45
PROVIDERS: Visit Provider Psychiatry & Neurology Psychiatry
DX: F33.3 Major depressive disorder, recurrent, severe with psychotic symptoms (principal); F43.10 Post-traumatic stress disorder, unspecified; F84.0 Autistic disorder; F42.9 Obsessive-compulsive disorder, unspecified; Z79.899 Other long term (current) drug therapy
CPT/HCPCS: 90791; 90853

== ENCOUNTER 2024-02-02 17:58 | Inpatient (IN) | payer OTHER, SELFPAY ==
[2024-02-02 18:08] VITALS: BP 118/70; PULSE 87; RESP 16; TEMP 37.4; O2SAT 97; BMI 23.5
--- NOTE | 2024-02-02 18:08 | ED.GENADULT ---
HPI - General Adult General Chief complaint: Psychiatric Symptoms Stated complaint: crisis, feeling unsafe @ home. Time Seen by Provider: 02/02/24 18:22 Source: patient, RN notes reviewed and old records reviewed Mode of arrival: ambulatory Limitations: no limitations History of Present Illness HPI narrative: 23-year-old male with past medical history significant for major depression, autism spectrum disorder, PTSD presents for evaluation of suicidal ideation. Patient reports worsening suicidal ideation over the last couple of weeks He reports that his parents decided to get a divorce and he has had a falling out with a couple of his friends This has led to increasing depression He is having thoughts of harming himself but does not have a plan He reports this same feelings happened about a year ago and he was helped by coming to this hospital. He states that he no longer receives pleasure from his usual instructions of music and are Related Data Home Medications ?Medication ?Instructions ?Recorded ?Confirmed cetirizine 10 mg tablet (Zyrtec) 10 mg PO BEDTIME PRN allergies 10/01/23 02/02/24 trazodone 50 mg tablet 50 mg PO BEDTIME PRN insomnia 10/01/23 02/02/24 clonidine HCl 0.1 mg tablet 0.1 mg PO BID PRN Anxiety 02/02/24 02/02/24 hydroxyzine HCl 25 mg tablet 25 mg PO Q6H PRN anxiety 02/02/24 02/02/24 metformin 500 mg tablet 500 mg PO DAILY 02/02/24 02/02/24 risperidone 0.5 mg tablet 0.5 mg PO TID 02/02/24 02/02/24 (Risperdal) Previous Rx's ?Medication ?Instructions ?Recorded lamotrigine 200 mg tablet 200 mg PO DAILY 30 days #30 tabs 10/08/23 fluvoxamine 50 mg tablet See Rx Instructions .Route 10/11/23 .COMPLEX #30 tabs clonazepam 0.5 mg tablet 0.5 mg PO BID PRN as directed #14 10/14/23 tabs Allergies Allergy/AdvReac Type Severity Reaction Status Date / Time peanut [PEANUT] Allergy Severe ANAPHYLAXIS Verified 02/02/24 18:10 Review of Systems Constitutional: Constitutional: Denies body ache(s), Denies chills and Denies fever(s) Eyes: Eyes: Denies blurry vision ENT: Denies sore throat Cardiovascular: Cardiovascular: Denies chest pain and Denies dyspnea Respiratory: Respiratory: Denies cough and Denies dyspnea Gastrointestinal: Gastrointestinal: Denies abdominal pain, Denies nausea and Denies vomiting Musculoskeletal: Musculoskeletal: Denies back pain Integumentary/Breasts: Skin/Breast: Denies rash Psychiatric: Psychiatric: Reports depression and Reports suicidal ideation PMFSH Past Medical History Medical History Bulimia Chronic post-traumatic stress disorder (PTSD) MDD (major depressive disorder), recurrent episode, severe Infected dog bite of face Hypospadias OCD (obsessive compulsive disorder) Depression Autism Surgical History History of tonsillectomy Social History Social History Household Members: Family Housing: House Do you presently have visiting nurse or other home services: No Alcohol intake: former Patient Tobacco Use Status: Never used Tobacco Smoked in Last 30 Days: No Second Hand Smoke Exposure: No Use of substances other than those prescribed or required for medical reasons: Yes Substance Use Type: Marijuana Substance Use Frequency: Daily Last Used Substance: Hours (ago) Advance Directives: No Advance Directives Information Provided: No Do you have a plan to hurt others: No Plan service: No Sexual orientation: Straight/Heterosexual Physical Exam ED Vital Signs: Vital Signs - 24 hr 02/02/24 18:08 02/02/24 18:56 02/02/24 23:22 Temperature 99.3 F 99.3 F 98.0 F Pulse Rate 87 87 63 Respiratory Rate 16 16 16 Blood Pressure 118/70 118/70 133/69 Pulse Oximetry 97 97 99 Oxygen Delivery Method Room Air Room Air Room Air 02/02/24 23:25 02/03/24 09:39 Temperature 97.8 F Pulse Rate 71 Respiratory Rate 18 Blood Pressure 133/69 104/65 Pulse Oximetry 96 Oxygen Delivery Method Room Air BMI result Body Mass Index 23.5 Const General: healthy appearing, comfortable, no acute distress, alert and awake Nutritional Appearance: well nourished Orientation/consciousness: patient oriented x3 HENMT Head: Yes normocephalic and Yes atraumatic Eyes Eyelids: Yes eyelids normal Conjunctivae: conjunctivae normal Sclerae: sclerae normal Corneas: corneas normal Pupils: Equal, round and reactive pupils present EOM: EOMs intact bilaterally Neck Neck: Yes full ROM Resp Effort & Inspection: normal respiratory effort, able to speak in complete sentences and not labored Cardio Rate: regular rate Rhythm: regular rhythm GI Inspection: No distended Palpation (GI): Soft to palpation, not firm, nontender, no guarding and not rigid Skin General skin exam: elasticity normal Neuro General: patient oriented x3 Cranial nerves: Yes Equal, round and reactive pupils present and Yes Bilaterally intact EOM present Cognition (Neuro): normal cognition Extrem Other: Moving all extremities well without any obvious deformities Course Course Course Narrative: RME performed by Mally Marshall PA-C. Patient is a 23 year old assigned male at presenting to the emergency department with suicidal ideation. Patient states he is in a lot of emotional pain and is very overwhelmed. Patient states that the emotional pain is so severe that he just wants it all to end. Patient states that he has a plan has to how he would kill himself but does not elaborate. Patient states that he is hearing some voices as well. Detailed physical exam and review of systems are deferred to the primary care sales representative. Patient taken to behavioral health pod. Reevaluation(s) Reevaluation #1: Patient is seen by the care team, he will be a bed search for inpatient psychiatric care Time: 23:16 Reevaluation #2: 02/03/2024 07:50 PATIENT IS CLINICALLY STABLE HISTORY OF PTSD DEPRESSION AUTISM SPECTRUM DISORDER HE IS INPATIENT LEVEL OF CARE NO NEW COMPLAIN Time: 07:58 Reevaluation #3: February 02 13:07 patient while brushing his teeth spit some blood I re-examined the patient at this time stable clinically normotensive heart rate 85 respiration 18 we are going to get a CBC Additional Reevaluation(s): Feb 03 2024 15:26 I re-examined the patient asymptomatic his repeat CBC was normal his hemoglobin is better than yesterday from 14.6 to 14.7 no further bleeding most likely was coming from the oropharynx when he was brushing his teeth Medications Administered Generic Name Dose Route Start Last Admin Trade Name Freq PRN Reason Stop Dose Admin Clonazepam 0.5 mg 02/02/24 19:37 02/03/24 10:46 Clonazepam 0.5 Mg Tablet PO 0.5 mg BID PRN Administration as directed Clonidine HCl 0.1 mg 02/02/24 19:37 02/02/24 23:25 Clonidine Hcl 0.1 Mg Tablet PO 0.1 mg BID PRN Administration Anxiety Protocol Fluvoxamine Maleate 50 mg 02/02/24 21:00 02/02/24 20:43 Fluvoxamine Maleate 50 Mg Tablet PO 50 mg BEDTIME ALAN Administration Lamotrigine 200 mg 02/03/24 09:00 02/03/24 08:02 Lamotrigine 100 Mg Tablet PO 200 mg DAILY ALAN Administration Loratadine 10 mg 02/02/24 19:37 02/02/24 23:25 Loratadine 10 Mg Tablet PO 10 mg BEDTIME PRN Administration allergies Metformin HCl 500 mg 02/03/24 09:00 02/03/24 08:02 Metformin Hcl 500 Mg Tablet PO 500 mg DAILY ALAN Administration Risperidone 0.5 mg 02/02/24 21:00 02/03/24 14:49 Risperidone 0.5 Mg Tablet PO 0.5 mg TID ALAN Administration Trazodone HCl 50 mg 02/02/24 19:37 02/02/24 23:25 Trazodone Hcl 50 Mg Tablet PO 50 mg BEDTIME PRN Administration insomnia Medical Decision Making Medical Decision Making MDM Narrative: 23-year-old male presents for evaluation depression with suicidal ideation. He reports being compliant with his medications. Plan for medical clearance and care team evaluation Differential Diagnosis Differential Diagnoses: The differential diagnosis associated with the presentation includes Depression Suicidal ideation Medication noncompliance Substance abuse Lab Data 02/03/24 13:08 02/02/24 18:42 Labs: Lab Results 02/02/24 Range/Units 18:42 WBC 6.8 (4.8-10.8) X10*3/uL RBC 4.57 L (4.60-5.80) X10*6/uL Hgb 14.6 (14.0-18.0) g/dl Hct 41.5 L (42.0-52.0) % MCV 90.8 (80.0-98.0) fL MCH 31.9 (27.0-33.0) pg MCHC 35.2 (31.0-36.0) g/dl RDW 11.7 (11.0-16.0) % Plt Count 256 (160-400) X10*3/uL MPV 10.0 (9.4-12.4) fL Immature Gran % (Auto) 0.4 (0.0-0.4) % Neut % (Auto) 50.5 (45-73) % Lymph % (Auto) 39.3 (20-40) % [place] % (Auto) 6.6 (2-11) % Eos % (Auto) 2.8 (0-4) % Baso % (Auto) 0.4 (0-2) % Lymph # (Auto) 2.7 (1.2-4.9) X10*3/uL [place] # (Auto) 0.5 (0.1-1.2) X10*3/uL Eos # (Auto) 0.2 (0.0-0.4) X10*3/uL Baso # (Auto) 0.0 (0.0-0.2) X10*3/uL Abs Immat Gran (auto) 0.03 (0.00-0.03) X10*3/uL Absolute Neuts (auto) 3.5 (2.0-8.3) x10*3/uL Absolute Nucleated RBC 0.000 (0.0-0.012) X10*3/uL Nucleated RBC % (auto) 0.0 (0.0-0.2) /100WBC Sodium 142 (135-145) mmol/L Potassium 3.8 (3.3-5.1) mmol/L Chloride 106 (96-108) mmol/L Carbon Dioxide 25 (22-29) mmol/L Anion Gap 15 (12-20) BUN 11 (9-16) mg/dL Creatinine 0.99 (0.5-1.4) mg/dL Estim Creat Clear Calc 109.4 Estimated GFR > 60 Random Glucose 94 (60-115) mg/dL Calcium 10.0 (8.4-10.2) mg/dL Total Bilirubin 0.4 (0.0-1.0) mg/dL AST 15 (5-37) U/L ALT 11 (0-40) U/L Alkaline Phosphatase 64 (39-117) U/L Total Protein 7.9 (6.5-8.0) g/dL Albumin 4.9 (3.5-5.0) g/dL Urine Color Yellow Urine Appearance Turbid Urine pH >= 9.0 (5.0-9.0) Ur Specific [place] 1.025 (1.005-1.025) Urine Protein 30 (1+) H (Neg-Trace) mg/dL Urine Glucose (UA) Negative (Negative) mg/dL Urine Ketones Negative (Negative) mg/dL Urine Blood Negative (Negative) Urine Nitrite Negative (Negative) Ur Leukocyte Esterase Negative (Negative) Urine RBC 0-2 (0-2) /HPF Urine WBC 0-5 (0-5) /HPF Ur Squamous Epith Cells 0-2 (0-2) /HPF Urine Bacteria None Seen (None Seen) Hyaline Casts 0-2 (0-2) /LPF Salicylates < 5.0 L (15-30) mg/dL Urine Opiates Screen Not Detected (Not Detect) Ur Buprenorphine Scrn Not Detected (Not Detect) ng/mL Ur Oxycodone Screen Not Detected (Not Detect) ng/mL Urine Methadone Screen Not Detected (Not Detect) ng/mL Urine Fentanyl Screen Not Detected (Not Detect) Ur Barbiturates Screen Not Detected (Not Detect) Ur Phencyclidine Scrn Not Detected (Not Detect) Ur Amphetamines Screen Not Detected (Not Detect) U Benzodiazepines Scrn Not Detected (Not Detect) Urine Cocaine Screen Not Detected (Not Detect) U Marijuana (THC) Screen POSITIVE H (Not Detect) Ethyl Alcohol < 10 mg/dL COVID-19 ([facility]) Negative (Negative) COVID-19 Clin Com See Note Discharge Plan Discharge Clinical Impression: Suicidal ideation Patient Disposition: Still a Patient Interventions: [place]-Suicide Risk Severity Scale Last Done: 02/02/24 18:55
[2024-02-02 18:48] LABS: MANUAL DIFF FLAG NO
[2024-02-02 18:53] LABS: Appearance Urine Turbid; Color Urine Yellow; Glucose Urine UA Negative (Negative); Leukocyte Esterase Urine Negative (Negative); Nitrite Urine Negative (Negative); PH >= 9.0 (5.0-9.0); Specific Gravity - Urine 1.025 (1.005-1.025); UMIC TRIGGER UA YES; Urine Blood Negative (Negative); Urine Ketones Negative (Negative); Urine Protein 30 (1+) mg/dL (Neg-Trace)
[2024-02-02 18:56] VITALS: BP 118/70; PULSE 87; RESP 16; TEMP 37.4; O2SAT 97
[2024-02-02 19:00] LABS: Amphetamine Screen Urine Not Detected (Not Detect); Barbiturates, Urine Not Detected (Not Detect); Benzodiazepines Screen Urine Not Detected (Not Detect); Buprenorphine Scr Not Detected (Not Detect); Cannabinoid Screen Urine POSITIVE (Not Detect); Cocaine Screen Urine Not Detected (Not Detect); Fentanyl, urine Not Detected (Not Detect); Methadone Screen, Urine Not Detected (Not Detect); Opiate Screen Urine Not Detected (Not Detect); Oxycodone Screen Urine Not Detected (Not Detect); Phencyclidine Screen Urine Not Detected (Not Detect)
[2024-02-02 19:02] LABS: Basophils Percent Auto 0.4 % (0-2); Eosinophils Absolute Auto 0.2 X10*3/uL (0.0-0.4); Eosinophils Percent Auto 2.8 % (0-4); Hematocrit 41.5 % (42.0-52.0); Hemoglobin 14.6 g/dl (14.0-18.0); Imm Gran Abs Auto 0.03 X10*3/uL (0.00-0.03); Imm Gran Pct Auto 0.4 % (0.0-0.4); Lymphocytes Absolute Auto 2.7 X10*3/uL (1.2-4.9); Lymphocytes Percent Auto 39.3 % (20-40); Mean Corpuscular HGB Conc 35.2 g/dl (31.0-36.0); Mean Corpuscular Hemoglobin 31.9 pg (27.0-33.0); Mean Corpuscular Volume 90.8 fL (80.0-98.0); Monocytes Absolute Auto 0.5 X10*3/uL (0.1-1.2); Monocytes Percent Auto 6.6 % (2-11); Neutrophils Absolute Auto 3.5 x10*3/uL (2.0-8.3); Neutrophils Percent Auto 50.5 % (45-73); Platelet Count 256 X10*3/uL (160-400); Red Blood Count 4.57 X10*6/uL (4.60-5.80); Red Cell Distribution Width 11.7 % (11.0-16.0); White Blood Count 6.8 X10*3/uL (4.8-10.8)
[2024-02-02 19:08] LABS: Alanine Aminotransferase 11 U/L (0-40); Albumin Level 4.9 g/dL (3.5-5.0); Alkaline Phosphatase 64 U/L (39-117); Anion Gap 15 (12-20); Aspartate Amino Transferase 15 U/L (5-37); Bilirubin Total 0.4 mg/dL (0.0-1.0); Blood Urea Nitrogen 11 mg/dL (9-16); Carbon Dioxide 25 mmol/L (22-29); Chloride 106 mmol/L (96-108); Creatinine Clr Calc Pharmacy 109.4; Estimated Glomerular Filt Rate > 60; Ethanol < 10 mg/dL; Glucose Random 94 mg/dL (60-115); Potassium 3.8 mmol/L (3.3-5.1); Sodium 142 mmol/L (135-145); Total Protein 7.9 g/dL (6.5-8.0)
[2024-02-02 19:22] LABS: COVID-19 Test Negative (Negative); IDNOW Serial# 152EDE1D
[2024-02-02 20:20] LABS: Bacteria Urine None Seen (None Seen); Hyaline Casts Urine 0-2 /LPF (0-2); RBC Urine 0-2 /HPF (0-2); Squamous Epithelial Cell Urine 0-2 /HPF (0-2); WBC Urine 0-5 /HPF (0-5)
[2024-02-02 20:26] LABS: Salicylate < 5.0 mg/dL (15-30)
[2024-02-02] MEDS: clonazePAM 0.5 MG TABLET PO (20:42)
[2024-02-02] MEDS: risperiDONE 0.5 MG TABLET PO (20:43)
[2024-02-02] MEDS: fluvoxaMINE Maleate 50 MG TABLET PO (20:43)
[2024-02-02 23:22] VITALS: BP 133/69; PULSE 63; RESP 16; TEMP 36.7; O2SAT 99
[2024-02-02 23:25] VITALS: BP 133/69
[2024-02-02] MEDS: traZODone HCL 50 MG TABLET PO (23:25)
[2024-02-02] MEDS: Loratadine 10 MG TABLET PO (23:25)
[2024-02-02] MEDS: cloNIDine HCL 0.1 MG TABLET PO (23:25)
--- NOTE | 2024-02-03 | ECG_ITS ---
Test Reason : Check for prolonged QTC Blood Pressure : / mmHG Vent. Rate : 068 BPM Atrial Rate : 068 BPM P-R Int : 156 ms QRS Dur : 088 ms QT Int : 408 ms P-R-T Axes : 008 071 069 degrees QTc Int : 433 ms Normal sinus rhythm Nonspecific ST and T wave abnormality Abnormal ECG When compared with ECG of 24-JUL-2023 20:34, No significant change was found Referred By: Tiff Tolbert Electronically Signed By:SANFORD JIM MD
--- NOTE | 2024-02-03 07:00 | PC.NURSE ---
Patient slept through the night, no distress observed/reported, disposition per care team is section 12 inpatient bed search, no behavior issues, will continue to monitor
--- NOTE | 2024-02-03 07:11 | PC.NURSE ---
Assumed care of patient at 0645. Patient is observed resting quietly in their bed. No signs of distress observed. Breathing is even and unlabored. Will continue plan of care.
[2024-02-03] MEDS: risperiDONE 0.5 MG TABLET PO ×3 (08:02→22:44)
[2024-02-03] MEDS: lamoTRIgine 100 MG TABLET 200 MG PO (08:02)
[2024-02-03] MEDS: metFORMIN HCl 500 MG TABLET PO (08:02)
[2024-02-03 09:39] VITALS: BP 104/65; PULSE 71; RESP 18; TEMP 36.6; O2SAT 96
[2024-02-03] MEDS: clonazePAM 0.5 MG TABLET PO (10:46)
[2024-02-03 13:02] VITALS: BP 110/78; PULSE 85; TEMP 36.7; O2SAT 99
[2024-02-03 13:13] LABS: MANUAL DIFF FLAG NO
[2024-02-03 13:15] LABS: Basophils Percent Auto 0.5 % (0-2); Eosinophils Absolute Auto 0.2 X10*3/uL (0.0-0.4); Eosinophils Percent Auto 3.8 % (0-4); Hematocrit 41.9 % (42.0-52.0); Hemoglobin 14.7 g/dl (14.0-18.0); Imm Gran Abs Auto 0.01 X10*3/uL (0.00-0.03); Imm Gran Pct Auto 0.2 % (0.0-0.4); Lymphocytes Absolute Auto 2.4 X10*3/uL (1.2-4.9); Lymphocytes Percent Auto 39.3 % (20-40); Mean Corpuscular HGB Conc 35.1 g/dl (31.0-36.0); Mean Corpuscular Volume 91.3 fL (80.0-98.0); Mean Platelet Volume 9.7 fL (9.4-12.4); Monocytes Absolute Auto 0.4 X10*3/uL (0.1-1.2); Neutrophils Absolute Auto 2.9 x10*3/uL (2.0-8.3); Neutrophils Percent Auto 49.2 % (45-73); Platelet Count 251 X10*3/uL (160-400); Red Blood Count 4.59 X10*6/uL (4.60-5.80); Red Cell Distribution Width 11.8 % (11.0-16.0)
--- NOTE | 2024-02-03 14:11 | PHA.MEDREC ---
Pharmacy Consult ? Medication Reconciliation Pharmacy has reviewed the medication reconciliation completed by nursing.
[2024-02-03 17:00] VITALS: BP 132/77; PULSE 66; RESP 18; TEMP 36.2; O2SAT 100; BMI 23.0
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
[2024-02-03 20:00] VITALS: BP 143/87; PULSE 70; RESP 16; TEMP 36.9; O2SAT 99
[2024-02-03] MEDS: cloNIDine HCL 0.1 MG TABLET PO (21:51)
[2024-02-03] MEDS: traZODone HCL 50 MG TABLET PO (22:44)
[2024-02-03] MEDS: Loratadine 10 MG TABLET PO (22:44)
[2024-02-03] MEDS: fluvoxaMINE Maleate 50 MG TABLET PO (22:44)
[2024-02-04 08:00] VITALS: BP 121/70; PULSE 62; RESP 18; TEMP 36.3; O2SAT 98
[2024-02-04] MEDS: metFORMIN HCl 500 MG TABLET PO (09:32)
[2024-02-04] MEDS: lamoTRIgine 100 MG TABLET 200 MG PO (09:32)
[2024-02-04] MEDS: risperiDONE 0.5 MG TABLET PO ×3 (09:32→23:08)
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
[2024-02-04] MEDS: cloNIDine HCL 0.1 MG TABLET PO ×2 (11:34→19:51)
[2024-02-04 20:00] VITALS: BP 118/59; PULSE 62; TEMP 36.3; O2SAT 97
[2024-02-04] MEDS: clonazePAM 0.5 MG TABLET PO (21:51)
[2024-02-04] MEDS: traZODone HCL 50 MG TABLET PO (23:07)
[2024-02-04] MEDS: Loratadine 10 MG TABLET PO (23:07)
[2024-02-04] MEDS: fluvoxaMINE Maleate 50 MG TABLET 100 MG PO (23:07)
[2024-02-04] MEDS: hydrOXYzine HCL 25 MG TABLET PO (23:09)
[2024-02-05 07:30] VITALS: BP 119/56; PULSE 106; RESP 16; TEMP 36.7; O2SAT 98
[2024-02-05 08:47] LABS: Estimated Average Glucose 103 mg/dL; Hemoglobin A1c % 5.2 % (<6.0)
[2024-02-05 09:02] LABS: Cholesterol 151 mg/dL (<200); HDL Cholesterol 37 mg/dL (>40); Iron 143 mcg/dL (45-160); LDL Cholesterol Calculated 94 mg/dL (<100); Percent Iron Saturation 48 % (15-50); Total Iron Binding Capacity 297 mcg/dL (228-428); Triglycerides 101 mg/dL (<150); Unsaturated Iron Binding 154 ug/dL
[2024-02-05] MEDS: metFORMIN HCl 500 MG TABLET PO (09:10)
[2024-02-05] MEDS: lamoTRIgine 100 MG TABLET 200 MG PO (09:10)
[2024-02-05] MEDS: risperiDONE 0.5 MG TABLET PO ×2 (09:12→23:10)
[2024-02-05] MEDS: Acetaminophen 325 MG TABLET 650 MG PO (09:12)
--- NOTE | 2024-02-05 09:20 | P.PNPSI_ITS ---
Subjective Subjective Date of Service: 02/05/24 Reason For Visit: PTSD, depression, AUD, SI Interim History: met with patient; discussed with team last night, pt dysregulated, tore his shirt; said could not sleep since did not have his music. He reports continued AH of people yelling things (people he knows) and that when he's alone, he sees images of people from his past... SI remains but is passive. Denies side-effects from increased Fluvoxamine. Patients mother Philly present; she expressed serious concern that patient has not yet had access to his earbuds/music; she says without it he will remain stuck and not be able to progress...he's used it all his life and it is a need, not a want explaining that it is a part of his prescribed neurological stimulation coping strategy, established by specialist. Mental Status Exam Mental Status Exam Narrative: Pt is alert and oriented; behavior is cooperative and calm but moving slowly and talking softly, wide-eyed; patient is not in distress; dressed in casual attire with unkempt hair but adequate hygiene; mood is described as depressed... Anxious and affect congruent, a little blunted; eye contact appropriate; Speech soft, slowed; psychomotor retardation present; thought process is organized and goal directed; Thought content is on struggling with anxiety, depression, tx; otherwise pertinent to relevant topics and without any delusional content, paranoid ideations or grandiosity; continued intermittent SI; no HI. Patient reports intermittent AH of people yelling. Patients insight and judgment impaired Diagnostics Vital Signs (24Hr): Vital Signs - 24 hr 02/04/24 20:00 Temperature 97.4 F Pulse Rate 62 Blood Pressure 118/59 L Pulse Oximetry 97 Oxygen Delivery Method Room Air BMI result Body Mass Index 23.0 Labs 02/03/24 13:08 02/02/24 18:42 Labs: Laboratory Results - last 48 hr 02/03/24 02/05/24 13:08 08:20 WBC 6.0 RBC 4.59 L Hgb 14.7 Hct 41.9 L MCV 91.3 MCH 32.0 MCHC 35.1 RDW 11.8 Plt Count 251 MPV 9.7 Immature Gran % (Auto) 0.2 Neut % (Auto) 49.2 Lymph % (Auto) 39.3 [place] % (Auto) 7.0 Eos % (Auto) 3.8 Baso % (Auto) 0.5 Lymph # (Auto) 2.4 [place] # (Auto) 0.4 Eos # (Auto) 0.2 Baso # (Auto) 0.0 Abs Immat Gran (auto) 0.01 Absolute Neuts (auto) 2.9 Absolute Nucleated RBC 0.000 Nucleated RBC % (auto) 0.0 Estimat Average Glucose 103 Hemoglobin A1c % 5.2 Magnesium 2.0 Iron 143 TIBC 297 % Saturation 48 Unsat Iron Binding 154 Triglycerides 101 Cholesterol 151 LDL Cholesterol, Calc 94 HDL Cholesterol 37 L TSH 0.80 Free T4 1.00 Medications Medications Current Medications Acetaminophen (Acetaminophen 325 Mg Tablet) 650 mg PO Q6H PRN PRN Reason: Headache/Pain Mild Scale (1-3) Last Admin: 02/05/24 09:12 Dose: 650 mg Al Hydroxide/Mg Hydroxide (Magnesium Hydrox/Alum Hydrox 30 Ml Oral.Susp) 30 ml PO Q6H PRN PRN Reason: Heartburn/Nausea Clonazepam (Clonazepam 0.5 Mg Tablet) 0.5 mg PO BID PRN PRN Reason: as directed Last Admin: 02/04/24 21:51 Dose: 0.5 mg Clonidine HCl (Clonidine Hcl 0.1 Mg Tablet) 0.1 mg PO BID PRN; Protocol PRN Reason: Anxiety Last Admin: 02/04/24 19:51 Dose: 0.1 mg Fluvoxamine Maleate (Fluvoxamine Maleate 50 Mg Tablet) 100 mg PO BEDTIME ALAN Last Admin: 02/04/24 23:07 Dose: 100 mg Hydroxyzine HCl (Hydroxyzine Hcl 25 Mg Tablet) 25 mg PO Q6H PRN PRN Reason: anxiety Last Admin: 02/04/24 23:09 Dose: 25 mg Lamotrigine (Lamotrigine 100 Mg Tablet) 200 mg PO DAILY [facility] Last Admin: 02/05/24 09:10 Dose: 200 mg Loratadine (Loratadine 10 Mg Tablet) 10 mg PO BEDTIME PRN PRN Reason: allergies Last Admin: 02/04/24 23:07 Dose: 10 mg Magnesium Hydroxide (Milk Of Magnesia 30 Ml Oral.Susp) 30 ml PO DAILY PRN PRN Reason: Constipation Metformin HCl (Metformin Hcl 500 Mg Tablet) 500 mg PO DAILY [facility] Last Admin: 02/05/24 09:10 Dose: 500 mg Risperidone (Risperidone 0.5 Mg Tablet) 0.5 mg PO TID ALAN Last Admin: 02/05/24 09:12 Dose: 0.5 mg Trazodone HCl (Trazodone Hcl 50 Mg Tablet) 50 mg PO BEDTIME PRN PRN Reason: insomnia Last Admin: 02/04/24 23:07 Dose: 50 mg Allergies Allergies Allergy/AdvReac Type Severity Reaction Status Date / Time peanut [PEANUT] Allergy Severe ANAPHYLAXIS Verified 02/02/24 18:10 Assessment & Plan Assessment & Plan (1) MDD (major depressive disorder), recurrent episode, severe: Qualifiers: Psychotic features: with psychotic features Qualified Code(s): F33.3 - Major depressive disorder, recurrent, severe with psychotic symptoms Status: Acute Code(s): F33.2 - Major depressive disorder, recurrent severe without psychotic features (2) Complex posttraumatic stress disorder: Status: Acute Code(s): F43.10 - Post-traumatic stress disorder, unspecified (3) Autism spectrum disorder: Status: Acute Code(s): F84.0 - Autistic disorder (4) OCD (obsessive compulsive disorder): Qualifiers: Obsessive-compulsive disorder type: unspecified Qualified Code(s): F 42.9 - Obsessive-compulsive disorder, unspecified Status: Acute Code(s): F42.9 - Obsessive-compulsive disorder, unspecified (5) Chronic post-traumatic stress disorder (PTSD): Status: Acute Code(s): F43.12 - Post-traumatic stress disorder, chronic Plan Patient is a 22-year-old male with history of ASD, PTSD, depression, chronic SI and emotional reactivity who presents with worsening depression, increasing SI and now superficial self-harm, in the face of increased emotional dysregulated triggered by parents pending divorce. Patient reports that after discharge from last March 2023, he was doing overall better but depression and intermittent, chronic SI remained. He went to 2 partial programs, most recently this past September 2023 where he was started on Risperdal which helped keep auditory hallucinations lower. This lasted for few weeks but in December, when he learned parents were getting , depression and then AH increased despite Risperdal dose also being increased. Patient reports that chronic SI significantly increased and where it is typically fleeting now became ever present. He has not sure if he made plans are not. This past week his depression, anxiety SI further increased and for the 1st time he superficially self harmed by cutting his arms in an attempt to distract himself from his feelings. This past week patient said I saw something a few nights ago that made me want to... Patient said he has not comfortable saying what he saw at this time but it was upsetting enough that made him know he needed to come to the hospital. Patient is open to medication management. Formulation/clinical reasoning: It seems that post discharge, patient's medication regimen was mild to moderately helpful and he was able stay at the hospital but depression and SI remained. He continues with therapy though says he has not fully open up yet. At this time it is not clear they quality of AH; patient not diagnosed with psychotic illness; will need to explore further. It appears patient has remained on a starting dose of fluvoxamine 50 mg; he is amenable to increasing this dose. Also discussed lithium, risks/side effects which he is open to. -patient has autism Allowed to use own Headphones 15/04 including during sleep (allowed last admission); plan will be for patient to receive Headphones from home to download music from iPhone (Iphone and headphone candy wrapping machine operator to be kept at nurse's station); patient can request music changes; cleared with administration Patient explains that he damián with his autism by listening to specific music, almost consistently throughout the day and night. Patient has specific albums on his phone that he listens to to help him cope through specific activities. He says that without it he has a very hard time thinking clearly or even talking with this health underwriter. Patient's mother Philly corroborates that patient has been utilizing this coping strategy since young childhood and that for his entire life time they have carried around CDs which he listens to near continuously and without, quickly gets emotionally dysregulated. Philly explains that as a part of his IEP in school, he was allowed to use his ear phone/music even while taking tests. She corroborates that Without it patient has a hard time eating and is unable to sleep. Hospital course: 02/04 patient remains very anxious and depressed and feels he is struggling without access to his specific music coping skill; team working on procuring this. Mother adamant about access. Although depressed No SI other than passive which is chronic -reports little sleep since no music; difficult for him to eat for same reason He also endorses auditory hallucinations however these consist of the voices of specific people in his life, saying specific things they actually said to him in the past, though always negative; AVH remains most likely due to PTSD, trauma history and not organic psychotic illness.. PLAN: CV Q 15 minute checks Increased fluvoxamine 100 mg q.h.s. Continue Risperdal 0.5 mg t.i.d. Continue Lamictal 200 mg daily Continue metformin 500 mg daily Of note, patient got S ketamine a few times in October but it made no difference Patient educated on: diagnosis, medication risk/benefits and therapeutic strategies Informed Consent: understands Reason for continued inpatient stay Substantial Risk for: inability to function Time Spent With Patient Time: Total time managing care of this patient today ____ minutes.
[2024-02-05 09:30] LABS: Folate 13.1 ng/mL (> or = 4.0); Vitamin B12 1152 pg/mL (200-900)
[2024-02-05 16:14] VITALS: BP 121/69
[2024-02-05] MEDS: cloNIDine HCL 0.1 MG TABLET PO ×2 (16:14→21:04)
[2024-02-05 20:00] VITALS: BP 142/65; PULSE 68; TEMP 35.9; O2SAT 100
[2024-02-05] MEDS: fluvoxaMINE Maleate 50 MG TABLET 100 MG PO (23:09)
[2024-02-06] MEDS: Loratadine 10 MG TABLET PO (00:11)
[2024-02-06] MEDS: traZODone HCL 50 MG TABLET PO ×2 (00:11→23:35)
[2024-02-06] MEDS: hydrOXYzine HCL 25 MG TABLET PO ×3 (00:11→23:35)
[2024-02-06 07:00] VITALS: BMI 23.2
[2024-02-06 07:30] VITALS: BP 105/57; PULSE 112; RESP 16; TEMP 36.5; O2SAT 97
[2024-02-06] MEDS: metFORMIN HCl 500 MG TABLET PO (08:51)
[2024-02-06] MEDS: risperiDONE 0.5 MG TABLET PO ×3 (08:51→23:31)
[2024-02-06] MEDS: lamoTRIgine 100 MG TABLET 200 MG PO (08:51)
[2024-02-06] MEDS: clonazePAM 0.5 MG TABLET PO (12:19)
[2024-02-06] MEDS: cloNIDine HCL 0.1 MG TABLET PO ×2 (15:06→21:22)
--- NOTE | 2024-02-06 17:04 | HO.PSYCHPN ---
Subjective Subjective Date of Service: 02/06/24 Reason For Visit: PTSD, depression, AUD, SI Interim History: Met with patient; discussed with team Initially patient very anxious, moving and talking slowly; however later in the day patient reports considerable relief knowing that he will soon get access to music; finds that headphones that can download his music is adequate. SI remains passive. Intermittent AH; Remains with much difficulty sleeping and eating. Patient frustrated with accidental change in food brought up from the kitchen but redirectable Mental Status Exam Mental Status Exam Narrative: Pt is alert and oriented; behavior is cooperative and calm but moving slowly and talking softly, wide-eyed; patient is not in distress; dressed in casual attire with unkempt hair but adequate hygiene; mood is described as depressed... Anxious and affect congruent, a little blunted; eye contact appropriate; Speech soft, slowed; psychomotor retardation present; thought process is concrete but also organized and goal directed; Thought content is on struggling with anxiety, depression, tx; otherwise pertinent to relevant topics and without any delusional content, paranoid ideations or grandiosity; continued intermittent SI; no HI. Patient reports intermittent AH of people yelling. Patients insight and judgment impaired Diagnostics Vital Signs (24Hr): Vital Signs - 24 hr 02/05/24 20:00 02/06/24 07:30 Temperature 96.6 F L 97.7 F Pulse Rate 68 112 H Respiratory Rate 16 Blood Pressure 142/65 H 105/57 L Pulse Oximetry 100 97 Oxygen Delivery Method Room Air Room Air BMI result Body Mass Index 23.2 Labs 02/03/24 13:08 02/02/24 18:42 Labs: Laboratory Results - last 48 hr 02/05/24 08:20 Estimat Average Glucose 103 Hemoglobin A1c % 5.2 Magnesium 2.0 Iron 143 TIBC 297 % Saturation 48 Unsat Iron Binding 154 Triglycerides 101 Cholesterol 151 LDL Cholesterol, Calc 94 HDL Cholesterol 37 L Vitamin B12 1152 H Folate 13.1 TSH 0.80 Free T4 1.00 Medications Medications Current Medications Acetaminophen (Acetaminophen 325 Mg Tablet) 650 mg PO Q6H PRN PRN Reason: Headache/Pain Mild Scale (1-3) Last Admin: 02/05/24 09:12 Dose: 650 mg Al Hydroxide/Mg Hydroxide (Magnesium Hydrox/Alum Hydrox 30 Ml Oral.Susp) 30 ml PO Q6H PRN PRN Reason: Heartburn/Nausea Clonazepam (Clonazepam 0.5 Mg Tablet) 0.5 mg PO BID PRN PRN Reason: as directed Last Admin: 02/06/24 12:19 Dose: 0.5 mg Clonidine HCl (Clonidine Hcl 0.1 Mg Tablet) 0.1 mg PO BID PRN; Protocol PRN Reason: Anxiety Last Admin: 02/06/24 15:06 Dose: 0.1 mg Fluvoxamine Maleate (Fluvoxamine Maleate 50 Mg Tablet) 100 mg PO BEDTIME [facility] Last Admin: 02/05/24 23:09 Dose: 100 mg Hydroxyzine HCl (Hydroxyzine Hcl 25 Mg Tablet) 25 mg PO Q6H PRN PRN Reason: anxiety Last Admin: 02/06/24 12:19 Dose: 25 mg Lamotrigine (Lamotrigine 100 Mg Tablet) 200 mg PO DAILY [facility] Last Admin: 02/06/24 08:51 Dose: 200 mg Loratadine (Loratadine 10 Mg Tablet) 10 mg PO BEDTIME PRN PRN Reason: allergies Last Admin: 02/06/24 00:11 Dose: 10 mg Magnesium Hydroxide (Milk Of Magnesia 30 Ml Oral.Susp) 30 ml PO DAILY PRN PRN Reason: Constipation Metformin HCl (Metformin Hcl 500 Mg Tablet) 500 mg PO DAILY [facility] Last Admin: 02/06/24 08:51 Dose: 500 mg Risperidone (Risperidone 0.5 Mg Tablet) 0.5 mg PO TID [facility] Last Admin: 02/06/24 14:39 Dose: 0.5 mg Trazodone HCl (Trazodone Hcl 50 Mg Tablet) 50 mg PO BEDTIME PRN PRN Reason: insomnia Last Admin: 02/06/24 00:11 Dose: 50 mg Allergies Allergies Allergy/AdvReac Type Severity Reaction Status Date / Time peanut [PEANUT] Allergy Severe ANAPHYLAXIS Verified 02/02/24 18:10 Assessment & Plan Assessment & Plan (1) MDD (major depressive disorder), recurrent episode, severe: Qualifiers: Psychotic features: with psychotic features Qualified Code(s): F33.3 - Major depressive disorder, recurrent, severe with psychotic symptoms Status: Acute Code(s): F33.2 - Major depressive disorder, recurrent severe without psychotic features (2) Complex posttraumatic stress disorder: Status: Acute Code(s): F43.10 - Post-traumatic stress disorder, unspecified (3) Autism spectrum disorder: Status: Acute Code(s): F84.0 - Autistic disorder (4) OCD (obsessive compulsive disorder): Qualifiers: Obsessive-compulsive disorder type: unspecified Qualified Code(s): F42.9 - Obsessive-compulsive disorder, unspecified Status: Acute Code(s): F42.9 - Obsessive-compulsive disorder, unspecified (5) Chronic post-traumatic stress disorder (PTSD): Status: Acute Code(s): F43.12 - Post-traumatic stress disorder, chronic Plan Patient is a 22-year-old male with history of ASD, PTSD, depression, chronic SI and emotional reactivity who presents with worsening depression, increasing SI and now superficial self-harm, in the face of increased emotional dysregulated triggered by parents pending divorce. Patient reports that after discharge from last March 2023, he was doing overall better but depression and intermittent, chronic SI remained. He went to 2 partial programs, most recently this past September 2023 where he was started on Risperdal which helped keep auditory hallucinations lower. This lasted for few weeks but in December, when he learned parents were getting , depression and then AH increased despite Risperdal dose also being increased. Patient reports that chronic SI significantly increased and where it is typically fleeting now became ever present. He has not sure if he made plans are not. This past week his depression, anxiety SI further increased and for the 1st time he superficially self harmed by cutting his arms in an attempt to distract himself from his feelings. This past week patient said I saw something a few nights ago that made me want to... Patient said he has not comfortable saying what he saw at this time but it was upsetting enough that made him know he needed to come to the hospital. Patient is open to medication management. Formulation/clinical reasoning: It seems that post discharge, patient's medication regimen was mild to moderately helpful and he was able stay at the hospital but depression and SI remained. He continues with therapy though says he has not fully open up yet. At this time it is not clear they quality of AH; patient not diagnosed with psychotic illness; will need to explore further. It appears patient has remained on a starting dose of fluvoxamine 50 mg; he is amenable to increasing this dose. Also discussed lithium, risks/side effects which he is open to. -patient has autism Allowed to use own Headphones 15/04 including during sleep (allowed last admission); plan will be for patient to receive Headphones from home to download music from iPhone (Iphone and headphone global commodity manager to be kept at nurse's station); patient can request music changes; cleared with administration Patient explains that he damián with his autism by listening to specific music, almost consistently throughout the day and night. Patient has specific albums on his phone that he listens to to help him cope through specific activities. He says that without it he has a very hard time thinking clearly or even talking with this ghost writer. Patient's mother Philly corroborates that patient has been utilizing this coping strategy since young childhood and that for his entire life time they have carried around CDs which he listens to near continuously and without, quickly gets emotionally dysregulated. Philly explains that as a part of his IEP in school, he was allowed to use his ear phone/music even while taking tests. She corroborates that Without it patient has a hard time eating and is unable to sleep. Hospital course: 02/04 patient remains very anxious and depressed and feels he is struggling without access to his specific music coping skill; team working on procuring this. Mother adamant about access. Although depressed No SI other than passive which is chronic -reports little sleep since no music; difficult for him to eat for same reason He also endorses auditory hallucinations however these consist of the voices of specific people in his life, saying specific things they actually said to him in the past, though always negative; AVH remains most likely due to PTSD, trauma history and not organic psychotic illness. 02/05 Initially patient very anxious, moving and talking slowly; however later in the day patient reports considerable relief knowing that he will soon get access to music; finds that headphones that can download his music is adequate. SI remains passive. Intermittent AH; Remains with much difficulty sleeping and eating. Patient frustrated with accidental change in food brought up from the kitchen but redirectable -it is ghost writer's opinion (following rec of ASD specialist) that patient requires his very specific music selection, which he has been using for years in order to calm down his anxiety and reduce over-stimulation and ASD symptoms; without much difficulty sleeping and eating. Hopefully this will be remedied soon PLAN: CV Q 15 minute checks Increased fluvoxamine 100 mg q.h.s. Continue Risperdal 0.5 mg t.i.d. Continue Lamictal 200 mg daily Continue metformin 500 mg daily Of note, patient got S ketamine a few times in October but it made no difference Patient educated on: diagnosis, medication risk/benefits and therapeutic strategies Informed Consent: understands Reason for continued inpatient stay Substantial Risk for: inability to function Time Spent With Patient Time: Total time managing care of this patient today ____ minutes.
[2024-02-06 21:22] VITALS: BP 107/55; PULSE 74; RESP 16; TEMP 36.7; O2SAT 99
[2024-02-06] MEDS: fluvoxaMINE Maleate 50 MG TABLET 100 MG PO (23:31)
[2024-02-07 08:00] VITALS: BP 109/60; PULSE 73; RESP 18; TEMP 36.6; O2SAT 98
--- NOTE | 2024-02-07 10:53 | HO.PSYCHPN ---
Subjective Subjective Date of Service: 02/07/24 Reason For Visit: PTSD, depression, AUD, SI Interim History: Met with patient; discussed with team Patient said that he is overall coping without his music. He says though it is difficult he has been able to get food down; however says it is very hard to fall and stay asleep. Also hard to articulate his thoughts and though he is able to talk with people, feels he can not really organize his thoughts to have a real conversation or share what he is thinking about his feelings. He remains hopeful forgetting access to music soon. AH remains and is quite bothersome. Mental Status Exam Mental Status Exam Narrative: Pt is alert and oriented; behavior is cooperative and calm but moving slowly and talking softly, wide-eyed; patient is not in distress; dressed in casual attire with unkempt hair but adequate hygiene; mood is described as depressed... Anxious and affect congruent, a little blunted; eye contact appropriate; Speech soft, slowed; psychomotor retardation present; thought process is concrete but also organized and goal directed; Thought content is on struggling with anxiety, depression, tx; otherwise pertinent to relevant topics and without any delusional content, paranoid ideations or grandiosity; continued intermittent SI but only passive; no HI. Patient reports intermittent AH of people yelling. Patients insight and judgment impaired but improving Diagnostics Vital Signs (24Hr): Vital Signs - 24 hr 02/06/24 21:22 02/06/24 21:22 Temperature 98.1 F Pulse Rate 74 Respiratory Rate 16 Blood Pressure 107/55 L 107/55 L Pulse Oximetry 99 Oxygen Delivery Method Room Air BMI result Body Mass Index 23.2 Labs 02/03/24 13:08 02/02/24 18:42 Medications Medications Current Medications Acetaminophen (Acetaminophen 325 Mg Tablet) 650 mg PO Q6H PRN PRN Reason: Headache/Pain Mild Scale (1-3) Last Admin: 02/05/24 09:12 Dose: 650 mg Al Hydroxide/Mg Hydroxide (Magnesium Hydrox/Alum Hydrox 30 Ml Oral.Susp) 30 ml PO Q6H PRN PRN Reason: Heartburn/Nausea Clonazepam (Clonazepam 0.5 Mg Tablet) 0.5 mg PO BID PRN PRN Reason: as directed Last Admin: 02/06/24 12:19 Dose: 0.5 mg Clonidine HCl (Clonidine Hcl 0.1 Mg Tablet) 0.1 mg PO BID PRN; Protocol PRN Reason: Anxiety Last Admin: 02/06/24 21:22 Dose: 0.1 mg Fluvoxamine Maleate (Fluvoxamine Maleate 50 Mg Tablet) 100 mg PO BEDTIME [facility] Last Admin: 02/06/24 23:31 Dose: 100 mg Hydroxyzine HCl (Hydroxyzine Hcl 25 Mg Tablet) 25 mg PO Q6H PRN PRN Reason: anxiety Last Admin: 02/06/24 23:35 Dose: 25 mg Lamotrigine (Lamotrigine 100 Mg Tablet) 200 mg PO DAILY [facility] Last Admin: 02/06/24 08:51 Dose: 200 mg Loratadine (Loratadine 10 Mg Tablet) 10 mg PO BEDTIME PRN PRN Reason: allergies Last Admin: 02/06/24 00:11 Dose: 10 mg Magnesium Hydroxide (Milk Of Magnesia 30 Ml Oral.Susp) 30 ml PO DAILY PRN PRN Reason: Constipation Metformin HCl (Metformin Hcl 500 Mg Tablet) 500 mg PO DAILY [facility] Last Admin: 02/06/24 08:51 Dose: 500 mg Risperidone (Risperidone 0.5 Mg Tablet) 0.5 mg PO TID [facility] Last Admin: 02/06/24 23:31 Dose: 0.5 mg Trazodone HCl (Trazodone Hcl 50 Mg Tablet) 50 mg PO BEDTIME PRN PRN Reason: insomnia Last Admin: 02/06/24 23:35 Dose: 50 mg Allergies Allergies Allergy/AdvReac Type Severity Reaction Status Date / Time peanut [PEANUT] Allergy Severe ANAPHYLAXIS Verified 02/02/24 18:10 Assessment & Plan Assessment & Plan (1) MDD (major depressive disorder), recurrent episode, severe: Qualifiers: Psychotic features: with psychotic features Qualified Code(s): F33.3 - Major depressive disorder, recurrent, severe with psychotic symptoms Status: Acute Code(s): F33.2 - Major depressive disorder, recurrent severe without psychotic features (2) Complex posttraumatic stress disorder: Status: Acute Code(s): F43.10 - Post-traumatic stress disorder, unspecified (3) Autism spectrum disorder: Status: Acute Code(s): F84.0 - Autistic disorder (4) OCD (obsessive compulsive disorder): Qualifiers: Obsessive-compulsive disorder type: unspecified Qualified Code(s): F42.9 - Obsessive-compulsive disorder, unspecified Status: Acute Code(s): F42.9 - Obsessive-compulsive disorder, unspecified (5) Chronic post-traumatic stress disorder (PTSD): Status: Acute Code(s): F43.12 - Post-traumatic stress disorder, chronic Plan Patient is a 22-year-old male with history of ASD, PTSD, depression, chronic SI and emotional reactivity who presents with worsening depression, increasing SI and now superficial self-harm, in the face of increased emotional dysregulated triggered by parents pending divorce. Patient reports that after discharge from last March 2023, he was doing overall better but depression and intermittent, chronic SI remained. He went to 2 partial programs, most recently this past September 2023 where he was started on Risperdal which helped keep auditory hallucinations lower. This lasted for few weeks but in December, when he learned parents were getting , depression and then AH increased despite Risperdal dose also being increased. Patient reports that chronic SI significantly increased and where it is typically fleeting now became ever present. He has not sure if he made plans are not. This past week his depression, anxiety SI further increased and for the 1st time he superficially self harmed by cutting his arms in an attempt to distract himself from his feelings. This past week patient said I saw something a few nights ago that made me want to... Patient said he has not comfortable saying what he saw at this time but it was upsetting enough that made him know he needed to come to the hospital. Patient is open to medication management. Formulation/clinical reasoning: It seems that post discharge, patient's medication regimen was mild to moderately helpful and he was able stay at the hospital but depression and SI remained. He continues with therapy though says he has not fully open up yet. At this time it is not clear they quality of AH; patient not diagnosed with psychotic illness; will need to explore further. It appears patient has remained on a starting dose of fluvoxamine 50 mg; he is amenable to increasing this dose. Also discussed lithium, risks/side effects which he is open to. -patient has autism Allowed to use own Headphones 24/7 including during sleep (allowed last admission); plan will be for patient to receive Headphones from home to download music from [facility] (Iphone and headphone social worker to be kept at nurse's station); patient can request music changes; cleared with administration Patient explains that he damián with his autism by listening to specific music, almost consistently throughout the day and night. Patient has specific albums on his phone that he listens to to help him cope through specific activities. He says that without it he has a very hard time thinking clearly or even talking with this justowriter operator. Patient's mother Philly corroborates that patient has been utilizing this coping strategy since young childhood and that for his entire life time they have carried around CDs which he listens to near continuously and without, quickly gets emotionally dysregulated. Philly explains that as a part of his IEP in school, he was allowed to use his ear phone/music even while taking tests. She corroborates that Without it patient has a hard time eating and is unable to sleep. Hospital course: 02/04 patient remains very anxious and depressed and feels he is struggling without access to his specific music coping skill; team working on procuring this. Mother adamant about access. Although depressed No SI other than passive which is chronic -reports little sleep since no music; difficult for him to eat for same reason He also endorses auditory hallucinations however these consist of the voices of specific people in his life, saying specific things they actually said to him in the past, though always negative; AVH remains most likely due to PTSD, trauma history and not organic psychotic illness. 02/05 Initially patient very anxious, moving and talking slowly; however later in the day patient reports considerable relief knowing that he will soon get access to music; finds that headphones that can download his music is adequate. SI remains passive. Intermittent AH; Remains with much difficulty sleeping and eating. Patient frustrated with accidental change in food brought up from the kitchen but redirectable -it is justowriter operator's opinion (following rec of ASD specialist) that patient requires his very specific music selection, which he has been using for years in order to calm down his anxiety and reduce over-stimulation and ASD symptoms; without much difficulty sleeping and eating. Hopefully this will be remedied soon 02/06 Patient said that he is overall coping without his music. He says though it is difficult he has been able to get food down; however says it is very hard to fall and stay asleep. Also hard to articulate his thoughts and though he is able to talk with people, feels he can not really organize his thoughts to have a real conversation or share what he is thinking about his feelings. He remains hopeful forgetting access to music soon. AH remains and is quite bothersome. PLAN: CV Q 15 minute checks Increased fluvoxamine 100 mg q.h.s. Continue Risperdal 0.5 mg t.i.d. Continue Lamictal 200 mg daily Continue metformin 500 mg daily Of note, patient got S ketamine a few times in October but it made no difference Patient educated on: diagnosis, medication risk/benefits and therapeutic strategies Informed Consent: understands Reason for continued inpatient stay Substantial Risk for: inability to function Time Spent With Patient Time: Total time managing care of this patient today ____ minutes.
[2024-02-07] MEDS: lamoTRIgine 100 MG TABLET 200 MG PO (11:41)
[2024-02-07] MEDS: metFORMIN HCl 500 MG TABLET PO (11:41)
[2024-02-07] MEDS: risperiDONE 0.5 MG TABLET PO ×3 (11:42→22:24)
[2024-02-07] MEDS: clonazePAM 0.5 MG TABLET PO (19:22)
[2024-02-07 20:00] VITALS: BP 121/71; PULSE 78; RESP 17; TEMP 37.3; O2SAT 96
[2024-02-07] MEDS: hydrOXYzine HCL 25 MG TABLET PO (22:24)
[2024-02-07] MEDS: traZODone HCL 50 MG TABLET PO (22:24)
[2024-02-07] MEDS: fluvoxaMINE Maleate 50 MG TABLET 100 MG PO (22:24)
[2024-02-07 22:29] VITALS: BP 121/71
[2024-02-07] MEDS: cloNIDine HCL 0.1 MG TABLET PO (22:29)
[2024-02-08 08:00] VITALS: BP 107/57; PULSE 56; RESP 18; TEMP 36.8; O2SAT 97
[2024-02-08] MEDS: risperiDONE 0.5 MG TABLET PO ×3 (09:11→23:05)
[2024-02-08] MEDS: lamoTRIgine 100 MG TABLET 200 MG PO (09:11)
[2024-02-08] MEDS: metFORMIN HCl 500 MG TABLET PO (09:12)
--- NOTE | 2024-02-08 11:54 | PC.NURSE ---
Александр has approved personal SD/FM headphones with 2 SD cards in his room with him. Headphone case with charging cord and plug in belongings closet -in clear plastic belongings bag.
[2024-02-08 18:45] VITALS: BP 130/74
[2024-02-08] MEDS: cloNIDine HCL 0.1 MG TABLET PO (18:45)
[2024-02-08 20:00] VITALS: BP 130/74; PULSE 73; RESP 16; TEMP 36.6; O2SAT 98
[2024-02-08] MEDS: clonazePAM 0.5 MG TABLET PO (22:23)
[2024-02-08] MEDS: fluvoxaMINE Maleate 50 MG TABLET 100 MG PO (23:05)
[2024-02-08] MEDS: hydrOXYzine HCL 25 MG TABLET PO (23:05)
[2024-02-08] MEDS: traZODone HCL 50 MG TABLET PO (23:05)
[2024-02-09 08:00] VITALS: BP 116/70; PULSE 68; RESP 16; TEMP 36.6; O2SAT 100
[2024-02-09 08:30] LABS: Creatinine Clr Calc Pharmacy 98.4; Estimated Glomerular Filt Rate > 60
[2024-02-09] MEDS: risperiDONE 0.5 MG TABLET PO ×3 (08:59→23:41)
[2024-02-09] MEDS: lamoTRIgine 100 MG TABLET 200 MG PO (08:59)
[2024-02-09] MEDS: metFORMIN HCl 500 MG TABLET PO (08:59)
--- NOTE | 2024-02-09 10:38 | P.PNPSI_ITS ---
Subjective Subjective Date of Service: 02/08/24 Reason For Visit: PTSD, depression, AUD, SI Interim History: Late entry note for patient seen on 02/07; discussed with team Patient says doing better now that he has is music. Smiling in the milieu, able to eat and drink better. Feels that now with this imperative coping tool he will be able to better assess if fluvoxamine is helping which he thinks it is Mental Status Exam Mental Status Exam Narrative: Pt is alert and oriented; behavior is cooperative and calm, talking more freely; patient is not in distress; dressed in casual attire with but adequate hygiene; mood is described as okay and affect congruent, more calm, a little brighter; eye contact appropriate; Speech still a little delayed but not as much; less psychomotor retardation present; thought process is concrete but also organized and goal directed; Thought content is on struggling with anxiety, depression, tx; otherwise pertinent to relevant topics and without any delusional content, paranoid ideations or grandiosity; continued intermittent SI but only passive; no HI. Patient reports intermittent AH of people yelling. Patients insight and judgment impaired but improving Diagnostics Vital Signs (24Hr): Vital Signs - 24 hr 02/08/24 18:45 02/08/24 20:00 Temperature 97.8 F Pulse Rate 73 Respiratory Rate 16 Blood Pressure 130/74 130/74 Pulse Oximetry 98 Oxygen Delivery Method Room Air BMI result Body Mass Index 23.2 Labs 02/03/24 13:08 02/09/24 08:05 Labs: Laboratory Results - last 48 hr 02/09/24 08:05 Creatinine 1.10 Estim Creat Clear Calc 98.4 Estimated GFR > 60 Medications Medications Current Medications Acetaminophen (Acetaminophen 325 Mg Tablet) 650 mg PO Q6H PRN PRN Reason: Headache/Pain Mild Scale (1-3) Last Admin: 02/05/24 09:12 Dose: 650 mg Al Hydroxide/Mg Hydroxide (Magnesium Hydrox/Alum Hydrox 30 Ml Oral.Susp) 30 ml PO Q6H PRN PRN Reason: Heartburn/Nausea Clonazepam (Clonazepam 0.5 Mg Tablet) 0.5 mg PO BID PRN PRN Reason: as directed Last Admin: 02/08/24 22:23 Dose: 0.5 mg Clonidine HCl (Clonidine Hcl 0.1 Mg Tablet) 0.1 mg PO BID PRN; Protocol PRN Reason: Anxiety Last Admin: 02/08/24 18:45 Dose: 0.1 mg Fluvoxamine Maleate (Fluvoxamine Maleate 50 Mg Tablet) 100 mg PO BEDTIME [facility] Last Admin: 02/08/24 23:05 Dose: 100 mg Hydroxyzine HCl (Hydroxyzine Hcl 25 Mg Tablet) 25 mg PO Q6H PRN PRN Reason: anxiety Last Admin: 02/08/24 23:05 Dose: 25 mg Lamotrigine (Lamotrigine 100 Mg Tablet) 200 mg PO DAILY [facility] Last Admin: 02/09/24 08:59 Dose: 200 mg Loratadine (Loratadine 10 Mg Tablet) 10 mg PO BEDTIME PRN PRN Reason: allergies Last Admin: 02/06/24 00:11 Dose: 10 mg Magnesium Hydroxide (Milk Of Magnesia 30 Ml Oral.Susp) 30 ml PO DAILY PRN PRN Reason: Constipation Metformin HCl (Metformin Hcl 500 Mg Tablet) 500 mg PO DAILY [facility] Last Admin: 02/09/24 08:59 Dose: 500 mg Risperidone (Risperidone 0.5 Mg Tablet) 0.5 mg PO TID [facility] Last Admin: 02/09/24 08:59 Dose: 0.5 mg Trazodone HCl (Trazodone Hcl 50 Mg Tablet) 50 mg PO BEDTIME PRN PRN Reason: insomnia Last Admin: 02/08/24 23:05 Dose: 50 mg Allergies Allergies Allergy/AdvReac Type Severity Reaction Status Date / Time peanut [PEANUT] Allergy Severe ANAPHYLAXIS Verified 02/02/24 18:10 Assessment & Plan Assessment & Plan (1) MDD (major depressive disorder), recurrent episode, severe: Qualifiers: Psychotic features: with psychotic features Qualified Code(s): F33.3 - Major depressive disorder, recurrent, severe with psychotic symptoms Status: Acute Code(s): F33.2 - Major depressive disorder, recurrent severe without psychotic features (2) Complex posttraumatic stress disorder: Status: Acute Code(s): F43.10 - Post-traumatic stress disorder, unspecified (3) Autism spectrum disorder: Status: Acute Code(s): F84.0 - Autistic disorder (4) OCD (obsessive compulsive disorder): Qualifiers: Obsessive-compulsive disorder type: unspecified Qualified Code(s): F 42.9 - Obsessive-compulsive disorder, unspecified Status: Acute Code(s): F42.9 - Obsessive-compulsive disorder, unspecified (5) Chronic post-traumatic stress disorder (PTSD): Status: Acute Code(s): F43.12 - Post-traumatic stress disorder, chronic Plan Patient is a 22-year-old male with history of ASD, PTSD, depression, chronic SI and emotional reactivity who presents with worsening depression, increasing SI and now superficial self-harm, in the face of increased emotional dysregulated triggered by parents pending divorce. Patient reports that after discharge from last March 2023, he was doing overall better but depression and intermittent, chronic SI remained. He went to 2 partial programs, most recently this past September 2023 where he was started on Risperdal which helped keep auditory hallucinations lower. This lasted for few weeks but in December, when he learned parents were getting , depression and then AH increased despite Risperdal dose also being increased. Patient reports that chronic SI significantly increased and where it is typically fleeting now became ever present. He has not sure if he made plans are not. This past week his depression, anxiety SI further increased and for the 1st time he superficially self harmed by cutting his arms in an attempt to distract himself from his feelings. This past week patient said I saw something a few nights ago that made me want to... Patient said he has not comfortable saying what he saw at this time but it was upsetting enough that made him know he needed to come to the hospital. Patient is open to medication management. Formulation/clinical reasoning: It seems that post discharge, patient's medication regimen was mild to moderately helpful and he was able stay at the hospital but depression and SI remained. He continues with therapy though says he has not fully open up yet. At this time it is not clear they quality of AH; patient not diagnosed with psychotic illness; will need to explore further. It appears patient has remained on a starting dose of fluvoxamine 50 mg; he is amenable to increasing this dose. Also discussed lithium, risks/side effects which he is open to. -patient has autism Allowed to use own Headphones 24/ including during sleep (allowed last admission); plan will be for patient to receive Headphones from home to download music from iPhone (Iphone and headphone food beverage server to be kept at nurse's station); patient can request music changes; cleared with administration Patient explains that he damián with his autism by listening to specific music, almost consistently throughout the day and night. Patient has specific albums on his phone that he listens to to help him cope through specific activities. He says that without it he has a very hard time thinking clearly or even talking with this telegraphic typewriter operator. Patient's mother Philly corroborates that patient has been utilizing this coping strategy since young childhood and that for his entire life time they have carried around CDs which he listens to near continuously and without, quickly gets emotionally dysregulated. Philly explains that as a part of his IEP in school, he was allowed to use his ear phone/music even while taking tests. She corroborates that Without it patient has a hard time eating and is unable to sleep. Hospital course: 02/04 patient remains very anxious and depressed and feels he is struggling without access to his specific music coping skill; team working on procuring this. Mother adamant about access. Although depressed No SI other than passive which is chronic -reports little sleep since no music; difficult for him to eat for same reason He also endorses auditory hallucinations however these consist of the voices of specific people in his life, saying specific things they actually said to him in the past, though always negative; AVH remains most likely due to PTSD, trauma history and not organic psychotic illness. 02/05 Initially patient very anxious, moving and talking slowly; however later in the day patient reports considerable relief knowing that he will soon get access to music; finds that headphones that can download his music is adequate. SI remains passive. Intermittent AH; Remains with much difficulty sleeping and eating. Patient frustrated with accidental change in food brought up from the kitchen but redirectable -it is telegraphic typewriter operator's opinion (following rec of ASD specialist) that patient requires his very specific music selection, which he has been using for years in order to calm down his anxiety and reduce over-stimulation and ASD symptoms; without much difficulty sleeping and eating. Hopefully this will be remedied soon 02/06 Patient said that he is overall coping without his music. He says though it is difficult he has been able to get food down; however says it is very hard to fall and stay asleep. Also hard to articulate his thoughts and though he is able to talk with people, feels he can not really organize his thoughts to have a real conversation or share what he is thinking about his feelings. He remains hopeful forgetting access to music soon. AH remains and is quite bothersome. 02/07 Patient says doing better now that he has is music. Smiling in the milieu, able to eat and drink better. Feels that now with this imperative coping tool he will be able to better assess if fluvoxamine is helping which he thinks it is PLAN: CV Q 15 minute checks Increased fluvoxamine 100 mg q.h.s. Continue Risperdal 0.5 mg t.i.d. Continue Lamictal 200 mg daily Continue metformin 500 mg daily Of note, patient got S ketamine a few times in October but it made no difference Patient educated on: diagnosis and therapeutic strategies Informed Consent: understands Reason for continued inpatient stay Substantial Risk for: rapid decompensation Time Spent With Patient Time: Total time managing care of this patient today ____ minutes.
--- NOTE | 2024-02-09 10:40 | P.PNPSI_ITS ---
Subjective Subjective Date of Service: 02/09/24 Reason For Visit: PTSD, depression, AUD, SI Interim History: Met with patient; discussed with team Patient feels he is doing much better now that he has is music. He says for the 1st time he got a good night's sleep last night. He says he is much more able to talk with others that the auditory hallucinations are significantly lower; also intermittent chronic SI is less frequent. Patient wanted to discuss his struggles with OCD intrusive thoughts; also struggles with envy. Shared his worries about having relationships, partners, very much wanting to have a meaningful romantic relationship but struggling to do so. Discussed medication management and overall OCD symptoms though they remain are much lower on fluvoxamine. At this time he would like to stay on current dose and see if it continues to be helpful. Clonidine has helped very much with lowering AH; he wants to keep Risperdal on however Mental Status Exam Mental Status Exam Narrative: Pt is alert and oriented; behavior is cooperative and calm, talking more freely; patient is not in distress; dressed in casual attire with but adequate hygiene; mood is described as okay and affect congruent, more calm, a little brighter; eye contact appropriate; Speech still a little delayed but not as much; less psychomotor retardation present; thought process is concrete but also organized and goal directed; Thought content is on struggling with anxiety, depression, tx; otherwise pertinent to relevant topics and without any delusional content, paranoid ideations or grandiosity; continued intermittent SI but only passive; no HI. Patient reports intermittent AH of people yelling. Patients insight and judgment impaired but improving Diagnostics Vital Signs (24Hr): Vital Signs - 24 hr 02/08/24 18:45 02/08/24 20:00 Temperature 97.8 F Pulse Rate 73 Respiratory Rate 16 Blood Pressure 130/74 130/74 Pulse Oximetry 98 Oxygen Delivery Method Room Air BMI result Body Mass Index 23.2 Labs 02/03/24 13:08 02/09/24 08:05 Labs: Laboratory Results - last 48 hr 02/09/24 08:05 Creatinine 1.10 Estim Creat Clear Calc 98.4 Estimated GFR > 60 Medications Medications Current Medications Acetaminophen (Acetaminophen 325 Mg Tablet) 650 mg PO Q6H PRN PRN Reason: Headache/Pain Mild Scale (1-3) Last Admin: 02/05/24 09:12 Dose: 650 mg Al Hydroxide/Mg Hydroxide (Magnesium Hydrox/Alum Hydrox 30 Ml Oral.Susp) 30 ml PO Q6H PRN PRN Reason: Heartburn/Nausea Clonazepam (Clonazepam 0.5 Mg Tablet) 0.5 mg PO BID PRN PRN Reason: as directed Last Admin: 02/08/24 22:23 Dose: 0.5 mg Clonidine HCl (Clonidine Hcl 0.1 Mg Tablet) 0.1 mg PO BID PRN; Protocol PRN Reason: Anxiety Last Admin: 02/08/24 18:45 Dose: 0.1 mg Fluvoxamine Maleate (Fluvoxamine Maleate 50 Mg Tablet) 100 mg PO BEDTIME [facility] Last Admin: 02/08/24 23:05 Dose: 100 mg Hydroxyzine HCl (Hydroxyzine Hcl 25 Mg Tablet) 25 mg PO Q6H PRN PRN Reason: anxiety Last Admin: 02/08/24 23:05 Dose: 25 mg Lamotrigine (Lamotrigine 100 Mg Tablet) 200 mg PO DAILY [facility] Last Admin: 02/09/24 08:59 Dose: 200 mg Loratadine (Loratadine 10 Mg Tablet) 10 mg PO BEDTIME PRN PRN Reason: allergies Last Admin: 02/06/24 00:11 Dose: 10 mg Magnesium Hydroxide (Milk Of Magnesia 30 Ml Oral.Susp) 30 ml PO DAILY PRN PRN Reason: Constipation Metformin HCl (Metformin Hcl 500 Mg Tablet) 500 mg PO DAILY [facility] Last Admin: 02/09/24 08:59 Dose: 500 mg Risperidone (Risperidone 0.5 Mg Tablet) 0.5 mg PO TID [facility] Last Admin: 02/09/24 08:59 Dose: 0.5 mg Trazodone HCl (Trazodone Hcl 50 Mg Tablet) 50 mg PO BEDTIME PRN PRN Reason: insomnia Last Admin: 02/08/24 23:05 Dose: 50 mg Allergies Allergies Allergy/AdvReac Type Severity Reaction Status Date / Time peanut [PEANUT] Allergy Severe ANAPHYLAXIS Verified 02/02/24 18:10 Assessment & Plan Assessment & Plan (1) MDD (major depressive disorder), recurrent episode, severe: Qualifiers: Psychotic features: with psychotic features Qualified Code(s): F33.3 - Major depressive disorder, recurrent, severe with psychotic symptoms Status: Acute Code(s): F33.2 - Major depressive disorder, recurrent severe without psychotic features (2) Complex posttraumatic stress disorder: Status: Acute Code(s): F43.10 - Post-traumatic stress disorder, unspecified (3) Autism spectrum disorder: Status: Acute Code(s): F84.0 - Autistic disorder (4) OCD (obsessive compulsive disorder): Qualifiers: Obsessive-compulsive disorder type: unspecified Qualified Code(s): F 42.9 - Obsessive-compulsive disorder, unspecified Status: Acute Code(s): F42.9 - Obsessive-compulsive disorder, unspecified (5) Chronic post-traumatic stress disorder (PTSD): Status: Acute Code(s): F43.12 - Post-traumatic stress disorder, chronic Plan Patient is a 22-year-old male with history of ASD, PTSD, depression, chronic SI and emotional reactivity who presents with worsening depression, increasing SI and now superficial self-harm, in the face of increased emotional dysregulated triggered by parents pending divorce. Patient reports that after discharge from last March 2023, he was doing overall better but depression and intermittent, chronic SI remained. He went to 2 partial programs, most recently this past September 2023 where he was started on Risperdal which helped keep auditory hallucinations lower. This lasted for few weeks but in December, when he learned parents were getting , depression and then AH increased despite Risperdal dose also being increased. Patient reports that chronic SI significantly increased and where it is typically fleeting now became ever present. He has not sure if he made plans are not. This past week his depression, anxiety SI further increased and for the 1st time he superficially self harmed by cutting his arms in an attempt to distract himself from his feelings. This past week patient said I saw something a few nights ago that made me want to... Patient said he has not comfortable saying what he saw at this time but it was upsetting enough that made him know he needed to come to the hospital. Patient is open to medication management. Formulation/clinical reasoning: It seems that post discharge, patient's medication regimen was mild to moderately helpful and he was able stay at the hospital but depression and SI remained. He continues with therapy though says he has not fully open up yet. At this time it is not clear they quality of AH; patient not diagnosed with psychotic illness; will need to explore further. It appears patient has remained on a starting dose of fluvoxamine 50 mg; he is amenable to increasing this dose. Also discussed lithium, risks/side effects which he is open to. -patient has autism Allowed to use own Headphones 15/04 including during sleep (allowed last admission); plan will be for patient to receive Headphones from home to download music from iPhone (Iphone and headphone crayon sawyer to be kept at nurse's station); patient can request music changes; cleared with administration Patient explains that he damián with his autism by listening to specific music, almost consistently throughout the day and night. Patient has specific albums on his phone that he listens to to help him cope through specific activities. He says that without it he has a very hard time thinking clearly or even talking with this functional tester typewriters. Patient's mother Philly corroborates that patient has been utilizing this coping strategy since young childhood and that for his entire life time they have carried around CDs which he listens to near continuously and without, quickly gets emotionally dysregulated. Philly explains that as a part of his IEP in school, he was allowed to use his ear phone/music even while taking tests. She corroborates that Without it patient has a hard time eating and is unable to sleep. Hospital course: 02/04 patient remains very anxious and depressed and feels he is struggling without access to his specific music coping skill; team working on procuring this. Mother adamant about access. Although depressed No SI other than passive which is chronic -reports little sleep since no music; difficult for him to eat for same reason He also endorses auditory hallucinations however these consist of the voices of specific people in his life, saying specific things they actually said to him in the past, though always negative; AVH remains most likely due to PTSD, trauma history and not organic psychotic illness. 02/05 Initially patient very anxious, moving and talking slowly; however later in the day patient reports considerable relief knowing that he will soon get access to music; finds that headphones that can download his music is adequate. SI remains passive. Intermittent AH; Remains with much difficulty sleeping and eating. Patient frustrated with accidental change in food brought up from the kitchen but redirectable -it is functional tester typewriters's opinion (following rec of ASD specialist) that patient requires his very specific music selection, which he has been using for years in order to calm down his anxiety and reduce over-stimulation and ASD symptoms; without much difficulty sleeping and eating. Hopefully this will be remedied soon 02/06 Patient said that he is overall coping without his music. He says though it is difficult he has been able to get food down; however says it is very hard to fall and stay asleep. Also hard to articulate his thoughts and though he is able to talk with people, feels he can not really organize his thoughts to have a real conversation or share what he is thinking about his feelings. He remains hopeful forgetting access to music soon. AH remains and is quite bothersome. 02/07 Patient says doing better now that he has is music. Smiling in the milieu, able to eat and drink better. Feels that now with this imperative coping tool he will be able to better assess if fluvoxamine is helping which he thinks it is 02/08 Patient feels he is doing much better now that he has is music. He says for the 1st time he got a good night's sleep last night. He says he is much more able to talk with others that the auditory hallucinations are significantly lower; also intermittent chronic SI is less frequent. Patient wanted to discuss his struggles with OCD intrusive thoughts; also struggles with envy. Shared his worries about having relationships, partners, very much wanting to have a meaningful romantic relationship but struggling to do so. Discussed medication management and overall OCD symptoms though they remain are much lower on fluvoxamine. At this time he would like to stay on current dose and see if it continues to be helpful. Clonidine has helped very much with lowering AH; he wants to keep Risperdal on however PLAN: CV Q 15 minute checks Increased fluvoxamine 100 mg q.h.s. Continue Risperdal 0.5 mg t.i.d. Continue Lamictal 200 mg daily Continue metformin 500 mg daily Of note, patient got S ketamine a few times in October but it made no difference Patient educated on: diagnosis, medication risk/benefits and therapeutic strategies Informed Consent: understands Reason for continued inpatient stay Substantial Risk for: rapid decompensation Time Spent With Patient Time: Total time managing care of this patient today ____ minutes.
[2024-02-09] MEDS: clonazePAM 0.5 MG TABLET PO ×2 (14:29→23:41)
[2024-02-09 15:39] VITALS: BP 116/57
[2024-02-09] MEDS: cloNIDine HCL 0.1 MG TABLET PO ×2 (15:39→21:13)
[2024-02-09 20:00] VITALS: BP 123/69; PULSE 71; RESP 18; TEMP 36.2; O2SAT 100
[2024-02-09] MEDS: fluvoxaMINE Maleate 50 MG TABLET 100 MG PO (23:41)
[2024-02-09] MEDS: traZODone HCL 50 MG TABLET PO (23:41)
[2024-02-09] MEDS: hydrOXYzine HCL 25 MG TABLET PO (23:41)
[2024-02-10 08:00] VITALS: RESP 18
--- NOTE | 2024-02-10 09:58 | HO.PSYCHPN ---
Subjective Subjective Date of Service: 02/10/24 Reason For Visit: PTSD, depression, AUD, SI Interim History: met with patient; discussed with team pt says he's doing better; he shared that last night he had flashbacks to traumatic experience but was able to use coping skills and worked through it on his own; he says at this point, no SI at all and AH minimal. Mental Status Exam Mental Status Exam Narrative: Pt is alert and oriented; behavior is cooperative and calm, talking more freely; patient is not in distress; dressed in casual attire with but adequate hygiene; mood is described as good and affect congruent, more calm, a little brighter; eye contact appropriate; Speech is with a brief delay, but otherwise normal prosody, volume, rate; no psychomotor retardation present; thought process is concrete but also organized and goal directed; Thought content is on dealing with struggles; tx; otherwise pertinent to relevant topics and without any delusional content, paranoid ideations or grandiosity; no SI; no HI. Patient reports intermittent AH of people yelling but much less and not intrusive Patients insight and judgment fair. Diagnostics Vital Signs (24Hr): Vital Signs - 24 hr 02/09/24 15:39 02/09/24 20:00 02/10/24 08:00 Temperature 97.1 F Pulse Rate 71 Respiratory Rate 18 18 Blood Pressure 116/57 L 123/69 Pulse Oximetry 100 Oxygen Delivery Method Room Air BMI result Body Mass Index 23.2 Labs 02/03/24 13:08 02/09/24 08:05 Labs: Laboratory Results - last 48 hr 02/09/24 08:05 Creatinine 1.10 Estim Creat Clear Calc 98.4 Estimated GFR > 60 Medications Medications Current Medications Acetaminophen (Acetaminophen 325 Mg Tablet) 650 mg PO Q6H PRN PRN Reason: Headache/Pain Mild Scale (1-3) Last Admin: 02/05/24 09:12 Dose: 650 mg Al Hydroxide/Mg Hydroxide (Magnesium Hydrox/Alum Hydrox 30 Ml Oral.Susp) 30 ml PO Q6H PRN PRN Reason: Heartburn/Nausea Clonazepam (Clonazepam 0.5 Mg Tablet) 0.5 mg PO BID PRN PRN Reason: as directed Last Admin: 02/09/24 23:41 Dose: 0.5 mg Clonidine HCl (Clonidine Hcl 0.1 Mg Tablet) 0.1 mg PO Q4H PRN; Protocol PRN Reason: Anxiety Last Admin: 02/09/24 21:13 Dose: 0.1 mg Fluvoxamine Maleate (Fluvoxamine Maleate 50 Mg Tablet) 100 mg PO BEDTIME [facility] Last Admin: 02/09/24 23:41 Dose: 100 mg Hydroxyzine HCl (Hydroxyzine Hcl 25 Mg Tablet) 25 mg PO Q6H PRN PRN Reason: anxiety Last Admin: 02/09/24 23:41 Dose: 25 mg Lamotrigine (Lamotrigine 100 Mg Tablet) 200 mg PO DAILY [facility] Last Admin: 02/09/24 08:59 Dose: 200 mg Loratadine (Loratadine 10 Mg Tablet) 10 mg PO BEDTIME PRN PRN Reason: allergies Last Admin: 02/06/24 00:11 Dose: 10 mg Metformin HCl (Metformin Hcl 500 Mg Tablet) 500 mg PO DAILY [facility] Last Admin: 02/09/24 08:59 Dose: 500 mg Polyethylene Glycol (Polyethylene Glycol 3350 17 Gm Powd.Pack) 17 gm PO BID PRN PRN Reason: constipation Risperidone (Risperidone 0.5 Mg Tablet) 0.5 mg PO TID [facility] Last Admin: 02/09/24 23:41 Dose: 0.5 mg Trazodone HCl (Trazodone Hcl 50 Mg Tablet) 50 mg PO BEDTIME PRN PRN Reason: insomnia Last Admin: 02/09/24 23:41 Dose: 50 mg Allergies Allergies Allergy/AdvReac Type Severity Reaction Status Date / Time peanut [PEANUT] Allergy Severe ANAPHYLAXIS Verified 02/02/24 18:10 Assessment & Plan Assessment & Plan (1) MDD (major depressive disorder), recurrent episode, severe: Qualifiers: Psychotic features: with psychotic features Qualified Code(s): F33.3 - Major depressive disorder, recurrent, severe with psychotic symptoms Status: Acute Code(s): F33.2 - Major depressive disorder, recurrent severe without psychotic features (2) Complex posttraumatic stress disorder: Status: Acute Code(s): F43.10 - Post-traumatic stress disorder, unspecified (3) Autism spectrum disorder: Status: Acute Code(s): F84.0 - Autistic disorder (4) OCD (obsessive compulsive disorder): Qualifiers: Obsessive-compulsive disorder type: unspecified Qualified Code(s): F42.9 - Obsessive-compulsive disorder, unspecified Status: Acute Code(s): F42.9 - Obsessive-compulsive disorder, unspecified (5) Chronic post-traumatic stress disorder (PTSD): Status: Acute Code(s): F43.12 - Post-traumatic stress disorder, chronic Plan Patient is a 22-year-old male with history of ASD, PTSD, depression, chronic SI and emotional reactivity who presents with worsening depression, increasing SI and now superficial self-harm, in the face of increased emotional dysregulated triggered by parents pending divorce. Patient reports that after discharge from last March 2023, he was doing overall better but depression and intermittent, chronic SI remained. He went to 2 partial programs, most recently this past September 2023 where he was started on Risperdal which helped keep auditory hallucinations lower. This lasted for few weeks but in December, when he learned parents were getting , depression and then AH increased despite Risperdal dose also being increased. Patient reports that chronic SI significantly increased and where it is typically fleeting now became ever present. He has not sure if he made plans are not. This past week his depression, anxiety SI further increased and for the 1st time he superficially self harmed by cutting his arms in an attempt to distract himself from his feelings. This past week patient said I saw something a few nights ago that made me want to... Patient said he has not comfortable saying what he saw at this time but it was upsetting enough that made him know he needed to come to the hospital. Patient is open to medication management. Formulation/clinical reasoning: It seems that post discharge, patient's medication regimen was mild to moderately helpful and he was able stay at the hospital but depression and SI remained. He continues with therapy though says he has not fully open up yet. At this time it is not clear they quality of AH; patient not diagnosed with psychotic illness; will need to explore further. It appears patient has remained on a starting dose of fluvoxamine 50 mg; he is amenable to increasing this dose. Also discussed lithium, risks/side effects which he is open to. -patient has autism Allowed to use own Headphones 24/ including during sleep (allowed last admission); plan will be for patient to receive Headphones from home to download music from iPhone (Iphone and headphone charger tester to be kept at nurse's station); patient can request music changes; cleared with administration Patient explains that he damián with his autism by listening to specific music, almost consistently throughout the day and night. Patient has specific albums on his phone that he listens to to help him cope through specific activities. He says that without it he has a very hard time thinking clearly or even talking with this curriculum writer. Patient's mother Philly corroborates that patient has been utilizing this coping strategy since young childhood and that for his entire life time they have carried around CDs which he listens to near continuously and without, quickly gets emotionally dysregulated. Philly explains that as a part of his IEP in school, he was allowed to use his ear phone/music even while taking tests. She corroborates that Without it patient has a hard time eating and is unable to sleep. Hospital course: 02/04 patient remains very anxious and depressed and feels he is struggling without access to his specific music coping skill; team working on procuring this. Mother adamant about access. Although depressed No SI other than passive which is chronic -reports little sleep since no music; difficult for him to eat for same reason He also endorses auditory hallucinations however these consist of the voices of specific people in his life, saying specific things they actually said to him in the past, though always negative; AVH remains most likely due to PTSD, trauma history and not organic psychotic illness. 02/05 Initially patient very anxious, moving and talking slowly; however later in the day patient reports considerable relief knowing that he will soon get access to music; finds that headphones that can download his music is adequate. SI remains passive. Intermittent AH; Remains with much difficulty sleeping and eating. Patient frustrated with accidental change in food brought up from the kitchen but redirectable -it is curriculum writer's opinion (following rec of ASD specialist) that patient requires his very specific music selection, which he has been using for years in order to calm down his anxiety and reduce over-stimulation and ASD symptoms; without much difficulty sleeping and eating. Hopefully this will be remedied soon 02/06 Patient said that he is overall coping without his music. He says though it is difficult he has been able to get food down; however says it is very hard to fall and stay asleep. Also hard to articulate his thoughts and though he is able to talk with people, feels he can not really organize his thoughts to have a real conversation or share what he is thinking about his feelings. He remains hopeful forgetting access to music soon. AH remains and is quite bothersome. 02/07 Patient says doing better now that he has is music. Smiling in the milieu, able to eat and drink better. Feels that now with this imperative coping tool he will be able to better assess if fluvoxamine is helping which he thinks it is 02/08 Patient feels he is doing much better now that he has is music. He says for the 1st time he got a good night's sleep last night. He says he is much more able to talk with others that the auditory hallucinations are significantly lower; also intermittent chronic SI is less frequent. Patient wanted to discuss his struggles with OCD intrusive thoughts; also struggles with envy. Shared his worries about having relationships, partners, very much wanting to have a meaningful romantic relationship but struggling to do so. Discussed medication management and overall OCD symptoms though they remain are much lower on fluvoxamine. At this time he would like to stay on current dose and see if it continues to be helpful. Clonidine has helped very much with lowering AH; he wants to keep Risperdal on however 02/09 pt says he's doing better; he shared that last night he had flashbacks to traumatic experience but was able to use coping skills and worked through it on his own; he says at this point, no SI at all and AH minimal. PLAN: CV Q 15 minute checks Increased fluvoxamine 100 mg q.h.s. Continue Risperdal 0.5 mg t.i.d. Continue Lamictal 200 mg daily Continue metformin 500 mg daily Of note, patient got S ketamine a few times in October but it made no difference Patient educated on: diagnosis, medication risk/benefits and therapeutic strategies Informed Consent: understands Reason for continued inpatient stay Substantial Risk for: stable for discharge and rapid decompensation Time Spent With Patient Time: Total time managing care of this patient today ____ minutes.
[2024-02-10] MEDS: metFORMIN HCl 500 MG TABLET PO (10:15)
[2024-02-10] MEDS: lamoTRIgine 100 MG TABLET 200 MG PO (10:15)
[2024-02-10] MEDS: risperiDONE 0.5 MG TABLET PO ×3 (10:15→23:18)
[2024-02-10 13:34] VITALS: BP 120/59
[2024-02-10] MEDS: cloNIDine HCL 0.1 MG TABLET PO ×2 (13:34→23:17)
[2024-02-10 20:00] VITALS: BP 104/56; PULSE 87; RESP 16; TEMP 36.6; O2SAT 98
[2024-02-10] MEDS: fluvoxaMINE Maleate 50 MG TABLET 100 MG PO (23:18)
[2024-02-10] MEDS: clonazePAM 0.5 MG TABLET PO (23:18)
[2024-02-10] MEDS: traZODone HCL 50 MG TABLET PO (23:18)
[2024-02-10] MEDS: hydrOXYzine HCL 25 MG TABLET PO (23:18)
[2024-02-11 08:00] VITALS: BP 98/49; PULSE 86; RESP 20; TEMP 37.3; O2SAT 97
[2024-02-11] MEDS: lamoTRIgine 100 MG TABLET 200 MG PO (08:41)
[2024-02-11] MEDS: risperiDONE 0.5 MG TABLET PO ×3 (08:41→23:05)
[2024-02-11] MEDS: metFORMIN HCl 500 MG TABLET PO (08:42)
--- NOTE | 2024-02-11 09:49 | P.PNPSI_ITS ---
Subjective Subjective Date of Service: 02/11/24 Reason For Visit: PTSD, depression, AUD, SI Interim History: met with patient; discussed with team pt feeling a little down today missing some of the peers discharged. Overall feels better and more resolved with his feelings about struggles in his life, optimistic about working on them. Mental Status Exam Mental Status Exam Narrative: Pt is alert and oriented; behavior is cooperative and calm, talking more freely; patient is not in distress; dressed in casual attire with but adequate hygiene; mood is described as a little down and affect congruent, though overall more calm, a little brighter; eye contact appropriate; Speech is with a brief delay, but otherwise normal prosody, volume, rate; no psychomotor retardation present; thought process is concrete but also organized and goal directed; Thought content is on dealing with struggles; tx; otherwise pertinent to relevant topics and without any delusional content, paranoid ideations or grandiosity; no SI; no HI. No AVH. Patients insight and judgment fair. Diagnostics Vital Signs (24Hr): Vital Signs - 24 hr 02/10/24 13:34 02/10/24 20:00 02/11/24 08:00 Temperature 97.8 F 99.1 F Pulse Rate 87 86 Respiratory Rate 16 20 Blood Pressure 120/59 L 104/56 L 98/49 L Pulse Oximetry 98 97 Oxygen Delivery Method Room Air Room Air BMI result Body Mass Index 23.2 Labs 02/03/24 13:08 02/09/24 08:05 Medications Medications Current Medications Acetaminophen (Acetaminophen 325 Mg Tablet) 650 mg PO Q6H PRN PRN Reason: Headache/Pain Mild Scale (1-3) Last Admin: 02/05/24 09:12 Dose: 650 mg Al Hydroxide/Mg Hydroxide (Magnesium Hydrox/Alum Hydrox 30 Ml Oral.Susp) 30 ml PO Q6H PRN PRN Reason: Heartburn/Nausea Clonazepam (Clonazepam 0.5 Mg Tablet) 0.5 mg PO BID PRN PRN Reason: as directed Last Admin: 02/10/24 23:18 Dose: 0.5 mg Clonidine HCl (Clonidine Hcl 0.1 Mg Tablet) 0.1 mg PO Q4H PRN; Protocol PRN Reason: Anxiety Last Admin: 02/10/24 23:17 Dose: 0.1 mg Fluvoxamine Maleate (Fluvoxamine Maleate 50 Mg Tablet) 100 mg PO BEDTIME [facility] Last Admin: 02/10/24 23:18 Dose: 100 mg Hydroxyzine HCl (Hydroxyzine Hcl 25 Mg Tablet) 25 mg PO Q6H PRN PRN Reason: anxiety Last Admin: 02/10/24 23:18 Dose: 25 mg Lamotrigine (Lamotrigine 100 Mg Tablet) 200 mg PO DAILY [facility] Last Admin: 02/11/24 08:41 Dose: 200 mg Loratadine (Loratadine 10 Mg Tablet) 10 mg PO BEDTIME PRN PRN Reason: allergies Last Admin: 02/06/24 00:11 Dose: 10 mg Metformin HCl (Metformin Hcl 500 Mg Tablet) 500 mg PO DAILY [facility] Last Admin: 02/11/24 08:42 Dose: 500 mg Polyethylene Glycol (Polyethylene Glycol 3350 17 Gm Powd.Pack) 17 gm PO BID PRN PRN Reason: constipation Risperidone (Risperidone 0.5 Mg Tablet) 0.5 mg PO TID [facility] Last Admin: 02/11/24 08:41 Dose: 0.5 mg Trazodone HCl (Trazodone Hcl 50 Mg Tablet) 50 mg PO BEDTIME PRN PRN Reason: insomnia Last Admin: 02/10/24 23:18 Dose: 50 mg Allergies Allergies Allergy/AdvReac Type Severity Reaction Status Date / Time peanut [PEANUT] Allergy Severe ANAPHYLAXIS Verified 02/02/24 18:10 Assessment & Plan Assessment & Plan (1) MDD (major depressive disorder), recurrent episode, severe: Qualifiers: Psychotic features: with psychotic features Qualified Code(s): F33.3 - Major depressive disorder, recurrent, severe with psychotic symptoms Status: Acute Code(s): F33.2 - Major depressive disorder, recurrent severe without psychotic features (2) Complex posttraumatic stress disorder: Status: Acute Code(s): F43.10 - Post-traumatic stress disorder, unspecified (3) Autism spectrum disorder: Status: Acute Code(s): F84.0 - Autistic disorder (4) OCD (obsessive compulsive disorder): Qualifiers: Obsessive-compulsive disorder type: unspecified Qualified Code(s): F 42.9 - Obsessive-compulsive disorder, unspecified Status: Acute Code(s): F42.9 - Obsessive-compulsive disorder, unspecified (5) Chronic post-traumatic stress disorder (PTSD): Status: Acute Code(s): F43.12 - Post-traumatic stress disorder, chronic Plan Patient is a 22-year-old male with history of ASD, PTSD, depression, chronic SI and emotional reactivity who presents with worsening depression, increasing SI and now superficial self-harm, in the face of increased emotional dysregulated triggered by parents pending divorce. Patient reports that after discharge from last March 2023, he was doing overall better but depression and intermittent, chronic SI remained. He went to 2 partial programs, most recently this past September 2023 where he was started on Risperdal which helped keep auditory hallucinations lower. This lasted for few weeks but in December, when he learned parents were getting , depression and then AH increased despite Risperdal dose also being increased. Patient reports that chronic SI significantly increased and where it is typically fleeting now became ever present. He has not sure if he made plans are not. This past week his depression, anxiety SI further increased and for the 1st time he superficially self harmed by cutting his arms in an attempt to distract himself from his feelings. This past week patient said I saw something a few nights ago that made me want to... Patient said he has not comfortable saying what he saw at this time but it was upsetting enough that made him know he needed to come to the hospital. Patient is open to medication management. Formulation/clinical reasoning: It seems that post discharge, patient's medication regimen was mild to moderately helpful and he was able stay at the hospital but depression and SI remained. He continues with therapy though says he has not fully open up yet. At this time it is not clear they quality of AH; patient not diagnosed with psychotic illness; will need to explore further. It appears patient has remained on a starting dose of fluvoxamine 50 mg; he is amenable to increasing this dose. Also discussed lithium, risks/side effects which he is open to. -patient has autism Allowed to use own Headphones 24/ including during sleep (allowed last admission); plan will be for patient to receive Headphones from home to download music from iPhone (Iphone and headphone milling/polishing operator to be kept at nurse's station); patient can request music changes; cleared with administration Patient explains that he damián with his autism by listening to specific music, almost consistently throughout the day and night. Patient has specific albums on his phone that he listens to to help him cope through specific activities. He says that without it he has a very hard time thinking clearly or even talking with this racebook writer. Patient's mother Philly corroborates that patient has been utilizing this coping strategy since young childhood and that for his entire life time they have carried around CDs which he listens to near continuously and without, quickly gets emotionally dysregulated. Philly explains that as a part of his IEP in school, he was allowed to use his ear phone/music even while taking tests. She corroborates that Without it patient has a hard time eating and is unable to sleep. Hospital course: 02/04 patient remains very anxious and depressed and feels he is struggling without access to his specific music coping skill; team working on procuring this. Mother adamant about access. Although depressed No SI other than passive which is chronic -reports little sleep since no music; difficult for him to eat for same reason He also endorses auditory hallucinations however these consist of the voices of specific people in his life, saying specific things they actually said to him in the past, though always negative; AVH remains most likely due to PTSD, trauma history and not organic psychotic illness. 02/05 Initially patient very anxious, moving and talking slowly; however later in the day patient reports considerable relief knowing that he will soon get access to music; finds that headphones that can download his music is adequate. SI remains passive. Intermittent AH; Remains with much difficulty sleeping and eating. Patient frustrated with accidental change in food brought up from the kitchen but redirectable -it is racebook writer's opinion (following rec of ASD specialist) that patient requires his very specific music selection, which he has been using for years in order to calm down his anxiety and reduce over-stimulation and ASD symptoms; without much difficulty sleeping and eating. Hopefully this will be remedied soon 02/06 Patient said that he is overall coping without his music. He says though it is difficult he has been able to get food down; however says it is very hard to fall and stay asleep. Also hard to articulate his thoughts and though he is able to talk with people, feels he can not really organize his thoughts to have a real conversation or share what he is thinking about his feelings. He remains hopeful forgetting access to music soon. AH remains and is quite bothersome. 02/07 Patient says doing better now that he has is music. Smiling in the milieu, able to eat and drink better. Feels that now with this imperative coping tool he will be able to better assess if fluvoxamine is helping which he thinks it is 02/08 Patient feels he is doing much better now that he has is music. He says for the 1st time he got a good night's sleep last night. He says he is much more able to talk with others that the auditory hallucinations are significantly lower; also intermittent chronic SI is less frequent. Patient wanted to discuss his struggles with OCD intrusive thoughts; also struggles with envy. Shared his worries about having relationships, partners, very much wanting to have a meaningful romantic relationship but struggling to do so. Discussed medication management and overall OCD symptoms though they remain are much lower on fluvoxamine. At this time he would like to stay on current dose and see if it continues to be helpful. Clonidine has helped very much with lowering AH; he wants to keep Risperdal on however 02/09 pt says he's doing better; he shared that last night he had flashbacks to traumatic experience but was able to use coping skills and worked through it on his own; he says at this point, no SI at all and AH minimal. -mildly hypotensive; asymptomatic 02/10 continue tx plan PLAN: CV Q 15 minute checks Increased fluvoxamine 100 mg q.h.s. Continue Risperdal 0.5 mg t.i.d. Continue Lamictal 200 mg daily Continue metformin 500 mg daily Of note, patient got S ketamine a few times in October but it made no difference Patient educated on: diagnosis and therapeutic strategies Informed Consent: understands Reason for continued inpatient stay Substantial Risk for: stable for discharge and rapid decompensation Time Spent With Patient Time: Total time managing care of this patient today ____ minutes.
[2024-02-11 13:46] VITALS: BP 115/61
[2024-02-11] MEDS: cloNIDine HCL 0.1 MG TABLET PO ×2 (13:46→23:00)
[2024-02-11] MEDS: hydrOXYzine HCL 25 MG TABLET PO ×2 (13:46→23:00)
[2024-02-11 13:48] VITALS: BP 115/61; PULSE 66
[2024-02-11 20:00] VITALS: BP 116/58; PULSE 82; TEMP 37.1; O2SAT 99
[2024-02-11 23:00] VITALS: BP 109/60
[2024-02-11] MEDS: traZODone HCL 50 MG TABLET PO (23:00)
[2024-02-11] MEDS: fluvoxaMINE Maleate 50 MG TABLET 100 MG PO (23:00)
[2024-02-11] MEDS: clonazePAM 0.5 MG TABLET PO (23:00)
[2024-02-12] MEDS: risperiDONE 0.5 MG TABLET PO ×3 (09:06→23:07)
[2024-02-12] MEDS: metFORMIN HCl 500 MG TABLET PO (09:06)
[2024-02-12] MEDS: lamoTRIgine 100 MG TABLET 200 MG PO (09:06)
[2024-02-12 09:10] VITALS: BP 103/58; PULSE 88; RESP 18; TEMP 36.6; O2SAT 97
--- NOTE | 2024-02-12 09:53 | HO.PSYCHPN ---
Subjective Subjective Date of Service: 02/12/24 Reason For Visit: PTSD, depression, AUD, SI Interim History: Met with patient; discussed with team Patient reports he is doing well, feels safe, no AVH. He feels back to his regular self and good about returning home. Patient had a meeting with both his mom's which he felt good about and said he is hopeful about continuing to get along well. Patient feels he is able to cope with his anxiety and is appreciative of help received. Mental Status Exam Mental Status Exam Narrative: Pt is alert and oriented; behavior is cooperative and calm, friendly, talking more freely; patient is not in distress; dressed in casual attire with but adequate hygiene; mood is described as good and affect congruent, brighter, more calm; eye contact appropriate; Speech is with a brief delay but at baseline and otherwise normal prosody, volume, rate; no psychomotor retardation present; thought process is concrete but also organized and goal directed; Thought content is on dealing with struggles, discharge, tx; otherwise pertinent to relevant topics and without any delusional content, paranoid ideations or grandiosity; no SI; no HI. No AVH. Patients insight and judgment fair. Diagnostics Vital Signs (24Hr): Vital Signs - 24 hr 02/11/24 13:46 02/11/24 13:48 02/11/24 20:00 Temperature 98.7 F Pulse Rate 66 82 Respiratory Rate Blood Pressure 115/61 115/61 116/58 L Pulse Oximetry 99 Oxygen Delivery Method Room Air 02/11/24 23:00 02/12/24 09:10 Temperature 97.9 F Pulse Rate 88 Respiratory Rate 18 Blood Pressure 109/60 103/58 L Pulse Oximetry 97 Oxygen Delivery Method Room Air BMI result Body Mass Index 23.2 Labs 02/03/24 13:08 02/09/24 08:05 Medications Medications Current Medications Acetaminophen (Acetaminophen 325 Mg Tablet) 650 mg PO Q6H PRN PRN Reason: Headache/Pain Mild Scale (1-3) Last Admin: 02/05/24 09:12 Dose: 650 mg Al Hydroxide/Mg Hydroxide (Magnesium Hydrox/Alum Hydrox 30 Ml Oral.Susp) 30 ml PO Q6H PRN PRN Reason: Heartburn/Nausea Clonazepam (Clonazepam 0.5 Mg Tablet) 0.5 mg PO BID PRN PRN Reason: as directed Last Admin: 02/11/24 23:00 Dose: 0.5 mg Clonidine HCl (Clonidine Hcl 0.1 Mg Tablet) 0.1 mg PO Q4H PRN; Protocol PRN Reason: Anxiety Last Admin: 02/11/24 23:00 Dose: 0.1 mg Fluvoxamine Maleate (Fluvoxamine Maleate 50 Mg Tablet) 100 mg PO BEDTIME ALAN Last Admin: 02/11/24 23:00 Dose: 100 mg Hydroxyzine HCl (Hydroxyzine Hcl 25 Mg Tablet) 25 mg PO Q6H PRN PRN Reason: anxiety Last Admin: 02/11/24 23:00 Dose: 25 mg Lamotrigine (Lamotrigine 100 Mg Tablet) 200 mg PO DAILY [facility] Last Admin: 02/12/24 09:06 Dose: 200 mg Loratadine (Loratadine 10 Mg Tablet) 10 mg PO BEDTIME PRN PRN Reason: allergies Last Admin: 02/06/24 00:11 Dose: 10 mg Metformin HCl (Metformin Hcl 500 Mg Tablet) 500 mg PO DAILY [facility] Last Admin: 02/12/24 09:06 Dose: 500 mg Polyethylene Glycol (Polyethylene Glycol 3350 17 Gm Powd.Pack) 17 gm PO BID PRN PRN Reason: constipation Risperidone (Risperidone 0.5 Mg Tablet) 0.5 mg PO TID [facility] Last Admin: 02/12/24 09:06 Dose: 0.5 mg Trazodone HCl (Trazodone Hcl 50 Mg Tablet) 50 mg PO BEDTIME PRN PRN Reason: insomnia Last Admin: 02/11/24 23:00 Dose: 50 mg Allergies Allergies Allergy/AdvReac Type Severity Reaction Status Date / Time peanut [PEANUT] Allergy Severe ANAPHYLAXIS Verified 02/02/24 18:10 Assessment & Plan Assessment & Plan (1) MDD (major depressive disorder), recurrent episode, severe: Qualifiers: Psychotic features: with psychotic features Qualified Code(s): F33.3 - Major depressive disorder, recurrent, severe with psychotic symptoms Status: Acute Code(s): F33.2 - Major depressive disorder, recurrent severe without psychotic features (2) Complex posttraumatic stress disorder: Status: Acute Code(s): F43.10 - Post-traumatic stress disorder, unspecified (3) Autism spectrum disorder: Status: Acute Code(s): F84.0 - Autistic disorder (4) OCD (obsessive compulsive disorder): Qualifiers: Obsessive-compulsive disorder type: unspecified Qualified Code(s): F42.9 - Obsessive-compulsive disorder, unspecified Status: Acute Code(s): F42.9 - Obsessive-compulsive disorder, unspecified (5) Chronic post-traumatic stress disorder (PTSD): Status: Acute Code(s): F43.12 - Post-traumatic stress disorder, chronic Plan Patient is a 22-year-old male with history of ASD, PTSD, depression, chronic SI and emotional reactivity who presents with worsening depression, increasing SI and now superficial self-harm, in the face of increased emotional dysregulated triggered by parents pending divorce. Patient reports that after discharge from last March 2023, he was doing overall better but depression and intermittent, chronic SI remained. He went to 2 partial programs, most recently this past September 2023 where he was started on Risperdal which helped keep auditory hallucinations lower. This lasted for few weeks but in December, when he learned parents were getting , depression and then AH increased despite Risperdal dose also being increased. Patient reports that chronic SI significantly increased and where it is typically fleeting now became ever present. He has not sure if he made plans are not. This past week his depression, anxiety SI further increased and for the 1st time he superficially self harmed by cutting his arms in an attempt to distract himself from his feelings. This past week patient said I saw something a few nights ago that made me want to... Patient said he has not comfortable saying what he saw at this time but it was upsetting enough that made him know he needed to come to the hospital. Patient is open to medication management. Formulation/clinical reasoning: It seems that post discharge, patient's medication regimen was mild to moderately helpful and he was able stay at the hospital but depression and SI remained. He continues with therapy though says he has not fully open up yet. At this time it is not clear they quality of AH; patient not diagnosed with psychotic illness; will need to explore further. It appears patient has remained on a starting dose of fluvoxamine 50 mg; he is amenable to increasing this dose. Also discussed lithium, risks/side effects which he is open to. -patient has autism Allowed to use own Headphones 24/ including during sleep (allowed last admission); plan will be for patient to receive Headphones from home to download music from iPhone (Iphone and headphone research microbiologist to be kept at nurse's station); patient can request music changes; cleared with administration Patient explains that he damián with his autism by listening to specific music, almost consistently throughout the day and night. Patient has specific albums on his phone that he listens to to help him cope through specific activities. He says that without it he has a very hard time thinking clearly or even talking with this resume writer. Patient's mother Philly corroborates that patient has been utilizing this coping strategy since young childhood and that for his entire life time they have carried around CDs which he listens to near continuously and without, quickly gets emotionally dysregulated. Philly explains that as a part of his IEP in school, he was allowed to use his ear phone/music even while taking tests. She corroborates that Without it patient has a hard time eating and is unable to sleep. Hospital course: 02/04 patient remains very anxious and depressed and feels he is struggling without access to his specific music coping skill; team working on procuring this. Mother adamant about access. Although depressed No SI other than passive which is chronic -reports little sleep since no music; difficult for him to eat for same reason He also endorses auditory hallucinations however these consist of the voices of specific people in his life, saying specific things they actually said to him in the past, though always negative; AVH remains most likely due to PTSD, trauma history and not organic psychotic illness. 02/05 Initially patient very anxious, moving and talking slowly; however later in the day patient reports considerable relief knowing that he will soon get access to music; finds that headphones that can download his music is adequate. SI remains passive. Intermittent AH; Remains with much difficulty sleeping and eating. Patient frustrated with accidental change in food brought up from the kitchen but redirectable -it is resume writer's opinion (following rec of ASD specialist) that patient requires his very specific music selection, which he has been using for years in order to calm down his anxiety and reduce over-stimulation and ASD symptoms; without much difficulty sleeping and eating. Hopefully this will be remedied soon 02/06 Patient said that he is overall coping without his music. He says though it is difficult he has been able to get food down; however says it is very hard to fall and stay asleep. Also hard to articulate his thoughts and though he is able to talk with people, feels he can not really organize his thoughts to have a real conversation or share what he is thinking about his feelings. He remains hopeful forgetting access to music soon. AH remains and is quite bothersome. 02/07 Patient says doing better now that he has is music. Smiling in the milieu, able to eat and drink better. Feels that now with this imperative coping tool he will be able to better assess if fluvoxamine is helping which he thinks it is 02/08 Patient feels he is doing much better now that he has is music. He says for the 1st time he got a good night's sleep last night. He says he is much more able to talk with others that the auditory hallucinations are significantly lower; also intermittent chronic SI is less frequent. Patient wanted to discuss his struggles with OCD intrusive thoughts; also struggles with envy. Shared his worries about having relationships, partners, very much wanting to have a meaningful romantic relationship but struggling to do so. Discussed medication management and overall OCD symptoms though they remain are much lower on fluvoxamine. At this time he would like to stay on current dose and see if it continues to be helpful. Clonidine has helped very much with lowering AH; he wants to keep Risperdal on however 02/09 pt says he's doing better; he shared that last night he had flashbacks to traumatic experience but was able to use coping skills and worked through it on his own; he says at this point, no SI at all and AH minimal. -mildly hypotensive; asymptomatic 02/10 continue tx plan 02/11 patient reports that he is doing well; feels ready to discharge home. Feels safe, no AVH and ready to continue treatment as an outpatient PLAN: CV Q 15 minute checks Increased fluvoxamine 100 mg q.h.s. Continue Risperdal 0.5 mg t.i.d. Continue Lamictal 200 mg daily Continue metformin 500 mg daily Of note, patient got S ketamine a few times in October but it made no difference Patient educated on: diagnosis, medication risk/benefits and therapeutic strategies Informed Consent: understands Reason for continued inpatient stay Substantial Risk for: stable for discharge Time Spent With Patient Time: Total time managing care of this patient today ____ minutes.
[2024-02-12 13:12] VITALS: BP 113/53
[2024-02-12] MEDS: cloNIDine HCL 0.1 MG TABLET PO ×2 (13:12→23:06)
[2024-02-12] MEDS: clonazePAM 0.5 MG TABLET PO ×2 (14:19→23:06)
[2024-02-12 20:00] VITALS: BP 105/53; PULSE 61; RESP 18; TEMP 36.6; O2SAT 98
--- NOTE | 2024-02-12 22:29 | PM.PSYDC ---
DS: Providers Provider Date of Service: 02/13/24 Date of admission: 02/03/24 12:22 Date of discharge: 02/13/24 Primary care physician: Raheem Montemayor MD DS: Diagnosis Discharge Diagnosis (1) MDD (major depressive disorder), recurrent episode, severe: Status: Acute (2) Complex posttraumatic stress disorder: Status: Acute (3) Autism spectrum disorder: Status: Acute (4) OCD (obsessive compulsive disorder): Status: Acute (5) Chronic post-traumatic stress disorder (PTSD): Status: Acute DS: Medications Discharge Medications Home Medications: Home Medications ?Medication ?Instructions ?Recorded ?Confirmed cetirizine 10 mg tablet (Zyrtec) 10 mg PO BEDTIME PRN allergies 10/01/23 02/02/24 metformin 500 mg tablet 500 mg PO DAILY 02/02/24 02/02/24 Previous Rx's ?Medication ?Instructions ?Recorded fluvoxamine 100 mg tablet 100 mg PO BEDTIME 30 days #30 tabs 02/11/24 clonazepam 0.5 mg tablet 0.5 mg PO BID PRN as directed #14 02/12/24 tabs clonidine HCl 0.1 mg tablet 0.1 mg PO Q4H PRN Anxiety 30 days 02/12/24 #90 tabs hydroxyzine HCl 25 mg tablet 25 mg PO Q6H PRN anxiety 30 days 02/12/24 #90 tabs lamotrigine 200 mg tablet 200 mg PO DAILY 30 days #30 tabs 02/12/24 risperidone 0.5 mg tablet 0.5 mg PO TID 30 days #90 tabs 02/12/24 (Risperdal) trazodone 50 mg tablet 50 mg PO BEDTIME PRN insomnia 30 02/12/24 days #30 tabs Mental Status Exam Mental Status Exam Narrative: Pt is alert and oriented; behavior is cooperative and calm, friendly, talking more freely; patient is not in distress; dressed in casual attire with but adequate hygiene; mood is described as good and affect congruent, brighter, more calm; eye contact appropriate; Speech is with a brief delay but at baseline and otherwise normal prosody, volume, rate; no psychomotor retardation present; thought process is concrete but also organized and goal directed; Thought content is on dealing with struggles, discharge, tx; otherwise pertinent to relevant topics and without any delusional content, paranoid ideations or grandiosity; no SI; no HI. No AVH. Patients insight and judgment fair. Data Data Completed and Pending Completed studies during hospitalization [Text1]: 02/09/24 08:05 Creatinine 1.10 Estim Creat Clear Calc 98.4 Estimated GFR > 60 DS: Summary Hospital Course Hospital Course: Patient is a 22-year-old male with history of ASD, PTSD, depression, chronic SI and emotional reactivity who presents with worsening depression, increasing SI and now superficial self-harm, in the face of increased emotional dysregulated triggered by parents pending divorce. Patient reports that after discharge from last March 2023, he was doing overall better but depression and intermittent, chronic SI remained. He went to 2 partial programs, most recently this past September 2023 where he was started on Risperdal which helped keep auditory hallucinations lower. This lasted for few weeks but in December, when he learned parents were getting , depression and then AH increased despite Risperdal dose also being increased. Patient reports that chronic SI significantly increased and where it is typically fleeting now became ever present. He has not sure if he made plans are not. This past week his depression, anxiety SI further increased and for the 1st time he superficially self harmed by cutting his arms in an attempt to distract himself from his feelings. This past week patient said I saw something a few nights ago that made me want to... Patient said he has not comfortable saying what he saw at this time but it was upsetting enough that made him know he needed to come to the hospital. Patient is open to medication management. Formulation/clinical reasoning: It seems that post discharge, patient's medication regimen was mild to moderately helpful and he was able stay at the hospital but depression and SI remained. He continues with therapy though says he has not fully open up yet. At this time it is not clear they quality of AH; patient not diagnosed with psychotic illness; will need to explore further. It appears patient has remained on a starting dose of fluvoxamine 50 mg; he is amenable to increasing this dose. Also discussed lithium, risks/side effects which he is open to. -patient has autism Allowed to use unit approved Headphones 15/04 including during sleep (allowed last admission); patient can request music changes; cleared with administration Patient explains that he damián with his autism by listening to specific music, almost consistently throughout the day and night. Patient has specific albums on his phone that he listens to to help him cope through specific activities. He says that without it he has a very hard time thinking clearly or even talking with this television script writer. Patient's mother Philly corroborates that patient has been utilizing this coping strategy since young childhood and that for his entire life time they have carried around CDs which he listens to near continuously and without, quickly gets emotionally dysregulated. Philly explains that as a part of his IEP in school, he was allowed to use his ear phone/music even while taking tests. She corroborates that Without it patient has a hard time eating and is unable to sleep. Hospital course: 02/04 on admission, patient very anxious and depressed and feels he is struggling without access to his specific music coping skill; team working on procuring this. Mother adamant about access. Although depressed No SI other than passive which is chronic -reports little sleep since no music; difficult for him to eat for same reason He also endorses auditory hallucinations however these consist of the voices of specific people in his life, saying specific things they actually said to him in the past, though always negative; AVH remains most likely due to PTSD, trauma history and not organic psychotic illness. 02/05 Initially patient very anxious, moving and talking slowly; however later in the day patient reports considerable relief knowing that he will soon get access to music; finds that headphones that can download his music is adequate. SI remains passive. Intermittent AH; Remains with much difficulty sleeping and eating. Patient frustrated with accidental change in food brought up from the kitchen but redirectable -it is television script writer's opinion (following rec of ASD specialist) that patient requires his very specific music selection, which he has been using for years in order to calm down his anxiety and reduce over-stimulation and ASD symptoms; without much difficulty sleeping and eating. Hopefully this will be remedied soon 02/06 Patient said that he is overall coping without his music. He says though it is difficult he has been able to get food down; however says it is very hard to fall and stay asleep. Also hard to articulate his thoughts and though he is able to talk with people, feels he can not really organize his thoughts to have a real conversation or share what he is thinking about his feelings. He remains hopeful forgetting access to music soon. AH remains and is quite bothersome. 02/07 Patient says doing better now that he has is music. Smiling in the milieu, able to eat and drink better. Feels that now with this imperative coping tool he will be able to better assess if fluvoxamine is helping which he thinks it is 02/08 Patient feels he is doing much better now that he has is music. He says for the 1st time he got a good night's sleep last night. He says he is much more able to talk with others that the auditory hallucinations are significantly lower; also intermittent chronic SI is less frequent. Patient wanted to discuss his struggles with OCD intrusive thoughts; also struggles with envy. Shared his worries about having relationships, partners, very much wanting to have a meaningful romantic relationship but struggling to do so. Discussed medication management and overall OCD symptoms though they remain are much lower on fluvoxamine. At this time he would like to stay on current dose and see if it continues to be helpful. Clonidine has helped very much with lowering AH; he wants to keep Risperdal on however 02/09 pt says he's doing better; he shared that last night he had flashbacks to traumatic experience but was able to use coping skills and worked through it on his own; he says at this point, no SI at all and AH minimal. -mildly hypotensive; asymptomatic By the end of admission, patient felt he was doing well and ready to return home. He is returning to his mother, with whom he has a good rapport and their living situation has changed so will not be in the same household with his other parent with whom he has friction. Patient reports he is a good mood and optimistic; his affect is noticeably brighter. [place] that medication regimen was helpful. No AVH, no SI future oriented. Patient feels capable of continuing to reach out for help whenever he feels the need. Patient is appropriate to return to the community for treatment. He is not in imminent risk for harm to self or others and request for discharge honored. Medication: Increased fluvoxamine 100 mg q.h.s. Continued Risperdal 0.5 mg t.i.d. Continued Lamictal 200 mg daily Time spent discussing smoking cessation with patient: 3 to 10 minutes Status at Discharge Functional status at discharge: independent ambulation Overall status at discharge: patient is back to baseline Time Spent with Patient Time attestation: Total time managing care of this patient today ____ minutes. Time spent: Greater than 30 minutes Discharge Plan Discharge Anticipated Discharge Date/Time: 02/13/24 11:30 Patient Disposition: Home, Self-Care Discharge Diagnosis: MDD, recurrent, severe with psychotic features, in near full remission Referrals: Psychiatry and Therapy [facility] [Other] - 02/14/24 12:00 pm Raheem Montemayor MD [Primary Care Provider] - 02/18/24 1:40 pm (Follow up with Vinay STANLEY (Dr. Montemayor has no availability) on 02/17 at 1:40 pm ) Discharge Medications: New fluvoxamine 100 mg tablet 100 mg PO BEDTIME 30 Days Qty: 30 0RF Continued cetirizine [Zyrtec] 10 mg Tablet 10 mg PO BEDTIME PRN (Reason: allergies) metformin 500 mg tablet 500 mg PO DAILY lamotrigine 200 mg tablet 200 mg PO DAILY 30 Days Qty: 30 0RF trazodone 50 mg tablet 50 mg PO BEDTIME PRN (Reason: insomnia) 30 Days Qty: 30 0RF clonazepam 0.5 mg tablet 0.5 mg PO BID PRN (Reason: as directed) Qty: 14 0RF hydroxyzine HCl 25 mg tablet 25 mg PO Q6H PRN (Reason: anxiety) 30 Days Qty: 90 0RF Changed clonidine HCl 0.1 mg Tablet 0.1 mg PO Q4H PRN (Reason: Anxiety) 30 Days Qty: 90 0RF risperidone [Risperdal] 0.5 mg tablet 0.5 mg PO TID 30 Days Qty: 90 0RF Discontinued fluvoxamine 50 mg tablet See Rx Instructions .ROUTE .COMPLEX Qty: 30 0RF Rx Instructions: take 1/2 tablet po daily at bedtime for 6 days then increase to one tablet po daily at bedtime Discharge Orders: Discharge Order (Routine); Ordered 02/13/24 Ordered By: Rick Goncalves Diet: Regular diet Activity on Discharge: As tolerated Stand Alone Forms: Patient Portal Discharge page, Community Support Print Language: Persian Care Plan Goals: Maintain mood and safe behaviors Take medications as prescribed Practice coping skills Continue with outpatient providers and reach out to them as needed Health Concerns: Mood stability and behaviors Plan of Treatment: Follow up with your PCP, psychiatric provider and other outpatient providers regarding above concerns Take medications as prescribed Assessment: Risk assessment at time of discharge:? Patient was interviewed prior to discharge and found to be fully oriented and without any SI or HI. Patient has improved insight and judgment and wants to continue treatment. Patient is not in imminent risk of harm to self or others and has a safety plan that includes presenting to the closest ER or calling 911 if feeling unsafe.? Patient has been observed closely by nursing and unit staff throughout admission; patient has not engaged in any behaviors that suggest dangerousness to self or others and has demonstrated appropriate behaviors and impulse control Discharge Date/Time: 02/13/24 11:01
[2024-02-12] MEDS: fluvoxaMINE Maleate 50 MG TABLET 100 MG PO (23:05)
[2024-02-12 23:06] VITALS: BP 105/53
[2024-02-12] MEDS: hydrOXYzine HCL 25 MG TABLET PO (23:06)
[2024-02-13 07:00] VITALS: BMI 22.5
[2024-02-13] MEDS: risperiDONE 0.5 MG TABLET PO (08:20)
[2024-02-13] MEDS: lamoTRIgine 100 MG TABLET 200 MG PO (08:20)
[2024-02-13] MEDS: metFORMIN HCl 500 MG TABLET PO (08:20)
[2024-02-13 09:26] VITALS: BP 119/59
[2024-02-13] MEDS: cloNIDine HCL 0.1 MG TABLET PO (09:26)
[2024-02-13 09:28] VITALS: BP 119/59; PULSE 82; RESP 20; TEMP 36.5; O2SAT 98
== END 2024-02-13 11:01 | disposition home or self-care (01) | DRG 751 ==
LOC: HO.ED 19:03 → HO.PM5 02-03 12:47
PROVIDERS: Emergency Medicine; Physician Assistant; Physician Assistant Medical; Admitting Provider Clinical Nurse Specialist Psychiatric/Mental Health, Adult; Emergency Provider Emergency Medicine; PCP Internal Medicine; Visit Provider Psychiatry & Neurology Psychiatry
DX: F33.3 Major depressive disorder, recurrent, severe with psychotic symptoms (principal); R45.851 Suicidal ideations; F42.9 Obsessive-compulsive disorder, unspecified; F43.12 Post-traumatic stress disorder, chronic; F84.0 Autistic disorder; Z20.822 Contact with and (suspected) exposure to COVID-19; Z79.84 Long term (current) use of oral hypoglycemic drugs; Z79.899 Other long term (current) drug therapy
CPT/HCPCS: 36415; 80053; 80061; 80179; 80307; 81001; 82565; 82607; 82746; 83036; 83540; 83735; 84439; 84443; 85025; 87635; 93005; 99285; S9485

== ENCOUNTER → 2024-02-03 08:32 | Outpatient (BNV) | payer OTHER, SELFPAY | PROVIDERS: Emergency Provider Emergency Medicine; PCP Internal Medicine; Visit Provider Internal Medicine Cardiovascular Disease | DX: R94.31 Abnormal electrocardiogram [ECG] [EKG] (principal) | CPT/HCPCS: 93010 ==

== ENCOUNTER → 2024-02-03 12:22 | Outpatient (BNV) | payer OTHER, SELFPAY | PROVIDERS: Admitting Provider Clinical Nurse Specialist Psychiatric/Mental Health, Adult; Emergency Provider Emergency Medicine; PCP Internal Medicine; Visit Provider Psychiatry & Neurology Psychiatry | DX: F33.3 Major depressive disorder, recurrent, severe with psychotic symptoms (principal); F43.11 Post-traumatic stress disorder, acute; F84.0 Autistic disorder; F42.9 Obsessive-compulsive disorder, unspecified | CPT/HCPCS: 90792; 99231; 99232; 99238 ==